=== PATIENT | female | born 1975 | race Caucasian/White ===

== ENCOUNTER 2020-06-24 13:02 | Observation (INO) | payer BC, OTHER ==
[2020-06-24] MEDS ORDERED: SODIUM CHLORIDE 0.9% 1,000 ML IV ONE (14:03)
[2020-06-24 14:08] LABS: Appearance,Urine Clear (Clear); Bilirubin,Urine Negative (Negative); Blood,Urine Negative (Negative); Color,Urine Yellow; Glucose,Urine (UA) Negative (Negative); Ketones,Urine Negative (Negative); Leukocyte Esterase,Urine Negative (Negative); Nitrite,Urine Negative (Negative); PH, Urine 5.5 (5.0-8.0); Protein,Urine Negative (Negative); Specific Gravity,Urine 1.013 (1.001-1.035); Urobilinogen,Urine <2.0 mg/dL (<2.0)
[2020-06-24 14:21] LABS: ALT 9 U/L (4-34); AST 19 U/L (14-36); Acetaminophen <10.0 ug/mL; African American GFR (CKD) >90 (>60 ml/min/1.73 sqM); Albumin 4.2 g/dL (3.5-5.0); Alcohol <10 mg/dL; Alkaline Phosphatase 89 U/L (38-126); Anion Gap 9 mmol/L; Blood Urea Nitrogen 9 mg/dL (7-17); Calcium 9.5 mg/dL (8.4-10.2); Carbon Dioxide 21 mmol/L (22-30); Chloride 111 mmol/L (98-107); Creatine Kinase 62 U/L (30-135); Glucose 97 mg/dL (74-99); INR 0.9 (<1.2); Non-African American GFR(CKD) 86 (>60 ml/min/1.73 sqM); Partial Thromboplastin Time 25.1 sec (22.0-30.0); Potassium 4.2 mmol/L (3.5-5.1); Prothrombin Time 9.8 sec (9.0-12.0); Salicylate <1.0 mg/dL; Sodium 141 mmol/L (137-145); Total Bilirubin 0.4 mg/dL (0.2-1.3); Total Protein 7.5 g/dL (6.3-8.2)
[2020-06-24 14:26] LABS: Basophils # (A) 0.1 k/uL (0-0.2); Basophils % (A) 1 %; Eosinophils # (A) 0.1 k/uL (0-0.7); Eosinophils % (A) 1 %; HCT 46.1 % (34.0-46.0); HGB 14.5 gm/dL (11.4-16.0); Lymphocytes # (A) 3.6 k/uL (1.0-4.8); Lymphocytes % (A) 35 %; MCH 31.5 pg (25.0-35.0); MCHC 31.5 g/dL (31.0-37.0); Monocytes # (A) 0.4 k/uL (0-1.0); Monocytes % (A) 4 %; Neutrophils # (A) 5.9 k/uL (1.3-7.7); Neutrophils % (A) 58 %; Platelet Count 326 k/uL (150-450); WBC 10.1 k/uL (3.8-10.6)
[2020-06-24 14:37] LABS: MCV 100.1 fL (80.0-100.0)
[2020-06-24 14:43] LABS: Amphetamine Screen,Urine Not Detected (NotDetected); Barbiturate Screen,Urine Not Detected (NotDetected); Benzodiazepines Screen,Urine Detected (NotDetected); Cocaine Screen,Urine Not Detected (NotDetected); Methadone Screen, Urine Not Detected (NotDetected); Opiate Screen,Urine Not Detected (NotDetected); Oxycodone Screen, Urine Not Detected (NotDetected); Phencyclidine Screen,Urine Not Detected (NotDetected); Tricyclic Antidepressant,Urine Not Detected (NotDetected); Urn Cannabinoid Scrn Detected (NotDetected)
--- NOTE | 2020-06-24 15:55 | XR ---
EXAMINATION TYPE: XR chest 2V DATE OF EXAM: 06/24/2020 COMPARISON: 11/29/2015 HISTORY: Chest pain TECHNIQUE: Frontal and lateral views of the chest are obtained. FINDINGS: There is no focal air space opacity. No evidence for pneumothorax. No pleural effusion. The cardiac silhouette size is within normal limits. The osseous structures are grossly intact. IMPRESSION: 1. No acute cardiopulmonary process.
--- NOTE | 2020-06-24 15:58 | CT ---
EXAMINATION TYPE: CT brain wo con DATE OF EXAM: 06/24/2020 COMPARISON: None HISTORY: Altered mental status. CT DLP: 1064.[address] of the brain was performed. The ventricles, basal cisterns and sulci overlying the cerebral convexities demonstrate a normal appe arance. There is no evidence for intracranial hemorrhage or sulcal effacement. No mass effects are seen. Osseous calvarium is intact. If symptoms persist consider MRI as clinically warranted. IMPRESSION: 1. No acute intracranial process is seen at this time.
--- NOTE | 2020-06-24 16:03 | ED ---
General Adult HPI - General Chief complaint: Recheck/Abnormal Lab/Rx Stated complaint: Nauseas Time Seen by Provider: 06/24/20 13:28 Source: patient Mode of arrival: wheelchair Limitations: no limitations - History of Present Illness Initial comments: Patient is a 44-year-old male with past medical history of bipolar, seizure disorder who presents emergency Department with altered mental status. Patient's psychiatrist makes a call to the emergency department to notify us of the patient's planned transport to the hospital. Patient was seen in office today. He reported that she had weakness, nausea and decreased mental status. Mother states that this has been going on for the past 7-10 days. She has had a decreased appetite for the past 2 weeks and has had PE. Reports every time she tries to eat she throws up. Admits to having an appetite. Psychiatrist reports of the patient is on several [place] medications include Geodon, Xanax, Cymb bill, trazodone, Remeron, Lamictal, Keppra and Topamax. Last medication change was 2 months ago. Patient denies any abdominal pain. Admits to headaches without visual changes. No unilateral numbness or weakness. Denies any chest pain or shortness of breath. Denies any back or flank pain. No changes in her bowel or bladder habits. No other alleviating, precipitating or modifying factors - Related Data Home Medications Medication Instructions Recorded Confirmed Topiramate [Topamax] 400 mg PO DAILY 05/06/14 06/24/20 ALPRAZolam [Xanax] 1 mg PO QID 11/26/15 06/24/20 levETIRAcetam [Keppra] 1,500 mg PO BID 11/26/15 06/24/20 traZODone HCL 150 mg PO HS 11/26/15 06/24/20 Ziprasidone [Geodon] 160 mg PO HS 12/16/15 06/24/20 DULoxetine HCL [Cymbalta] 30 mg PO DAILY 06/24/20 06/24/20 Mirtazapine [Remeron] 30 mg PO HS 06/24/20 06/24/20 Topiramate [Topamax] 200 mg PO HS 06/24/20 06/24/20 lamoTRIgine [LaMICtal] 200 mg PO BID 06/24/20 06/24/20 Allergies Allergy/AdvReac Type Severity Reaction Status Date / Time No Known Allergies Allergy Verified 06/24/20 14:26 Review of Systems ROS Statement: Those systems with pertinent positive or pertinent negative responses have been documented in the HPI. ROS Other: All systems not noted in ROS Statement are negative. Past Medical History Past Medical History: Hearing Disorder / Deafness, Seizure Disorder Additional Past Medical History / Comment(s): EPILEPSY, LAST SEIZURE 09/2015. Neuropathy HANDS. History of Any Multi-Drug Resistant Organisms: None Reported Past Surgical History: Appendectomy, Hysterectomy, Orthopedic Surgery Additional Past Surgical History / Comment(s): RADIAL NERVE SURG [place]. Past Anesthesia/Blood Transfusion Reactions: No Reported Reaction Past Psychological History: Anxiety, Bipolar, Depression Smoking Status: Current every day smoker Past Alcohol Use History: Occasional Past Drug Use History: Marijuana - Past Family History Father Family Medical History: Coronary Artery Disease (CAD) General Exam Limitations: no limitations General appearance: alert, in no apparent distress Head exam: Present: atraumatic, normocephalic, normal inspection Eye exam: Present: normal appearance, PERRL, EOMI. Absent: scleral icterus, c onjunctival injection, periorbital swelling ENT exam: Present: normal exam, mucous membranes moist Neck exam: Present: normal inspection. Absent: tenderness, meningismus, lymphadenopathy Respiratory exam: Present: normal lung sounds bilaterally. Absent: respiratory distress, wheezes, rales, rhonchi, stridor Cardiovascular Exam: Present: regular rate, normal rhythm, normal heart sounds. Absent: systolic murmur, diastolic murmur, rubs, gallop, clicks GI/Abdominal exam: Present: soft, normal bowel sounds. Absent: distended, tenderness, guarding, rebound, rigid Extremities exam: Present: normal inspection, full ROM, normal capillary refill. Absent: tenderness, pedal edema, joint swelling, calf tenderness Back exam: Present: normal inspection Neurological exam: Present: alert, oriented X3, CN II-XII intact Psychiatric exam: Present: flat affect Skin exam: Present: warm, dry, intact, normal color. Absent: rash Course Vital Signs 06/24/20 06/24/20 13:15 16:59 Temperature 98.3 F Pulse Rate 85 64 Respiratory 18 17 Rate Blood Pressure 98/96 106/68 O2 Sat by Pulse 96 98 Oximetry EKG Findings - EKG Comments: EKG Findings:: EKG demonstrates normal sinus rhythm with ventricular rate of 69. MN interval 166. QRS 88. QTC of 413. No acute ST segment elevations or depressions concerning for ischemic changes Medical Decision Making - Medical Decision Making Upon arrival patient is placed into room 24. A thorough history and physical exam was performed. Peripheral iv is established. Patient is given a liter bolus of normal saline. Laboratory studies were conducted. She went for CT of her brain because of her reported altered mental status and headache. Urine is positive for benzodiazepines and marijuana. CT brain demonstrates no acute intracranial process. Chest x-ray demonstrates no acute cardiopulmonary process. A call discuss case with Dr. Enriquez who accepted admission for the patient. I will place psychiatry on consult as well as GI. Patient remained in stable condition awaiting a bed on the floor - Lab Data Result diagrams: 06/25/20 08:16 06/25/20 08:16 Lab Results 06/24/20 06/24/20 06/24/20 Range/Units 13:41 13:41 13:41 WBC 10.1 (3.8-10.6) k/uL RBC 4.60 (3.80-5.40) m/uL Hgb 14.5 (11.4-16.0) gm/dL Hct 46.1 H (34.0-46.0) % MCV 100.1 H D (80.0-100.0) fL MCH 31.5 (25.0-35.0) pg MCHC 31.5 (31.0-37.0) g/dL RDW 12.0 (11.5-15.5) % Plt Count 326 (150-450) k/uL Neutrophils % 58 % Lymphocytes % 35 % Monocytes % 4 % Eosinophils % 1 % Basophils % 1 % Neutrophils # 5.9 (1.3-7.7) k/uL Lymphocytes # 3.6 (1.0-4.8) k/uL Monocytes # 0.4 (0-1.0) k/uL Eosinophils # 0.1 (0-0.7) k/uL Basophils # 0.1 (0-0.2) k/uL PT 9.8 (9.0-12.0) sec INR 0.9 (<1.2) APTT 25.1 (22.0-30.0) sec Sodium (137-145) mmol/L Potassium (3.5-5.1) mmol/L Chloride (98-107) mmol/L Carbon Dioxide (22-30) mmol/L Anion Gap mmol/L BUN (7-17) mg/dL Creatinine (0.52-1.04) mg/dL Est GFR (CKD-EPI)AfAm (>60 ml/min/1.73 sqM) Est GFR (CKD-EPI)NonAf (>60 ml/min/1.73 sqM) Glucose (74-99) mg/dL Calcium (8.4-10.2) mg/dL Total Bilirubin (0.2-1.3) mg/dL AST (14-36) U/L ALT (4-34) U/L Alkaline Phosphatase (38-126) U/L Ammonia (<30) umol/L Creatine Kinase (30-135) U/L Troponin I (0.000-0.034) ng/mL Total Protein (6.3-8.2) g/dL Albumin (3.5-5.0) g/dL Urine Color Yellow Urine Appearance Clear (Clear) Urine pH 5.5 (5.0-8.0) Ur Specific [place] 1.013 (1.001-1.035) Urine Protein Negative (Negative) Urine Glucose (UA) Negative (Negative) Urine Ketones Negative (Negative) Urine Blood Negative (Negative) Urine Nitrite Negative (Negative) Urine Bilirubin Negative (Negative) Urine Urobilinogen <2.0 (<2.0) mg/dL Ur Leukocyte Esterase Negative (Negative) Urine HCG, Qual (Not Detectd) Salicylates mg/dL Urine Opiates Screen Not Detected (NotDetected) Ur Oxycodone Screen Not Detected (NotDetected) Urine Methadone Screen Not Detected (NotDetected) Ur Propoxyphene Screen Not Detected (NotDetected) Acetaminophen ug/mL Ur Barbiturates Screen Not Detected (NotDetected) U Tricyclic Antidepress Not Detected (NotDetected) Ur Phencyclidine Scrn Not Detected (NotDetected) Ur Amphetamines Screen Not Detected (NotDetected) U Methamphetamines Scrn Not Detected (NotDetected) U Benzodiazepines Scrn Detected H (NotDetected) Urine Cocaine Screen Not Detected (NotDetected) U Marijuana (THC) Screen Detected H (NotDetected) Serum Alcohol mg/dL 06/24/20 06/24/20 06/24/20 Range/Units 13:41 13:41 13:41 WBC (3.8-10.6) k/uL RBC (3.80-5.40) m/uL Hgb (11.4-16.0) gm/dL Hct (34.0-46.0) % MCV (80.0-100.0) fL MCH (25.0-35.0) pg MCHC (31.0-37.0) g/dL RDW (11.5-15.5) % Plt Count (150-450) k/uL Neutrophils % % Lymphocytes % % Monocytes % % Eosinophils % % Basophils % % Neutrophils # (1.3-7.7) k/uL Lymphocytes # (1.0-4.8) k/uL Monocytes # (0-1.0) k/uL Eosinophils # (0-0.7) k/uL Basophils # (0-0.2) k/uL PT (9.0-12.0) sec INR (<1.2) APTT (22.0-30.0) sec Sodium 141 (137-145) mmol/L Potassium 4.2 (3.5-5.1) mmol/L Chloride 111 H (98-107) mmol/L Carbon Dioxide 21 L (22-30) mmol/L Anion Gap 9 mmol/L BUN 9 (7-17) mg/dL Creatinine 0.83 (0.52-1.04) mg/dL Est GFR (CKD-EPI)AfAm >90 (>60 ml/min/1.73 sqM) Est GFR (CKD-EPI)NonAf 86 (>60 ml/min/1.73 sqM) Glucose 97 (74-99) mg/dL Calcium 9.5 (8.4-10.2) mg/dL Total Bilirubin 0.4 (0.2-1.3) mg/dL AST 19 (14-36) U/L ALT 9 (4-34) U/L Alkaline Phosphatase 89 (38-126) U/L Ammonia 32 H (<30) umol/L Creatine Kinase 62 (30-135) U/L Troponin I (0.000-0.034) ng/mL Total Protein 7.5 (6.3-8.2) g/dL Albumin 4.2 (3.5-5.0) g/dL Urine Color Urine Appearance (Clear) Urine pH (5.0-8.0) Ur Specific [place] (1.001-1.035) Urine Protein (Negative) Urine Glucose (UA) (Negative) Urine Ketones (Negative) Urine Blood (Negative) Urine Nitrite (Negative) Urine Bilirubin (Negative) Urine Urobilinogen (<2.0) mg/dL Ur Leukocyte Esterase (Negative) Urine HCG, Qual Not Detected (Not Detectd) Salicylates <1.0 mg/dL Urine Opiates Screen (NotDetected) Ur Oxycodone Screen (NotDetected) Urine Methadone Screen (NotDetected) Ur Propoxyphene Screen (NotDetected) Acetaminophen <10.0 ug/mL Ur Barbiturates Screen (NotDetected) U Tricyclic Antidepress (NotDetected) Ur Phencyclidine Scrn (NotDetected) Ur Amphetamines Screen (NotDetected) U Methamphetamines Scrn (NotDetected) U Benzodiazepines Scrn (NotDetected) Urine Cocaine Screen (NotDetected) U Marijuana (THC) Screen (NotDetected) Serum Alcohol <10 mg/dL 06/24/20 Range/Units 13:41 WBC (3.8-10.6) k/uL RBC (3.80-5.40) m/uL Hgb (11.4-16.0) gm/dL Hct (34.0-46.0) % MCV (80.0-100.0) fL MCH (25.0-35.0) pg MCHC (31.0-37.0) g/dL RDW (11.5-15.5) % Plt Count (150-450) k/uL Neutrophils % % Lymphocytes % % Monocytes % % Eosinophils % % Basophils % % Neutrophils # (1.3-7.7) k/uL Lymphocytes # (1.0-4.8) k/uL Monocytes # (0-1.0) k/uL Eosinophils # (0-0.7) k/uL Basophils # (0-0.2) k/uL PT (9.0-12.0) sec INR (<1.2) APTT (22.0-30.0) sec Sodium (137-145) mmol/L Potassium (3.5-5.1) mmol/L Chloride (98-107) mmol/L Carbon Dioxide (22-30) mmol/L Anion Gap mmol/L BUN (7-17) mg/dL Creatinine (0.52-1.04) mg/dL Est GFR (CKD-EPI)AfAm (>60 ml/min/1.73 sqM) Est GFR (CKD-EPI)NonAf (>60 ml/min/1.73 sqM) Glucose (74-99) mg/dL Calcium (8.4-10.2) mg/dL Total Bilirubin (0.2-1.3) mg/dL AST (14-36) U/L ALT (4-34) U/L Alkaline Phosphatase (38-126) U/L Ammonia (<30) umol/L Creatine Kinase (30-135) U/L Troponin I <0.012 (0.000-0.034) ng/mL Total Protein (6.3-8.2) g/dL Albumin (3.5-5.0) g/dL Urine Color Urine Appearance (Clear) Urine pH (5.0-8.0) Ur Specific [place] (1.001-1.035) Urine Protein (Negative) Urine Glucose (UA) (Negative) Urine Ketones (Negative) Urine Blood (Negative) Urine Nitrite (Negative) Urine Bilirubin (Negative) Urine Urobilinogen (<2.0) mg/dL Ur Leukocyte Esterase (Negative) Urine HCG, Qual (Not Detectd) Salicylates mg/dL Urine Opiates Screen (NotDetected) Ur Oxycodone Screen (NotDetected) Urine Methadone Screen (NotDetected) Ur Propoxyphene Screen (NotDetected) Acetaminophen ug/mL Ur Barbiturates Screen (NotDetected) U Tricyclic Antidepress (NotDetected) Ur Phencyclidine Scrn (NotDetected) Ur Amphetamines Screen (NotDetected) U Methamphetamines Scrn (NotDetected) U Benzodiazepines Scrn (NotDetected) Urine Cocaine Screen (NotDetected) U Marijuana (THC) Screen (NotDetected) Serum Alcohol mg/dL Disposition Clinical Impression: Acute encephalopathy, Nausea and vomiting Disposition: ADMITTED IP TO THIS HOSP Condition: Stable Is patient prescribed a controlled substance at d/c from ED?: No Decision to Admit Reason: Admit from EC Decision Date: 06/24/20 Decision Time: 16:36
[2020-06-24] MEDS ORDERED: NALOXONE 0.4 MG/ML 1 ML VIAL IV PRN (16:36)
[2020-06-24] MEDS ORDERED: ONDANSETRON 4 MG/2 ML VIAL IVP PRN (16:36)
[2020-06-24] MEDS ORDERED: NICOTINE 21MG/24HR PATCH TRANSDERM STA (16:42)
[2020-06-24] MEDS: PANTOPRAZOLE 40 MG/10 ML VIAL IV SCH (17:16)
[2020-06-24] MEDS: SODIUM CHLORIDE 0.9% 1,000 ML IV SCH (18:01)
[2020-06-24] MEDS: MIRTAZAPINE 15 MG TAB PO SCH (21:03)
[2020-06-24] MEDS ORDERED: ALPRAZolam 1 MG TAB PO ONE (22:00)
[2020-06-25] MEDS: SODIUM CHLORIDE 0.9% 1,000 ML IV SCH ×3 (02:37→22:24)
[2020-06-25] MEDS: PANTOPRAZOLE 40 MG/10 ML VIAL IV SCH (08:31)
[2020-06-25] MEDS: DULoxetine HCL 30 MG CAPSULE.DR PO SCH (08:32)
[2020-06-25 08:54] LABS: Basophils % (A) 1 %; Eosinophils % (A) 0 %; HCT 45.8 % (34.0-46.0); HGB 14.3 gm/dL (11.4-16.0); Lymphocytes # (A) 2.4 k/uL (1.0-4.8); Lymphocytes % (A) 32 %; MCH 31.8 pg (25.0-35.0); MCHC 31.2 g/dL (31.0-37.0); MCV 102.1 fL (80.0-100.0); Mean Platelet Volume 6.8; Monocytes # (A) 0.3 k/uL (0-1.0); Monocytes % (A) 4 %; Neutrophils # (A) 4.7 k/uL (1.3-7.7); Neutrophils % (A) 62 %; Platelet Count 325 k/uL (150-450); RBC 4.49 m/uL (3.80-5.40); WBC 7.4 k/uL (3.8-10.6)
[2020-06-25 09:05] LABS: African American GFR (CKD) >90 (>60 ml/min/1.73 sqM); Anion Gap 7 mmol/L; Blood Urea Nitrogen 6 mg/dL (7-17); Calcium 8.7 mg/dL (8.4-10.2); Carbon Dioxide 18 mmol/L (22-30); Chloride 116 mmol/L (98-107); Glucose 109 mg/dL (74-99); Non-African American GFR(CKD) >90 (>60 ml/min/1.73 sqM); Potassium 4.5 mmol/L (3.5-5.1); Sodium 141 mmol/L (137-145)
[2020-06-25] MEDS ORDERED: IBUPROFEN 800 MG TAB PO PRN (09:58)
--- NOTE | 2020-06-25 10:05 | P.HPIM ---
History of Present Illness H&P Date: 06/25/20 Chief Complaint: Nausea and diarrhea Vaishnavi Mendieta, is a 44-year-old female who presented to [facility] emergency room with a chief complaint of severe nausea and episodes of diarrhea and altered mental status, patient has known history of bipolar disorde r and anxiety disorder and seizure disorder, she was evaluated in the emergency room there was concern about polypharmacy, patient is maintained on Remeron, trazodone, Cymbalta, Xanax, Lamictal, Geodon, Keppra, and Topamax medications were held in the emergency room and patient was admitted to observation unit for further evaluation, neurology and psychiatry consultation were requested to evaluate medications, gastroenterology consultation was requested in that regard to nausea and diarrhea. Patient stated that she had cardiopulmonary arrest at age of 6 months she developed seizure disorder after the and has been maintained on seizure medications since then, she also has a known history of bipolar disorder and follows with psychiatry as outpatient. She denies any previous history of acute pancreatitis peptic ulcer disease or gallbladder disease. Patient was evaluated in the emergency room, her vital exam reveals a temperature of 98.3 pulse 85 respiration 18 blood pressure 98/69 pulse ox 96% on room air, her CBC was normal, CMP was normal ammonia level was slightly elevated at 32, amylase and lipase was not done, chest x-ray did not reveal any evidence of acute cardiopulmonary process, EKG was normal, computed tomography scan of the brain did not reveal any evidence of acute intracranial process. Patient was admitted to observation unit, consultation for psychiatry neurology and gastroenterology was requested. Patient was seen and examined on the observation unit, she is feeling very anxious, she was trying to take her own pills as she was worried about having seizures, Keppra was restarted in the emergency room, however patient was worried about Topamax and Lamictal, I have reordered these medication to restart now awaiting further recommendation from neurology. Past Medical History Past Medical History: Hearing Disorder / Deafness, Seizure Disorder Additional Past Medical History / Comment(s): EPILEPSY, LAST SEIZURE 09/2015. Neuropathy HANDS. History of Any Multi-Drug Resistant Organisms: None Reported Past Surgical History: Appendectomy, Hysterectomy, Orthopedic Surgery Additional Past Surgical History / Comment(s): RADIAL NERVE SURG [place]. Past Anesthesia/Blood Transfusion Reactions: No Reported Reaction Past Psychological History: Anxiety, Bipolar, Depression Smoking Status: Current every day smoker Past Alcohol Use History: Occasional Past Drug Use History: Marijuana - Past Family History Father Family Medical History: Coronary Artery Disease (CAD) Medications and Allergies Home Medications Medication Instructions Recorded Confirmed Type Topiramate [Topamax] 400 mg PO DAILY 05/06/14 06/24/20 History ALPRAZolam [Xanax] 1 mg PO QID 11/26/15 06/24/20 History levETIRAcetam [Keppra] 1,500 mg PO BID 11/26/15 06/24/20 History traZODone HCL 150 mg PO HS 11/26/15 06/24/20 History Ziprasidone [Geodon] 160 mg PO HS 12/16/15 06/24/20 History DULoxetine HCL [Cymbalta] 30 mg PO DAILY 06/24/20 06/24/20 History Mirtazapine [Remeron] 30 mg PO HS 06/24/20 06/24/20 History Topiramate [Topamax] 200 mg PO HS 06/24/20 06/24/20 History lamoTRIgine [LaMICtal] 200 mg PO BID 06/24/20 06/24/20 History Allergies Allergy/AdvReac Type Severity Reaction Status Date / Time No Known Allergies Allergy Verified 06/24/20 14:26 Physical Exam Vitals: Vital Signs Temp Pulse Pulse Pulse Resp BP BP 06/25/20 08:14 98.2 F 67 16 108/74 06/25/20 02:42 98.1 F 67 16 06/24/20 20:15 97.9 F 71 18 06/24/20 17:53 98.7 F 69 16 06/24/20 17:51 98.7 F 79 16 06/24/20 16:59 64 17 106/68 06/24/20 13:15 98.3 F 85 18 98/96 BP Pulse Ox 06/25/20 08:14 94 L 06/25/20 02:42 90/55 93 L 06/24/20 20:15 87/52 96 06/24/20 17:53 96 06/24/20 17:51 108/73 96 06/24/20 16:59 98 06/24/20 13:15 96 Intake and Output 06/24/20 06/25/20 06/25/20 22:59 06:59 14:59 Other: Voiding Method Toilet # Voids 0 1 Weight 58.967 kg In general patient is alert and oriented 3 seems anxious otherwise in no distress HEENT head normocephalic and atraumatic Neck is supple no JVD no goiter no lymphadenopathy Chest exam reveals a few scattered rhonchi no wheezing Cardiac exam reveals regular heart sounds no gallops no murmurs Abdomen is soft nontender no organomegaly with normal bowel sounds Extremity exam reveals no edema no cyanosis or clubbing Neurological examination reveals no gross focal deficit Results CBC & Chem 7: 06/25/20 08:16 06/25/20 08:16 Labs: Abnormal Lab Results - Last 24 Hours (Table) 06/24/20 06/24/20 06/24/20 Range/Units 13:41 13:41 13:41 Hct 46.1 H (34.0-46.0) % MCV 100.1 H D (80.0-100.0) fL Chloride 111 H (98-107) mmol/L Carbon Dioxide 21 L (22-30) mmol/L BUN (7-17) mg/dL Glucose (74-99) mg/dL Ammonia (<30) umol/L U Benzodiazepines Scrn Detected H (NotDetected) U Marijuana (THC) Screen Detected H (NotDetected) 06/24/20 06/25/20 06/25/20 Range/Units 13:41 08:16 08:16 Hct (34.0-46.0) % MCV 102.1 H (80.0-100.0) fL Chloride 116 H (98-107) mmol/L Carbon Dioxide 18 L (22-30) mmol/L BUN 6 L (7-17) mg/dL Glucose 109 H (74-99) mg/dL Ammonia 32 H (<30) umol/L U Benzodiazepines Scrn (NotDetected) U Marijuana (THC) Screen (NotDetected) Thrombosis Risk Factor Assmnt - Choose All That Apply Each Factor Represents 1 point: Age 41-60 years Other Risk Factors: No Other congenital or acquired thrombophilia - If yes, enter type in comment: No Thrombosis Risk Factor Assessment Total Risk Factor Score: 1 Thrombosis Risk Factor Assessment Level: Low Risk Assessment and Plan Plan: 1. Mental status changes was somnolence and confusion, improved significantly, patient is anxious at this time otherwise her mental status is normal 2. Underlying history of seizure disorder, seizure medications including Keppra Lamictal and Topamax were reordered, neurology consultation requested. 3. Underlying history of bipolar disorder, psychiatry consultation requested 4. Underlying history of anxiety disorder 5. Severe nausea, at this time will check abdomen ultrasound, will check amylase and lipase, gastroenterology consultation requested, IV Protonix ordered Will follow closely Awaiting datapower consultant input
[2020-06-25] MEDS: lamoTRIgine 100 MG TAB PO SCH ×2 (10:36→22:14)
[2020-06-25] MEDS: NICOTINE 21MG/24HR PATCH TRANSDERM SCH (10:36)
[2020-06-25] MEDS: TOPIRAMATE 100 MG TAB PO SCH (10:37)
[2020-06-25] MEDS: ALPRAZolam 1 MG TAB PO SCH ×4 (11:05→22:24)
[2020-06-25 11:09] LABS: Amylase 42 U/L (30-110)
[2020-06-25] MEDS: ALBUTEROL NEBULIZED 2.5 MG/3 ML INHALATION SCH ×3 (11:22→19:25)
[2020-06-25] MEDS ORDERED: ALPRAZolam 1 MG TAB PO SCH (13:00)
--- NOTE | 2020-06-25 14:21 | P.CN ---
Psychiatric Consult - . Consult date: 06/25/20 Consult:: IDENTIFYING DATA: This patient is a 44-year-old female with significant history of bipolar disorder, anxiety disorder, and seizure disorder who presented with altered mental status. HISTORY OF PRESENT ILLNESS: The patient presented to the hospital 06/24/2020 with a chief complaint of severe nausea, diarrhea, and altered mental status. Patient reports that she has been experiencing significant nausea and diarrhea over the past few months. In regards to mood, she reports that she has constantly been anxious and is currently dealing with some depression. She reports that her depression is seasonal and occurs during the anniversary of her 's which is coming up this July. She has last seen her outpatient psychiatrist Dr. Torre on 06/16/2020 who is recently adjusted her medications by decreasing her trazodone to 150 mg at bedtime and adding Remeron and Cymbalta to her medication regimen. In regards to side effects of medications, patient endorses significant restlessness which she attributes to anxiety. Patient doesn't endorse significant history of bipolar disorder. She reports previous manic episodes with the last being a few months ago. She describes periods of excessive energy, impulsivity, pressured speech, and increased goal-directed behavior. She denies any history of psychosis. At this time patient denies any suicidal or homicidal ideations, intent or plan. Patient denies any auditory, visual hallucinations and denies any paranoia or delusions. Patients admits to using marijuana occasionally but denies any alcohol, tobacco, or illicit drug use. PAST PSYCHIATRIC HISTORY: Patient has a a history of bipolar disorder, anxiety disorder, and seizure disorder. Patient is on multiple psychotropic medications including Remeron, Cymbalta, lamotrigine, Topamax, trazodone, and Geodon. She reports 1 previous psychiatric admission or suicide ideation. She is currently open to psychiatric services through Dr. Torre and is in counseling services through [facility] educational services. PAST MEDICAL HISTORY: As per medical evaluation, seizure disorder, neuropathy, appendectomy, hysterectomy, orthopedic surgery. ALLERGIES: as per EMR. CHEMICAL DEPENDENCY HISTORY: as per HPI. FAMILY PSYCHIATRIC/SUBSTANCE USE HISTORY: Patient reports both father and sister are bipolar. She reports that her sister is an alcoholic. SOCIAL HISTORY: Patient was born and raised in [place], [place]. Patient's highest level of education is 12th grade. She reports no consistent employment history. She is . MENTAL STATUS EXAM: General Appearance: Patient appears to be stated age is alert, pleasant, and cooperative. Patient appears to have fair hygiene and grooming wearing hospital gown with fair eye contact. Behavior: Patient is calmly lying in bed without any agitated behavior. Patient is currently enjoying her lunch. Speech: Patient's speech is fluent and nonpressured. Mood/Affect: Patient reports their mood is "depressed and anxious", affect is euthymic with appropriate range. Suicidality/Homicidality: Patient denies having any suicidal or homicidal ideation intent or plan. Perceptions: Patient denies any visual hallucinations and denies any auditory hallucinations Though content/process: There is no evidence of any delusional thought content and thought process is linear and goal-directed. Memory and concentration: AOX3, grossly intact for the purposes of this session. Can spell "WORLD" backwards Judgment and insight: Fair IMPRESSIONS: Acute encephalopathy, improving Bipolar disorder, stable Anxiety disorder, unspecified Cannabis use disorder PLAN: -At this time patient DOES NOT meet criteria for inpatient psychiatric admission. -Delirium precautions recommended with patient including - avoiding use of narcotics and [employer] sedatives, limit anticholinergic medications when possible, frequent re-orientation, minimize use of restraints, open window shades during the day and close them at night -Would recommend the following medication changes/additions: We will discontinue the patient's trazodone to simplify patient's medication regimen. It is likely that ziprasidone may contribute to akathisia which the patient may be experiencing but the patient appears stable at this time. Will defer to her outpatient psychiatric provider for further medication adjustments. Continue other medications at this time. -Psychiatry will sign off at this point, please contact with any questions. 06/25/20 14:11
--- NOTE | 2020-06-25 14:29 | US ---
EXAMINATION TYPE: US abdomen complete DATE OF EXAM: 06/25/2020 COMPARISON: NONE CLINICAL HISTORY: nausea. EXAM MEASUREMENTS: Liver Length: 16.7 cm Gallbladder Wall: 0.1 cm CBD: 0.4 cm Spleen: 8.9 cm Right Kidney: 11.1 x 4.3 x 5.1 cm Left Kidney: 10.3 x4.6 x 3.5 cm Pancreas: Obscured by bowel gas, visualized portions wnl Liver: wnl Gallbladder: wnl Evidence for sonographic Araya's sign: No CBD: wnl Spleen: wnl Right Kidney: No hydronephrosis or masses seen Left Kidney: No hydronephrosis or masses seen Upper IVC: wnl Abd Aorta: wnl IMPRESSION: 1. Normal abdomen ultrasound
--- NOTE | 2020-06-25 16:50 | P.CNNES ---
History of Present Illness Consult date: 06/25/20 Requesting physician: Juan Antonio Villa Reason for Consult: Mental status change History of Present Illness: Patient is a 44-year-old female came to the hospital yesterday at 1 PM with history of bipolar disorder, seizure disorder, came to the ED with altered mental status. Patient states that she came to the hospital because she has been having nausea for the last 1 month. She is also having diarrhea for last 6 months, headaches off and on. She feels that she is on too much medication. Patient denies any numbness tingling or focal weakness. She has decreased appetite. Vital signs on arrival was blood pressure 106/68, pulse rate 85 and temperature 98.3. Blood test shows normal CBC with elevated MCV 100.1. INR is 0.9, Chem-20 is normal with elevated ammonia 32. CPK and troponin negative. UA negative. Urine drug screen positive for marijuana and benzodiazepines. Blood alcohol level negative. Chest x-ray, EKG are normal. Computed tomography scan of the head showed no acute intracranial process. Patient does take Topamax 400 mg in the morning and 200 mg at bedtime, Lamictal 200 mg twice a day, Geodon 160 mg at bedtime, Xanax 1 mg 4 times a day Keppra 1500 mg twice a day, trazodone 150 mg at bedtime. Patient's last Keppra level was 35 (3-60), Lamictal 3.5 (2-15) on 05/26/2020. Patient is also on Cymbalta 30 mg and Remeron 30 mg. 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 Patient gets grand mal seizures. Patient states that she used to get 6 grand mal seizures a day until 2002, when she was placed on combination of Keppra and Topamax. Since then she has been having about one grand mal seizure a year. Her last seizure was about a year ago. Patient also is on Lamictal but she states is given by her psychiatrist for bipolar disorder. Patient follows up with Dr. Pope in [place]. Patient has smoked 2 to 2-1/2 pack per day since age 11. She consumes 2-3 drinks of captain Handy and Dr. Shaffer whenever she plays horseshoe every . However the season is over and she has not drank alcohol in the last 1 month. Patient uses marijuana. Patient complains of nausea. Review of Systems As above in detail. All other review of systems unremarkable. Denies any chest pain shortness or breath wheezing or cough. Past Medical History Past Medical History: Hearing Disorder / Deafness, Seizure Disorder Additional Past Medical History / Comment(s): EPILEPSY, LAST SEIZURE 09/2015. Neuropathy HANDS. History of Any Multi-Drug Resistant Organisms: None Reported Past Surgical History: Appendectomy, Hysterectomy, Orthopedic Surgery Additional Past Surgical History / Comment(s): RADIAL NERVE SURG [place]WICK. Past Anesthesia/Blood Transfusion Reactions: No Reported Reaction Past Psychological History: Anxiety, Bipolar, Depression Smoking Status: Current every day smoker Past Alcohol Use History: Occasional Past Drug Use History: Marijuana - Past Family History Father Family Medical History: Coronary Artery Disease (CAD) Medications and Allergies Home Medications Medication Instructions Recorded Confirmed Type Topiramate [Topamax] 400 mg PO DAILY 05/06/14 06/24/20 History ALPRAZolam [Xanax] 1 mg PO QID 11/26/15 06/24/20 History levETIRAcetam [Keppra] 1,500 mg PO BID 11/26/15 06/24/20 History traZODone HCL 150 mg PO HS 11/26/15 06/24/20 History Ziprasidone [Geodon] 160 mg PO HS 12/16/15 06/24/20 History DULoxetine HCL [Cymbalta] 30 mg PO DAILY 06/24/20 06/24/20 History Mirtazapine [Remeron] 30 mg PO HS 06/24/20 06/24/20 History Topiramate [Topamax] 200 mg PO HS 06/24/20 06/24/20 History lamoTRIgine [LaMICtal] 200 mg PO BID 06/24/20 06/24/20 History Allergies Allergy/AdvReac Type Severity Reaction Status Date / Time No Known Allergies Allergy Verified 06/24/20 14:26 Physical Examination - Vital Signs Vital Signs: Vital Signs Temp Pulse Pulse Pulse Resp BP BP 06/25/20 11:33 76 06/25/20 11:25 68 06/25/20 08:14 98.2 F 67 16 108/74 06/25/20 02:42 98.1 F 67 16 06/24/20 20:15 97.9 F 71 18 06/24/20 17:53 98.7 F 69 16 06/24/20 17:51 98.7 F 79 16 06/24/20 16:59 64 17 106/68 06/24/20 13:15 98.3 F 85 18 98/96 BP Pulse Ox 06/25/20 11:33 06/25/20 11:25 06/25/20 08:14 94 L 06/25/20 02:42 90/55 93 L 06/24/20 20:15 87/52 96 06/24/20 17:53 96 06/24/20 17:51 108/73 96 06/24/20 16:59 98 06/24/20 13:15 96 Intake and Output 06/24/20 06/25/20 06/25/20 22:59 06:59 14:59 Other: Voiding Method Toilet # Voids 0 1 Weight 58.967 kg On examination patient is a middle aged female, in no acute distress. Patient is alert awake oriented to time place and person. Speech and language functions are normal. Attention and concentration fund of knowledge is adequate. On cranial nerve examination pupils are round and reactive to light, visual younger are full on confrontation, extraocular muscles are intact with no nystagmus. Face is symmetric, tongue protrudes the midline. Palatal elevation and sensation normal. Hearing and shoulder shrug normal. On muscle strength testing there is no pronator drift and the strength is normal in arms and legs distally and proximally. Deep tendon reflexes are symmetric, 1+ to 2+ and plantars downgoing. Sensory touch is equal. No ataxia for [id number] milli ting tone and bulk of muscles normal. Gait deferred. No carotid bruit heard, S1 and S2 audible. Abdomen soft nontender. Chest is clear. No edema. Results - Laboratory Findings CBC and BMP: 06/25/20 08:16 06/25/20 08:16 Abnormal Lab Findings: Abnormal Labs 06/24/20 06/24/20 06/24/20 13:41 13:41 13:41 Hct 46.1 H MCV 100.1 H D Chloride 111 H Carbon Dioxide 21 L BUN Glucose Ammonia U Benzodiazepines Scrn Detected H U Marijuana (THC) Screen Detected H 06/24/20 06/25/20 06/25/20 13:41 08:16 08:16 Hct MCV 102.1 H Chloride 116 H Carbon Dioxide 18 L BUN 6 L Glucose 109 H Ammonia 32 H U Benzodiazepines Scrn U Marijuana (THC) Screen 06/25/20 10:36 Hct MCV Chloride Carbon Dioxide BUN Glucose Ammonia 35 H U Benzodiazepines Scrn U Marijuana (THC) Screen Assessment and Plan Assessment: * Altered mental status, probably due to medication side effect. Patient is on numerous psychoactive medication. At present her mentation is completely clear. * Persistent nausea and diarrhea, possibly from medication side effect. * Seizure disorder, well controlled on current medication regimen. * Bipolar disorder. * Tobacco abuse * Marijuana use. Plan: * Patient is complaining of nausea and diarrhea for 6 months. Suggest gastroenterology evaluation. May need endoscopy. * Patient's mentation at this time is completely clear. Patient is on very high-dose of Topamax. Patient was recommended discussed with her neurologist about slightly cutting back on the dose of Topamax. Patient is also on num erous psychiatric medications including Geodon, trazodone, Cymbalta, Remeron, which may be affecting her mentation. Suggest review these medications, and decrease/stop some of them if possible. * No other neurological workup indicated. * Patient is clear from neurology point. Follow-up with a neurologist as outpatient as scheduled.
[2020-06-25] MEDS: PROCHLORPERAZINE 10 MG TAB PO PRN (18:31)
--- NOTE | 2020-06-25 20:24 | CONS ---
CONSULTATION DATE OF DICTATION: 06/25/2020 REASON FOR CONSULTATION: Nausea, vomiting and diarrhea. HISTORY OF PRESENT ILLNESS: The patient is a 44-year-old pleasant white female with history of bipolar disorder and seizure disorder who came into the emergency room with persistent nausea for the last one month's duration. She also has been having intermittent diarrhea with 1 or 2 loose watery bowel movements daily. She apparently has been on multiple seizure medications, none of which were changed recently; however, she is becoming extremely nauseated and believes some of it is medication-induced. On further questioning, she denies any changes in medications other than stopping the Prozac and starting on Cymbalta about 2 months ago. However, her symptoms had started even before these changes happened. She denies any abdominal pain. She reports no emesis. Since being in the hospital, she was started on Protonix and was given some Zofran. She is feeling much better. She has been having 1 or 2 loose watery bowel movements daily. No blood or mucus in the stool. She denies any recent travel history or antibiotic use. PAST MEDICAL HISTORY: Her past medical history is significant for hearing disorder, seizure disorder, peripheral neuropathy. PAST SURGICAL HISTORY: Appendectomy, hysterectomy, vagal nerve surgery. SOCIAL HISTORY: Chronic smoker. Occasional alcohol use. FAMILY HISTORY: Father had coronary artery disease. MEDICATIONS: Medications at home include Topamax, Xanax, Keppra, trazodone, Geodon, Cymbalta, Remeron, Lamictal. ALLERGIES: NONE. REVIEW OF SYSTEMS: CARDIOPULMONARY: She denies any chest pain or shortness of breath. GENITOURINARY: No dysuria or hematuria. MUSCULOSKELETAL: Unremarkable. SKIN: Unremarkable. ENDOCRINE: Unremarkable. PSYCHIATRIC: History of bipolar disorder. Sees a psychiatrist regularly. NEUROLOGY: Unremarkable. ENT/VISION: Unremarkable. CONSTITUTIONAL: No recent weight loss. No fever, chills, night sweats. HEMATOLOGY: Unremarkable. ONCOLOGY: Unremarkable. PHYSICAL EXAMINATION: She appears comfortable. No apparent distress. Vital signs are stable. Blood pressure is 108/74, pulse rate 67, temperature 98.2. HEENT examination unremarkable. Conjunctivae pink. Sclerae anicteric. Oral cavity no lesions. NECK: No JVD or lymph node enlargement. CHEST: Clear to auscultation. HEART: Regular rate and rhythm. ABDOMEN: Soft. It was non-tender, non-distended. Bowel sounds are positive. No organomegaly. EXTREMITIES: No pedal edema. SKIN: No rashes. NEUROLOGIC: Alert and oriented x3. No focal deficits. LABS: Labs done at the time of admission to the hospital: CBC with differential count showed WBC 10.1, hemoglobin 14.5, platelets normal. Basic metabolic panel is within normal limits. BUN and creatinine are within normal limits. ALT, AST, T-bilirubin and alkaline phosphatase are within normal limits. Ammonia was 32. Amylase and lipase are normal. She did have an ultrasound of the abdomen done today that was completely normal. IMPRESSION: 1. Persistent nausea for the last 1-2 months' duration, most likely medication- related. She has no associated abdominal pain. No emesis. No recent weight loss. Presently on antiemetics and is doing much better. Ultrasound of the abdomen was unremarkable. 2. History of seizure disorder, on multiple medications. 3. History of bipolar disorder. Follows with a psychiatrist closely. 4. Altered mental status has resolved. RECOMMENDATIONS: 1. Continue Protonix 40 mg daily. 2. Antiemetics as needed. 3. Advance diet as tolerated. 4. No plans for any endoscopic intervention at the present time. 5. Will follow with you closely. Thank you for this consultation. MMODL / IJN: [id number] /
[2020-06-25] MEDS ORDERED: traZODone HCL 50 MG TAB PO SCH (21:00)
[2020-06-25] MEDS ORDERED: TOPIRAMATE 100 MG TAB PO SCH (21:00)
[2020-06-25] MEDS ORDERED: ZIPRASIDONE 80 MG CAP PO SCH (21:00)
[2020-06-25] MEDS: MIRTAZAPINE 15 MG TAB PO SCH (22:16)
[2020-06-26 03:51] VITALS: RESP 16
[2020-06-26] MEDS: ALBUTEROL NEBULIZED 2.5 MG/3 ML INHALATION SCH ×2 (07:27→11:30)
[2020-06-26 07:52] VITALS: BP 121/48; TEMP 98.2
[2020-06-26] MEDS: ALPRAZolam 1 MG TAB PO SCH ×2 (08:00→13:03)
[2020-06-26] MEDS: NICOTINE 21MG/24HR PATCH TRANSDERM SCH (08:00)
[2020-06-26] MEDS: lamoTRIgine 100 MG TAB PO SCH (08:00)
[2020-06-26] MEDS: SODIUM CHLORIDE 0.9% 1,000 ML IV SCH (08:01)
[2020-06-26] MEDS: TOPIRAMATE 100 MG TAB PO SCH (08:01)
[2020-06-26] MEDS: DULoxetine HCL 30 MG CAPSULE.DR PO SCH (08:02)
[2020-06-26] MEDS: PANTOPRAZOLE 40 MG/10 ML VIAL IV SCH (08:02)
--- NOTE | 2020-06-26 10:13 | PN ---
PROGRESS NOTE DATE OF DICTATION: June 26, 2020 Patient is a 44-year-old pleasant white female with history of seizure disorder and bipolar disorder, admitted to the hospital with persistent nausea for the last one month duration, intermittent diarrhea. She is feeling better today. She still has some nausea. Did not eat her breakfast. No abdominal pain. She is complaining of some chronic lower back pain. She was started on Protonix 40 mg daily as well as Compazine as needed. PHYSICAL EXAMINATION: Appears comfortable. VITAL SIGNS: Stable. Blood pressure 106/63, pulse rate 72, temperature 98.2. HEENT examination unremarkable. Conjunctivae pink. Sclerae anicteric. Oral cavity no lesions. Neck: No JVD or lymph node enlargement. Chest was clear to auscultation. HEART: Regular rate and rhythm. ABDOMEN: Soft. Bowel sounds are positive. It was nondistended, nontender. Extremities: No pedal edema. Neuro: She is alert and oriented x3. No focal deficits. LABS: From yesterday WBC 7.4, hemoglobin 14.3, platelets normal. Basic metabolic panel was within normal limits. Amylase and lipase are normal. IMPRESSION: 1. Chronic persistent nausea, probably medication related. She is on multiple medications for seizure disorder as well as bipolar disorder. Since being on Protonix 40 mg daily and Zofran, her symptoms are somewhat better. She denies any associated abdominal pain. 2. History of seizure disorder. 3. History of bipolar disorder. RECOMMENDATIONS: 1. Continue with antiemetics as needed. 2. Continue Protonix 40 mg daily. 3. She can be discharged home today with outpatient followup and possible upper endoscopy on an outpatient basis if she has persistent symptoms. Thank you for this consultation. MMODL / IJN: [id number] /
[2020-06-26 11:40] VITALS: PULSE 77
--- NOTE | 2020-06-26 12:18 | P.HPIM ---
History of Present Illness H&P Date: 06/26/20 Diagnoses on Discharge: 1. Mental status changes was somnolence and confusion, improved significantly, patient is anxious at this time otherwise her mental status is normal 2. Underlying history of seizure disorder, seizure medications including Keppra Lamictal and Topamax were reordered, neurology consultation requested. 3. Underlying history of bipolar disorder, psychiatry consultation requested 4. Underlying history of anxiety disorder 5. Severe nausea, at this time will check abdomen ultrasound, will check amylase and lipase, gastroenterology consultation requested, IV Protonix ordered 6. Tobacco use patient was counseled in length during this admission to stop smoking Hospital course: Vaishnavi Mendieta, is a 44-year-old female who presented to [facility] emergency room with a chief complaint of severe nausea and episodes of diarrhea and altered mental status, patient has known history of bipolar disorder and anxiety disorder and seizure disorder, she was evaluated in the emergency room there was concern about polypharmacy, patient is maintained on Remeron, trazodone, Cymbalta, Xanax, Lamictal, Geodon, Keppra, and Topamax medications were held in the emergency room and patient was admitted to observation unit for further evaluation, neurology and psychiatry consultation were requested to evaluate medications, gastroenterology consultation was requested in that regard to nausea and diarrhea. Patient stated that she had cardiopulmonary arrest at age of 6 months she developed seizure disorder after the and has been maintained on seizure medications since then, she also has a known history of bipolar disorder and follows with psychiatry as outpatient. She denies any previous history of acute pancreatitis peptic ulcer disease or gallbladder disease. Patient was evaluated in the emergency room, her vital exam reveals a temperature of 98.3 pulse 85 respiration 18 blood pressure 98/69 pulse ox 96% on room air, her CBC was normal, CMP was normal ammonia level was slightly elevated at 32, amylase and lipase was not done, chest x-ray did not reveal any evidence of acute cardiopulmonary process, EKG was normal, computed tomography scan of the brain did not reveal any evidence of acute intracranial process. Patient was admitted to observation unit, consultation for psychiatry neurology and gastroenterology was requested. Patient was seen and examined on the observation unit, she is feeling very anxious, she was trying to take her own pills as she was worried about having seizures, Keppra was restarted in the emergency room, however patient was worried about Topamax and Lamictal, I have reordered these medication to restart now awaiting further recommendation from neurology. On 06/26/2020 patient was seen and examined on the observation unit she is alert and oriented 3 in no apparent distress she is still complaining of occasional nausea otherwise she denies any complaints her mental function is very clear at this time there is no fever or chills no headache or dizziness no chest pain no shortness of breath no cough no vomiting no abdominal pain no diarrhea no blood in the stools no burning with urination no frequency or urgency and no hematuria. Consultation from neurology psychiatry and gastroenterology were reviewed in details Recommendation from psychiatry was to discontinue trazodone at this time, and to try to work with outpatient psychiatry to decrease other medications gradually. Recommendation from neurology was to discuss with outpatient neurology to decrease dose of Topamax Recommendation from gastroenterology was to start Protonix 40 mg by mouth daily, and follow-up as outpatient for possible EGD At this time will discharge patient to home, prescriptions for protonic send NicoDerm patches were given to patient. Follow up with her primary care physician Dr. Singh, follow up with outpatient neurology and psychiatry and follow-up was gastroenterology Dr. Kearney for possible EGD. Past Medical History Past Medical History: Hearing Disorder / Deafness, Seizure Disorder Additional Past Medical History / Comment(s): EPILEPSY, LAST SEIZURE 09/2015. Neuropathy HANDS. History of Any Multi-Drug Resistant Organisms: None Reported Past Surgical History: Appendectomy, Hysterectomy, Orthopedic Surgery Additional Past Surgical History / Comment(s): RADIAL NERVE SURG [place]. Past Anesthesia/Blood Transfusion Reactions: No Reported Reaction Past Psychological History: Anxiety, Bipolar, Depression Smoking Status: Current every day smoker Past Alcohol Use History: Occasional Past Drug Use History: Marijuana - Past Family History Father Family Medical History: Coronary Artery Disease (CAD) Medications and Allergies Home Medications Medication Instructions Recorded Confirmed Type Topiramate [Topamax] 400 mg PO DAILY 05/06/14 06/24/20 History ALPRAZolam [Xanax] 1 mg PO QID 11/26/15 06/24/20 History levETIRAcetam [Keppra] 1,500 mg PO BID 11/26/15 06/24/20 History Ziprasidone [Geodon] 160 mg PO HS 12/16/15 06/24/20 History DULoxetine HCL [Cymbalta] 30 mg PO DAILY 06/24/20 06/24/20 History Mirtazapine [Remeron] 30 mg PO HS 06/24/20 06/24/20 History Topiramate [Topamax] 200 mg PO HS 06/24/20 06/24/20 History lamoTRIgine [LaMICtal] 200 mg PO BID 06/24/20 06/24/20 History Nicotine 21Mg/24Hr Patch [Habitrol] 1 patch TRANSDERM DAILY patch 06/26/20 Rx Pantoprazole [Protonix] 40 mg PO DAILY 30 Days #30 06/26/20 Rx tablet. Allergies Allergy/AdvReac Type Severity Reaction Status Date / Time No Known Allergies Allergy Verified 06/24/20 14:26 Physical Exam Vitals: Vital Signs Temp Pulse Pulse Resp BP BP Pulse Ox 06/26/20 11:40 77 06/26/20 11:30 76 06/26/20 07:50 98.2 F 72 16 121/48 95 06/26/20 03:06 97.8 F 72 16 106/63 95 06/25/20 20:03 97.9 F 68 18 100/64 94 L 06/25/20 19:36 74 06/25/20 19:25 70 06/25/20 17:03 75 16 97/54 93 L 06/25/20 15:33 68 06/25/20 15:23 66 99 06/25/20 14:49 98 F 65 16 86/43 97 Intake and Output 06/25/20 06/26/20 06/26/20 22:59 06:59 14:59 Intake Total 200 Balance 200 Intake: Other 200 Other: Voiding Method Toilet Toilet # Voids 1 Results CBC & Chem 7: 06/25/20 08:16 06/25/20 08:16 Thrombosis Risk Factor Assmnt - Choose All That Apply Each Factor Represents 1 point: Age 41-60 years Other Risk Factors: No Other congenital or acquired thrombophilia - If yes, enter type in comment: No Thrombosis Risk Factor Assessment Total Risk Factor Score: 1 Thrombosis Risk Factor Assessment Level: Low Risk
[2020-06-26] MEDS: PROCHLORPERAZINE 10 MG TAB PO PRN (13:03)
== END 2020-06-26 13:29 | disposition home or self-care (01) ==
LOC: EC 13:02 → 1SOBS 16:37
PROVIDERS: ADMIT Internal Medicine; ATTEND Internal Medicine
DX: G93.40 Encephalopathy, unspecified (principal); R11.2 Nausea with vomiting, unspecified; R53.1 Weakness; R63.0 Anorexia; R51 Headache; R19.7 Diarrhea, unspecified; G40.409 Other generalized epilepsy and epileptic syndromes, not intractable, without status epilepticus; F31.9 Bipolar disorder, unspecified; F41.9 Anxiety disorder, unspecified; H91.90 Unspecified hearing loss, unspecified ear; G62.9 Polyneuropathy, unspecified; F12.90 Cannabis use, unspecified, uncomplicated; F17.210 Nicotine dependence, cigarettes, uncomplicated; Z71.6 Tobacco abuse counseling; Z86.711 Personal history of pulmonary embolism; Z79.899 Other long term (current) drug therapy; Z90.49 Acquired absence of other specified parts of digestive tract; Z90.710 Acquired absence of both cervix and uterus; Z98.890 Other specified postprocedural states; Z86.74 Personal history of sudden cardiac arrest; Z82.49 Family history of ischemic heart disease and other diseases of the circulatory system; Z81.8 Family history of other mental and behavioral disorders; Z81.1 Family history of alcohol abuse and dependence
CPT/HCPCS: 96361 ×2; 96376 ×2; 96374; 99285; 36415; 94640 ×3; 93005; 80053; 80048; 82140 ×2; 82150; 82550; 83690; 84484; 85025 ×2; 85610; 85730; 81003; 81025; 80306; 83520; 80329; 80320; 71046; 76700; 70450; G0378 ×3; S4990 ×3; S0183 ×2; C9113 ×3

== ENCOUNTER 2020-06-29 13:12 | Observation (INO) | payer BC, OTHER ==
--- NOTE | 2020-06-29 14:07 | ED ---
General Adult HPI - General Chief complaint: Nausea/Vomiting/Diarrhea Stated complaint: Nausea and gagging Time Seen by Provider: 06/29/20 13:20 Source: patient, family, RN notes reviewed, old records reviewed Mode of arrival: ambulatory Limitations: no limitations - History of Present Illness Initial comments: This is a 44-year-old female who presents emergency department stating that she was recently discharged from the hospital after a three-day stay for nausea and vomiting. Patient states that she's been home she's only eaten very little but gags often when she tries to eat or even thinking of bleeding. Patient states she had a difficult time taking her meds today because they were making her gag. Patient denies any abdominal pain. Patient denies any fever chills. Patient denies any difficulty breathing shortness of breath. Patient denies any chest pain palpitations. Patient denies any diarrhea. Patient states she does have very liquidy bowel movements but not very much. Patient states last night she had some coleslaw and a chicken thigh. As I was leaving the room the patient requested food because she was hungry. - Related Data Home Medications Medication Instructions Recorded Confirmed Topiramate [Topamax] 400 mg PO DAILY 05/06/14 06/29/20 ALPRAZolam [Xanax] 1 mg PO QID 11/26/15 06/29/20 levETIRAcetam [Keppra] 1,500 mg PO BID 11/26/15 06/29/20 Ziprasidone [Geodon] 160 mg PO HS 12/16/15 06/29/20 DULoxetine HCL [Cymbalta] 30 mg PO DAILY 06/24/20 06/29/20 Mirtazapine [Remeron] 30 mg PO HS 06/24/20 06/29/20 Topiramate [Topamax] 200 mg PO HS 06/24/20 06/29/20 lamoTRIgine [LaMICtal] 200 mg PO BID 06/24/20 06/29/20 Previous Rx's Medication Instructions Recorded Nicotine 21Mg/24Hr Patch [Habitrol] 1 patch TRANSDERM DAILY patch 06/26/20 Pantoprazole [Protonix] 40 mg PO DAILY 30 Days #30 06/26/20 tablet. Allergies Allergy/AdvReac Type Severity Reaction Status Date / Time No Known Allergies Allergy Verified 06/29/20 14:02 Review of Systems ROS Statement: Those systems with pertinent positive or pertinent negative responses have been documented in the HPI. ROS Other: All systems not noted in ROS Statement are negative. Past Medical History Past Medical History: Hearing Disorder / Deafness, Seizure Disorder Additional Past Medical History / Comment(s): EPILEPSY, LAST SEIZURE 09/2015. Neuropathy HANDS. History of Any Multi-Drug Resistant Organisms: None Reported Past Surgical History: Appendectomy, Hysterectomy, Orthopedic Surgery Additional Past Surgical History / Comment(s): RADIAL NERVE SURG [place]ADWICK. Past Anesthesia/Blood Transfusion Reactions: No Reported Reaction Past Psychological History: Anxiety, Bipolar, Depression Smoking Status: Current every day smoker Past Alcohol Use History: Occasional Past Drug Use History: Marijuana - Past Family History Father Family Medical History: Coronary Artery Disease (CAD) General Exam - General Exam Comments Initial Comments: GENERAL: Patient is well-developed and well-nourished. Patient is nontoxic and well- hydrated and is in no acute distress. ENT: Neck is soft and supple. No significant lymphadenopathy is noted. Oropharynx is clear. Moist mucous membranes. Neck has full range of motion without eliciting any pain. EYES: The sclera were anicteric and conjunctiva were pink and moist. Extraocular movements were intact and pupils were equal round and reactive to light. Eyelids were unremarkable. PULMONARY: Unlabored respirations. Good breath sounds bilaterally. No audible rales rhonchi or wheezing was noted. CARDIOVASCULAR: There is a regular rate and rhythm without any murmurs gallops or rubs. ABDOMEN: Soft and nontender with normal bowel sounds. No palpable organomegaly was noted. There is no palpable pulsatile mass. SKIN: Skin is clear with no lesions or rashes and otherwise unremarkable. NEUROLOGIC: Patient is alert and oriented x3. Cranial nerves II through XII are grossly intact. Motor and sensory are also intact. Normal speech, volume and content. Symmetrical smile. MUSCULOSKELETAL: Normal extremities with adequate strength and full range of motion. No lower extremity swelling or edema. No calf tenderness. LYMPHATICS: No significant lymphadenopathy is noted PSYCHIATRIC: Normal psychiatric evaluation. Limitations: no limitations Course Vital Signs 06/29/20 13:20 Temperature 98.9 F Pulse Rate 84 Respiratory 18 Rate Blood Pressure 127/73 O2 Sat by Pulse 97 Oximetry Medical Decision Making - Lab Data Result diagrams: 06/29/20 14:07 Lab Results 06/29/20 06/29/20 Range/Units 14:07 14:07 WBC 9.5 (3.8-10.6) k/uL RBC 4.73 (3.80-5.40) m/uL Hgb 15.5 (11.4-16.0) gm/dL Hct 48.3 H (34.0-46.0) % MCV 102.1 H (80.0-100.0) fL MCH 32.7 (25.0-35.0) pg MCHC 32.0 (31.0-37.0) g/dL RDW 12.2 (11.5-15.5) % Plt Count 303 (150-450) k/uL Neutrophils % 62 % Lymphocytes % 32 % Monocytes % 3 % Eosinophils % 1 % Basophils % 1 % Neutrophils # 5.9 (1.3-7.7) k/uL Lymphocytes # 3.1 (1.0-4.8) k/uL Monocytes # 0.3 (0-1.0) k/uL Eosinophils # 0.1 (0-0.7) k/uL Basophils # 0.1 (0-0.2) k/uL Urine Color Yellow Urine Appearance Cloudy H (Clear) Urine pH 5.0 (5.0-8.0) Ur Specific [place] 1.013 (1.001-1.035) Urine Protein Negative (Negative) Urine Glucose (UA) Negative (Negative) Urine Ketones Negative (Negative) Urine Blood Negative (Negative) Urine Nitrite Negative (Negative) Urine Bilirubin Negative (Negative) Urine Urobilinogen <2.0 (<2.0) mg/dL Ur Leukocyte Esterase Negative (Negative) Urine WBC 1 (0-5) /hpf Ur Squamous Epith Cells 4 (0-4) /hpf Urine Bacteria Rare H (None) /hpf Urine Mucus Rare H (None) /hpf Disposition Clinical Impression: Acute vomiting Disposition: ADMITTED IP TO THIS HOSP Referrals: Starr Singh MD [Primary Care Provider] - 1-2 days Time of Disposition: 14:50
[2020-06-29 14:23] LABS: Basophils # (A) 0.1 k/uL (0-0.2); Basophils % (A) 1 %; Eosinophils # (A) 0.1 k/uL (0-0.7); Eosinophils % (A) 1 %; HCT 48.3 % (34.0-46.0); HGB 15.5 gm/dL (11.4-16.0); Lymphocytes # (A) 3.1 k/uL (1.0-4.8); Lymphocytes % (A) 32 %; MCH 32.7 pg (25.0-35.0); MCV 102.1 fL (80.0-100.0); Mean Platelet Volume 6.8; Monocytes # (A) 0.3 k/uL (0-1.0); Monocytes % (A) 3 %; Neutrophils # (A) 5.9 k/uL (1.3-7.7); Neutrophils % (A) 62 %; Platelet Count 303 k/uL (150-450); RBC 4.73 m/uL (3.80-5.40); RDW 12.2 % (11.5-15.5); WBC 9.5 k/uL (3.8-10.6)
[2020-06-29 14:26] LABS: Appearance,Urine Cloudy (Clear); Bacteria,Urine Rare /hpf; Bilirubin,Urine Negative (Negative); Blood,Urine Negative (Negative); Color,Urine Yellow; Glucose,Urine (UA) Negative (Negative); Ketones,Urine Negative (Negative); Leukocyte Esterase,Urine Negative (Negative); Mucus,Urine Rare /hpf; Nitrite,Urine Negative (Negative); Protein,Urine Negative (Negative); Specific Gravity,Urine 1.013 (1.001-1.035); Squamous Epithelial Cell,Urine 4 /hpf (0-4); Urobilinogen,Urine <2.0 mg/dL (<2.0); WBC,Urine 1 /hpf (0-5)
[2020-06-29 14:40] LABS: ALT 11 U/L (4-34); AST 23 U/L (14-36); African American GFR (CKD) >90 (>60 ml/min/1.73 sqM); Albumin 4.6 g/dL (3.5-5.0); Alkaline Phosphatase 72 U/L (38-126); Amylase 44 U/L (30-110); Anion Gap 7 mmol/L; Blood Urea Nitrogen 8 mg/dL (7-17); Calcium 9.5 mg/dL (8.4-10.2); Carbon Dioxide 19 mmol/L (22-30); Chloride 114 mmol/L (98-107); Glucose 86 mg/dL (74-99); Lipase 105 U/L (23-300); Non-African American GFR(CKD) >90 (>60 ml/min/1.73 sqM); Sodium 140 mmol/L (137-145); Total Bilirubin 0.5 mg/dL (0.2-1.3); Total Protein 7.9 g/dL (6.3-8.2)
[2020-06-29 14:51] LABS: Potassium 4.6 mmol/L (3.5-5.1)
[2020-06-29] MEDS ORDERED: SODIUM CHLORIDE 0.9% 1,000 ML IV ONE (14:51)
[2020-06-29] MEDS: PROCHLORPERAZINE 10 MG TAB PO PRN (18:09)
[2020-06-29] MEDS: PANTOPRAZOLE 40 MG TABLET PO SCH (18:09)
[2020-06-29] MEDS: ALPRAZolam 1 MG TAB PO SCH ×2 (18:09→21:43)
[2020-06-29] MEDS: lamoTRIgine 100 MG TAB PO SCH (20:21)
[2020-06-29] MEDS ORDERED: ZIPRASIDONE 80 MG CAP PO SCH (21:00)
[2020-06-29] MEDS ORDERED: MIRTAZAPINE 15 MG TAB PO SCH (21:00)
[2020-06-29] MEDS ORDERED: TOPIRAMATE 100 MG TAB PO SCH (21:00)
[2020-06-30 08:34] VITALS: BP 115/67; PULSE 71; RESP 16; TEMP 98
[2020-06-30] MEDS: lamoTRIgine 100 MG TAB PO SCH (08:39)
[2020-06-30] MEDS: ALPRAZolam 1 MG TAB PO SCH ×3 (08:39→12:33)
[2020-06-30] MEDS: PANTOPRAZOLE 40 MG TABLET PO SCH (08:40)
[2020-06-30] MEDS ORDERED: NICOTINE 21MG/24HR PATCH TRANSDERM SCH (09:00)
[2020-06-30] MEDS ORDERED: TOPIRAMATE 100 MG TAB PO SCH (09:00)
[2020-06-30] MEDS ORDERED: DULoxetine HCL 30 MG CAPSULE.DR PO SCH (09:00)
[2020-06-30] MEDS: PROCHLORPERAZINE 10 MG TAB PO PRN (09:18)
--- NOTE | 2020-06-30 12:40 | P.HPIM ---
History of Present Illness H&P Date: 06/30/20 Chief Complaint: nausea and vomitting This is a 44 year old female patient of Dr. Singh. Patient presented with complaints of Nausea and vomiting. Patient reports that this has been occurring over the past month after eating or taking her medication. patient was recently admitted for similar issue in which she was evaluated by GI services and recommended outpatient EGD. abdominal ultrasound completed at that time. Patient has a past medical history of seizure disorder, bipolar and anxiety. During previous hospital stay patient was evaluated by pysch and neurology. Amylase and lipase within normal limits. Patient has been tolerating diet. Patient was discharged on Protonix in which she states she has been taking. Discussed case with GI next practitioner Kumar plan is to follow-up outpatient with possible EGD. Patient also written prescription for Compazine per GI services and may be discharged home. UA negative. Labs unremarkable. Vitals within normal limits. Patient is aware of plan in regards to GI services and is eager to go home. At this time patient denies any chest pain or shortness breath. Patient denies nausea vomiting or diarrhea. Patient denies any urinary burning or frequency. Review of Systems Please refer to HPI otherwise unremarkable Past Medical History Past Medical History: Hearing Disorder / Deafness, Neurologic Disorder, Seizure Disorder Additional Past Medical History / Comment(s): EPILEPSY, LAST SEIZURE 12/02/2018, Neuropathy arms & hands, forgetful History of Any Multi-Drug Resistant Organisms: None Reported Past Surgical History: Appendectomy, Hysterectomy, Orthopedic Surgery Additional Past Surgical History / Comment(s): RADIAL NERVE SURG [place]ADWICK. Past Anesthesia/Blood Transfusion Reactions: No Reported Reaction Past Psychological History: Anxiety, Bipolar, Depression Additional Psychological History / Comment(s): ADM 11/2015 FOR RX OVERDOSE. Smoking Status: Current every day smoker Past Alcohol Use History: Occasional Additional Past Alcohol Use History / Comment(s): SMOKER SINCE AGE 11, 2.5 PPD. Past Drug Use History: Marijuana Additional Drug Use History / Comment(s): SMOKES "ABOUT 1 JOINT A DAY," PER PATIENT. - Past Family History Father Family Medical History: Coronary Artery Disease (CAD) Additional Family Medical History / Comment(s): quadruple cabg, bipolar, ptsd Sister(s) Additional Family Medical History / Comment(s): ETOH bipolar Medications and Allergies Home Medications Medication Instructions Recorded Confirmed Type Topiramate [Topamax] 400 mg PO DAILY 05/06/14 06/29/20 History ALPRAZolam [Xanax] 1 mg PO QID 11/26/15 06/29/20 History levETIRAcetam [Keppra] 1,500 mg PO BID 11/26/15 06/29/20 History Ziprasidone [Geodon] 160 mg PO HS 12/16/15 06/29/20 History DULoxetine HCL [Cymbalta] 30 mg PO DAILY 06/24/20 06/29/20 History Mirtazapine [Remeron] 30 mg PO HS 06/24/20 06/29/20 History Topiramate [Topamax] 200 mg PO HS 06/24/20 06/29/20 History lamoTRIgine [LaMICtal] 200 mg PO BID 06/24/20 06/29/20 History Nicotine 21Mg/24Hr Patch [Habitrol] 1 patch TRANSDERM DAILY patch 06/26/20 06/29/20 Rx Pantoprazole [Protonix] 40 mg PO DAILY 30 Days #30 06/26/20 06/29/20 Rx tablet. Prochlorperazine [Compazine] 10 mg PO Q8HR PRN #90 tab 06/30/20 Rx Allergies Allergy/AdvReac Type Severity Reaction Status Date / Time No Known Allergies Allergy Verified 06/29/20 14:02 Physical Exam Vitals: Vital Signs Temp Pulse Pulse Resp BP BP Pulse Ox 06/30/20 08:30 98 F 71 16 115/67 96 06/30/20 02:55 98.4 F 83 15 98/57 92 L 06/29/20 19:30 68 16 06/29/20 19:10 97.7 F 68 16 101/65 95 06/29/20 15:38 98.5 F 70 16 90/62 96 06/29/20 14:58 97.9 F 79 18 133/78 98 06/29/20 13:20 98.9 F 84 18 127/73 97 Intake and Output 06/29/20 06/30/20 06/30/20 22:59 06:59 14:59 Other: Voiding Method Toilet Toilet Toilet # Voids 1 1 Weight 64.682 kg Head normocephalic Neck supple Lungs clear to auscultation bilaterally no wheezing or crackles Heart regular rate and rhythm S1-S2, no rub or gallop Abdomen is soft nontender nondistended positive bowel sounds no hepatosplenomegaly Extremities no edema Neuro alert and orientated to 3 Results CBC & Chem 7: 06/29/20 14:07 06/29/20 14:07 Labs: Abnormal Lab Results - Last 24 Hours (Table) 06/29/20 06/29/20 06/29/20 Range/Units 14:07 14:07 14:07 Hct 48.3 H (34.0-46.0) % MCV 102.1 H (80.0-100.0) fL Chloride 114 H (98-107) mmol/L Carbon Dioxide 19 L (22-30) mmol/L Urine Appearance Cloudy H (Clear) Urine Bacteria Rare H (None) /hpf Urine Mucus Rare H (None) /hpf Thrombosis Risk Factor Assmnt - Choose All That Apply Any of the Below Risk Factors Present?: Yes Each Factor Represents 1 point: Age 41-60 years, Obesity (BMI >25) Other Risk Factors: No Other congenital or acquired thrombophilia - If yes, enter type in comment: No Thrombosis Risk Factor Assessment Total Risk Factor Score: 2 Thrombosis Risk Factor Assessment Level: Low Risk Assessment and Plan Assessment: 1. Nausea. Patient was recently admitted and had abdominal ultrasound completed at that time which was unremarkable. Patient was evaluated again by GI service is recommending outpatient EGD. Will discharge on Compazine and Protonix. Amylase and lipase within normal limits. 2. Seizure disorder. Patient was evaluated by neurology services during previous stay 3. History of bipolar. Patient was evaluated by psychiatry services during previous admission. Medications were adjusted during previous day 4. History of nicotine dependence Time with Patient: Greater than 30 (Greater than 60% of the total time spent in counseling and coordination of care. I performed an examination of the patient and discussed their management with the Nurse Practitioner. I have reviewed the Nurse Practitioner's notes and agree with the documented findings and plan of care)
--- NOTE | 2020-06-30 12:43 | P.DS ---
Providers Date of admission: 06/29/20 14:51 Expected date of discharge: 06/30/20 Attending physician: Juan Antonio Villa Consults: 06/29/20 14:51 Consult Physician Urgent Consulting Provider: Yvrose Kearney Consult Reason/Comments: Nausea severe Do you want consulting provider notified?: Yes Primary care physician: Starr Singh Hospital Course: Discharge diagnosis 1. Nausea. Patient was recently admitted and had abdominal ultrasound completed at that time which was unremarkable. Patient was evaluated again by GI service is recommending outpatient EGD. Will discharge on Compazine and Protonix. Amylase and lipase within normal limits. 2. Seizure disorder. Patient was evaluated by neurology services during previous stay 3. History of bipolar. Patient was evaluated by psychiatry services during previous admission. Medications were adjusted during previous day 4. History of nicotine dependence Hospital course This is a 44 year old female patient of Dr. Singh. Patient presented with complaints of Nausea and vomiting. Patient reports that this has been occurring over the past month after eating or taking her medication. patient was recently admitted for similar issue in which she was evaluated by GI services and recommended outpatient EGD. abdominal ultrasound completed at that time. Patient has a past medical history of seizure disorder, bipolar and anxiety. During previous hospital stay patient was evaluated by pysch and neurology. Amylase and lipase within normal limits. Patient has been tolerating diet. Patient was discharged on Protonix in which she states she has been taking. Discussed case with GI next practitioner Kumar plan is to follow-up outpatient with possible EGD. Patient also written prescription for Compazine per GI services and may be discharged home. UA negative. Labs unremarkable. Vitals within normal limits. Patient is aware of plan in regards to GI services and is eager to go home. At this time patient denies any chest pain or shortness breath. Patient denies nausea vomiting or diarrhea. Patient denies any urinary burning or frequency. Discussed case with GI nurse practitioner Kumar. Patient has been cleared for discharge. Patient will follow-up outpatient. Emphysema prescription given per GI services. Patient has been eating multiple quitting in the imaged packets at bedside tolerating diet. Patient is alert and oriented 3. No further complaints at this time. Patient denies nausea vomiting. Patient denies diarrhea or abdominal cramping. Patient denies any chest pain or shortness breath. Patient denies any urinary burning or frequency I performed an examination of the patient and discussed their management with the Nurse Practitioner. I have reviewed the Nurse Practitioner's notes and agree with the documented findings and plan of care Patient Condition at Discharge: Stable Plan - Discharge Summary Discharge Rx Participant: No New Discharge Prescriptions: New Prochlorperazine [Compazine] 10 mg PO Q8HR PRN #90 tab PRN Reason: Nausea And Vomiting Continue Topiramate [Topamax] 400 mg PO DAILY levETIRAcetam [Keppra] 1,500 mg PO BID ALPRAZolam [Xanax] 1 mg PO QID Ziprasidone [Geodon] 160 mg PO HS Mirtazapine [Remeron] 30 mg PO HS DULoxetine HCL [Cymbalta] 30 mg PO DAILY lamoTRIgine [LaMICtal] 200 mg PO BID Topiramate [Topamax] 200 mg PO HS Nicotine 21Mg/24Hr Patch [Habitrol] 1 patch TRANSDERM DAILY patch Pantoprazole [Protonix] 40 mg PO DAILY 30 Days #30 tablet.dr Discharge Medication List Topiramate [Topamax] 400 mg PO DAILY 05/06/14 [History] ALPRAZolam [Xanax] 1 mg PO QID 11/26/15 [History] levETIRAcetam [Keppra] 1,500 mg PO BID 11/26/15 [History] Ziprasidone [Geodon] 160 mg PO HS 12/16/15 [History] DULoxetine HCL [Cymbalta] 30 mg PO DAILY 06/24/20 [History] Mirtazapine [Remeron] 30 mg PO HS 06/24/20 [History] Topiramate [Topamax] 200 mg PO HS 06/24/20 [History] lamoTRIgine [LaMICtal] 200 mg PO BID 06/24/20 [History] Nicotine 21Mg/24Hr Patch [Habitrol] 1 patch TRANSDERM DAILY patch 06/26/20 [Rx] Pantoprazole [Protonix] 40 mg PO DAILY 30 Days #30 tablet. 06/26/20 [Rx] Prochlorperazine [Compazine] 10 mg PO Q8HR PRN #90 tab 06/30/20 [Rx] Follow up Appointment(s)/Referral(s): Starr Singh MD [Primary Care Provider] - 1-2 days Royer Wyman MD [STAFF PHYSICIAN] - 07/09/20 9:30 am (Dr. Mirna Ro, this was the soonest available appointment for a follow up regarding hospitalizaiton. If any questions please contct office. ) Activity/Diet/Wound Care/Special Instructions: diet as tolerated activity as tolerated Discharge Disposition: HOME SELF-CARE
== END 2020-06-30 13:52 | disposition home or self-care (01) ==
LOC: EC 13:12 → 1SOBS 14:51
PROVIDERS: ADMIT Internal Medicine; ATTEND Internal Medicine
DX: R11.2 Nausea with vomiting, unspecified (principal); R19.7 Diarrhea, unspecified; G40.909 Epilepsy, unspecified, not intractable, without status epilepticus; H91.90 Unspecified hearing loss, unspecified ear; G62.9 Polyneuropathy, unspecified; F41.9 Anxiety disorder, unspecified; F31.9 Bipolar disorder, unspecified; E66.9 Obesity, unspecified; F17.210 Nicotine dependence, cigarettes, uncomplicated; Z79.899 Other long term (current) drug therapy; Z90.49 Acquired absence of other specified parts of digestive tract; Z90.710 Acquired absence of both cervix and uterus; Z98.890 Other specified postprocedural states; Z86.69 Personal history of other diseases of the nervous system and sense organs; Z68.25 Body mass index [BMI] 25.0-25.9, adult; Z82.49 Family history of ischemic heart disease and other diseases of the circulatory system; Z81.8 Family history of other mental and behavioral disorders; Z81.1 Family history of alcohol abuse and dependence
CPT/HCPCS: 96361 ×2; 96360; 99285; 36415; 80053; 82150; 83690; 85025; 81001; G0378 ×2; S4990; S0183 ×2

== ENCOUNTER → 2020-08-06 | Outpatient (CLI) | payer BC, OTHER ==
--- NOTE | 2020-08-06 11:42 | FL ---
EXAMINATION TYPE: FL barium swallow DATE OF EXAM: 08/06/2020 CLINICAL HISTORY: Nausea and dysphagia. TECHNIQUE: A double contrast esophagram is performed utilizing air and barium. A total of 15 second s of fluoroscopic time was utilized during procedure and 46 images saved to PACS. COMPARISON: None FINDINGS: The esophagus shows satisfactory motility and emptying into the stomach. Small sliding-type hiatal hernia. No fixed hiatal hernia. No stricture or suspicious intraluminal mass. No significant gastroesophageal reflux was seen during real time performance of this study. IMPRESSION: Small sliding-type hiatal hernia seen during this study otherwise unremarkable.
== END | disposition home or self-care (01) ==
LOC: RADUSWWP 10:56
PROVIDERS: ATTEND Otolaryngology
DX: K44.9 Diaphragmatic hernia without obstruction or gangrene (principal); R13.10 Dysphagia, unspecified
CPT/HCPCS: 74220

== ENCOUNTER 2021-02-24 08:02 | Day surgery (SDC) | payer BC, OTHER ==
[2021-02-22 12:23] VITALS: BMI 24.4
[~2021-02-24 08:02] MED LIST: LACTATED RINGERS 1,000 ML IV SCH; LIDOCAINE 1% (10MG/ML) FOR IV START INTRADERMA PRN
[2021-02-24 08:26] VITALS: RESP 16; TEMP 98.5
[2021-02-24] MEDS ORDERED: PROPOFOL 10 MG/ML 20 ML VIAL IV ONE (09:25)
[2021-02-24] MEDS ORDERED: LIDOCAINE 1% INJ 10MG/ML (20 ML MDV) ONE (09:25)
[2021-02-24] MEDS ORDERED: fentaNYL (PF) 50 MCG/ML 2 ML AMP ONE (09:25)
[2021-02-24] MEDS ORDERED: MIDAZOLAM 2 MG/2 ML VIAL ONE (09:25)
--- NOTE | 2021-02-24 10:05 | P.PCN ---
Date of Procedure: 02/24/21 Description of Procedure: Brief history: Patient is a 45-year-old female presenting for outpatient EGD and colonoscopy for evaluation of GERD, nausea, change in bowel habits. The patient reports long-standing history of GERD on proton therapy. She reports frequent nausea. Patient previously had colonoscopy in 2016 at which time she had altered bowel function and diarrhea. She reports over the past year she has had frequent loose stool with no formed bowel movements. She has a family history of colon cancer. Procedure performed: Esophagogastroduodenoscopy with biopsy Colonoscopy with biopsy Estimated blood loss: Minimal. Preoperative diagnosis: GERD, nausea, change in bowel habits, diarrhea, family history of colon cancer, last colonoscopy 2015 Anesthesia: MAC Procedure: After informed consent was obtained from the patient was brought into the endoscopy unit and IV sedation was administered by anesthesia under continuous monitoring. Initially upper endoscopy was done. The Olympus GF 190 video endoscope was inserted into the mouth and esophagus intubated without any difficulty and was gradually advanced into the stomach and duodenum and carefully examined. The bulb and second part of the duodenum appeared normal, with biopsies taken. The scope was then withdrawn into the stomach adequately insufflated with air and upon careful examination the antrum and body, cardia and fundus appeared normal, with some mild punctate erythema suggestive of mild gastritis biopsies of the antrum and body taken. The scope was then withdrawn into the esophagus. The GE junction was located at 40 cm to the incisors. It appeared regular with no erythema erosions or ulcerations. Rest of the esophagus appeared normal, with lower esophageal biopsies taken. Patient tolerated the procedure well. At this time the patient continued to remain sedation. Initial digital rectal examination was normal. Olympus CF 190 video colonoscope was then inserted into the rectum and gradually advanced to the cecum without any difficulty. Careful examination was performed as the scope was gradually being withdrawn. The prep was excellent. The cecum, ascending colon, transverse colon, descending colon, sigmoid colon and rectum appeared normal, with random biopsies of the right and left colon and a normal-appearing terminal ileum given altered bowel function and diarrhea. Retroflexion was performed in the rectum and no lesions were noted, low-grade internal hemorrhoids. Patient tolerated the procedure well. Impression: 1. Mild gastritis. Biopsies of the duodenum, antrum body and lower esophagus. 2. Normal-appearing colon from rectum to cecum and normal-appearing terminal ileum with random biopsies taken of the terminal ileum, right and left colon. Internal hemorrhoids. Recommendations: Findings of this examination were discussed with the patient as well as her family. Okay to resume diet. Okay to resume medications. Await pathology from biopsies. Recommend repeat colonoscopy in 5 years family history of colon cancer.
[2021-02-24 10:28] VITALS: BP 120/78; PULSE 70
== END 2021-02-24 10:52 | disposition home or self-care (01) ==
LOC: ORWHC2ENDO 08:02
PROVIDERS: ATTEND Internal Medicine
DX: K21.00 Gastro-esophageal reflux disease with esophagitis, without bleeding (principal); Z80.0 Family history of malignant neoplasm of digestive organs; K29.80 Duodenitis without bleeding; K52.9 Noninfective gastroenteritis and colitis, unspecified; K29.50 Unspecified chronic gastritis without bleeding; F41.9 Anxiety disorder, unspecified; F31.9 Bipolar disorder, unspecified; Z79.899 Other long term (current) drug therapy; F17.210 Nicotine dependence, cigarettes, uncomplicated; G62.9 Polyneuropathy, unspecified
CPT/HCPCS: 88305; 45380; 43239; J2250; J2001; J3010; J2704

== ENCOUNTER → 2022-05-23 | Outpatient (CLI) | payer BC, OTHER ==
--- NOTE | 2022-05-24 19:22 | MM ---
Reason for Exam: Screening (asymptomatic). Last mammogram was performed 9 year(s) and 4 month(s) ago. Patient History: Menarche at age 9. Patient has no children. Left ovary removed at age 36. Right ovary removed at age 36. Hysterectomy at age 36. Postmenopausal. Risk Values: Talisha 5 year model risk: 1.1%. NCI Lifetime model risk: 11.3%. Prior Study Comparison: 02/03/2013 Bilateral Diagnostic Mammogram, [facility]. Tissue Density: There are scattered fibroglandular densities. Findings: Analyzed By CAD. No significant mass, suspicious microcalcification, or other discrete abnormality is seen. Overall Assessment: Negative, BI-RAD 1 Management: Screening Mammogram of both breasts in 1 year. 1. Patient should continue monthly self breast exams. 2. A clinical breast exam by your physician is recommended on an annual basis. 3. This exam should not preclude additional follow-up of suspicious palpable abnormalities. Electronically signed and approved by: Karin Salomon M.D. Radiologist
== END | disposition home or self-care (01) ==
LOC: RADMAMWWP 14:10
PROVIDERS: ATTEND Family Medicine
DX: Z12.31 Encounter for screening mammogram for malignant neoplasm of breast (principal); Z78.0 Asymptomatic menopausal state
CPT/HCPCS: 77067

== ENCOUNTER 2022-10-11 15:41 | Inpatient (IN) | payer BC, MEDICAID ==
--- NOTE | 2022-10-11 21:00 | ED ---
Psych HPI - General Chief Complaint: Psychiatric Symptoms Stated Complaint: EPS eval Time Seen by Provider: 10/11/22 18:47 Source: patient, RN notes reviewed Mode of arrival: ambulatory - History of Present Illness Initial Comments: 46-year-old female who presents with complaints of feeling depressed and suicidal no particular plan at this time she had recently been admitted to [facility] for over a week she was discharged just before [place] she is feeling as if her medications are not working she does feel depressed and suicidal but she states she does stop herself or harming herself MD Complaint: suicidal ideation, feels depressed - Related Data Home Medications Medication Instructions Recorded Confirmed Topiramate [Topamax] 200 mg PO HS 05/06/14 10/12/22 levETIRAcetam [Keppra] 1,500 mg PO BID 11/26/15 10/12/22 Topiramate [Topamax] 400 mg PO DAILY 06/24/20 10/12/22 Albuterol Inhaler [Ventolin Hfa 2 puff INHALATION RT-QID PRN 10/11/22 10/12/22 Inhaler] Amitriptyline HCl [Elavil] 25 mg PO TID 10/11/22 10/12/22 Fluticasone/Umeclidin/Vilanter 1 puff INHALATION RT-DAILY 10/11/22 10/12/22 [Trelegy Ellipta 100-62.5-25] Mirtazapine 45 mg PO HS 10/11/22 10/12/22 Nicotine 21Mg/24Hr Patch [Habitrol] 1 patch TRANSDERM DAILY PRN 10/11/22 10/12/22 Perphenazine [Trilafon] 4 mg PO TID 10/11/22 10/12/22 clonazePAM [KlonoPIN] 1 mg PO QID 10/11/22 10/12/22 hydrOXYzine pamoate 50 mg PO TID 10/11/22 10/12/22 Allergies Allergy/AdvReac Type Severity Reaction Status Date / Time No Known Allergies Allergy Verified 10/12/22 01:58 Review of Systems ROS Statement: Those systems with pertinent positive or pertinent negative responses have been documented in the HPI. ROS Other: All systems not noted in ROS Statement are negative. Past Medical History Past Medical History: GERD/Reflux, Hearing Disorder / Deafness, Neurologic Disorder, Seizure Disorder Additional Past Medical History / Comment(s): having nausea and diarrhea, EPILEPSY, LAST SEIZURE 12/02/2018, Neuropathy arms & hands, memory issues History of Any Multi-Drug Resistant Organisms: None Reported Past Surgical History: Appendectomy, Hysterectomy, Orthopedic Surgery Additional Past Surgical History / Comment(s): RADIAL NERVE SURG [place]. Past Anesthesia/Blood Transfusion Reactions: No Reported Reaction Past Psychological History: Anxiety, Bipolar, Depression Smoking Status: Current every day smoker Past Alcohol Use History: None Reported Past Drug Use History: None Reported - Past Family History Father Family Medical History: Coronary Artery Disease (CAD) Additional Family Medical History / Comment(s): quadruple cabg, bipolar, ptsd Sister(s) Additional Family Medical History / Comment(s): ETOH bipolar General Exam - General Exam Comments Initial Comments: This is a well-developed well-nourished awake alert oriented 4 female Limitations: no limitations General appearance: alert, in no apparent distress Head exam: Present: atraumatic, normocephalic, normal inspection Eye exam: Present: normal appearance, PERRL, EOMI. Absent: scleral icterus, conjunctival injection, periorbital swelling ENT exam: Present: normal exam, mucous membranes moist Neck exam: Present: normal inspection. Absent: tenderness, meningismus, lymphadenopathy Respiratory exam: Present: normal lung sounds bilaterally. Absent: respiratory distress, wheezes, rales, rhonchi, stridor Cardiovascular Exam: Present: regular rate, normal rhythm, normal heart sounds. Absent: systolic murmur, diastolic murmur, rubs, gallop, clicks GI/Abdominal exam: Present: soft, normal bowel sounds. Absent: distended, tenderness, guarding, rebound, rigid Extremities exam: Present: normal inspection, full ROM, normal capillary refill. Absent: tenderness, pedal edema, joint swelling, calf tenderness Back exam: Present: normal inspection Neurological exam: Present: alert, oriented X3, CN II-XII intact Psychiatric exam: Present: depressed, flat affect, suicidal ideation Skin exam: Present: warm, dry, intact, normal color. Absent: rash Course Vital Signs 10/11/22 10/12/22 15:58 02:06 Temperature 97.2 F L 97.8 F Pulse Rate 76 Pulse Rate [ 68 Left Sitting] Respiratory 16 14 Rate Blood Pressure 106/73 Blood Pressure 108/58 [Left Arm Sitting] O2 Sat by Pulse 98 93 L Oximetry - Reevaluation(s) Reevaluation #1: 10/11/22 21:00 The patient's care will be endorsed to Dr. Borges at her shift change pending EPS evaluation Medical Decision Making - Medical Decision Making Patient was evaluated by the EPS service and admitted for inpatient evaluation and treatment. Was pt. sent in by a medical professional or institution? @ No -[by , DANE, ORTHOTIST/PROSTHETIST, urgent care, hospital, or group home] Did you speak to anyone other than the patient for history? @ No -[EMS, parent, family, police, friend?] Did you review nursing and triage notes? @ Yes I agree-[agree or disagree, why?] Were old charts reviewed? @ No -[outside hosp., previous admissions, EMS record, old EKG, old radiological studies, urgent care reports/EKGs, group home records?] Differential Diagnosis? @ Depression, suicidal ideation-[chest pain, altered mental status abdominal pain women, abdominal pain men, vaginal bleeding, weakness, fever, dyspnea, syncope, headache, dizziness, GI bleed, back pain, seizure] EKG interpreted by me (3pts min.)? @ -[none] X-rays interpreted by me (1pt min.)? @ -[none] CT interpreted by me (1pt min.)? @ -[none] U/S interpreted by me (1pt. min.)? @ -[none] What testing was considered but not performed? (CT, X-rays, U/S, labs)? Why? @ [CT, X-rays, U/S, labs? Why?] What meds were considered but not given? Why? @ -[none] Did you discuss the management of the patient with other professionals? @ -[professionals i.e. , PA, ORTHOTIST/PROSTHETIST, Lab, RT, Psych Nurse, Stock Fitter, Spar Machine Operator, Teacher, Able Seaman, adult protective caseworker? Give summary] Did you reconcile home meds? @ -[none] Was smoking cessation discussed for >3mins.? @ -[none] Was critical care preformed (if so, how long)? @ -[none] Were there social determinants of health that impacted care today? How? (Homelessness, low income, unemployed, alcoholism, drug addiction, transportation, low edu. Level, literacy, decrease access to med. care, retirement, rehab)? @ No -[Homelessness, low income, unemployed, alcoholism, drug addiction, transportation, low edu. Level, literacy, decrease access to med. care, retirement, rehab?] Was there de-escalation of care discussed even if they declined? (Discuss DNR or withdrawal of care, Hospice)? @ No-[Discuss DNR or withdrawal of care, Hospice?] What co-morbidities impacted this encounter? (DM, HTN, Smoking, COPD, CAD, Ca ncer, CVA, Hep., AIDS, mental health diagnosis, sleep apnea, morbid obesity)? @ No-[DM, HTN, Smoking, COPD, CAD, Cancer, CVA, Hep., AIDS, mental health diagnosis, sleep apnea, morbid obesity?] Was patient admitted / discharged? @ Patient was admitted-[hospital course] Undiagnosed new problem with uncertain prognosis? @ -[none] Drug Therapy requiring intensive monitoring for toxicity (Heparin, Nitro, Insulin, Cardizem)? @ -[none] Were any procedures done? @ -[none] Diagnosis/symptom? @ Depression, suicidal ideation-[default] Acute, or Chronic, or Acute on Chronic? @ Acute exacerbation of chronic symptoms-[default] Uncomplicated (without systemic symptoms) or Complicated (systemic symptoms)? @ -[default] Side effects of treatment? @ -[none] Exacerbation, Progression, or Severe Exacerbation] @ -[no] Poses a threat to life or bodily function? @ -[no] - Lab Data Result diagrams: 10/12/22 09:07 10/13/22 09:52 Lab Results 10/11/22 Range/Units 21:25 Coronavirus (PCR) Not Detected (Not Detectd) Disposition Clinical Impression: Depression, Suicidal ideation Disposition: TRANSFER TO PSYCH HOSP/UNIT Condition: Fair
[2022-10-12] MEDS ORDERED: LORazepam 1 MG TAB PO PRN (00:43)
[2022-10-12] MEDS ORDERED: MAG HYDROX/AL HYDROX/SIMETH 30 ML CUP PO PRN (00:43)
[2022-10-12] MEDS ORDERED: MAGNESIUM HYDROXIDE 2,400 MG/10 ML CUP PO PRN (00:43)
[2022-10-12] MEDS ORDERED: haloperidoL 5 MG TAB PO PRN (00:48)
[2022-10-12] MEDS ORDERED: ALBUTEROL HFA INHALER INHALATION PRN (00:49)
[2022-10-12] MEDS ORDERED: IPRATROPIUM 0.5 MG/2.5 ML NEBU INHALATION SCH (08:00)
[2022-10-12] MEDS ORDERED: SYMBICORT 80-4.5 MCG INHALER INHALATION SCH (08:00)
[2022-10-12] MEDS: TOPIRAMATE 100 MG TAB PO SCH ×2 (08:32→22:07)
[2022-10-12] MEDS: NICOTINE 14MG/24HR PATCH TRANSDERM SCH (08:32)
[2022-10-12] MEDS: hydrOXYzine pamoate 25 MG CAP PO SCH ×3 (08:32→20:34)
[2022-10-12] MEDS ORDERED: AMITRIPTYLINE HCL 25 MG TAB PO SCH (09:00)
[2022-10-12 09:52] LABS: Basophils # (A) 0.1 k/uL (0-0.2); Basophils % (A) 1 %; Eosinophils % (A) 0 %; HCT 49.3 % (34.0-46.0); HGB 16.2 gm/dL (11.4-16.0); Lymphocytes # (A) 2.6 k/uL (1.0-4.8); Lymphocytes % (A) 31 %; MCH 33.9 pg (25.0-35.0); MCHC 32.8 g/dL (31.0-37.0); MCV 103.3 fL (80.0-100.0); Macrocytosis Slight; Mean Platelet Volume 8.4; Monocytes # (A) 0.4 k/uL (0-1.0); Monocytes % (A) 5 %; Neutrophils % (A) 61 %; Platelet Count 335 k/uL (150-450); RBC 4.77 m/uL (3.80-5.40); RDW 12.5 % (11.5-15.5); WBC 8.1 k/uL (3.8-10.6)
[2022-10-12] MEDS: TRELEGY ELLIPTA INHALATION SCH (10:02)
--- NOTE | 2022-10-12 10:11 | P.HPIM ---
History of Present Illness H&P Date: 10/12/22 Chief Complaint: Depression This is a 46-year-old patient of presented to the ER concerns of depression and suicidal ideation. Patient reports that she was in patient at [facility]. DC'd prior to [place]. Patient reports not feeling significant improvement on medication with continued depression and suicidal ideation. Patient does have a past medical history of GERD, deafness, epilepsy, anxiety bipolar depression. Patient reports nicotine dependence in marijuana use. Patient denies any acute medical issues. Patient is currently resting comfortably in bed. Patient denies chest pain or shortness breath. Patient denies nausea vomiting or frequency Review of Systems Please refer to HPI otherwise unremarkable Past Medical History Past Medical History: GERD/Reflux, Hearing Disorder / Deafness, Neurologic Disorder, Seizure Disorder Additional Past Medical History / Comment(s): having nausea and diarrhea, EPILEPSY, LAST SEIZURE "2 years ago", Neuropathy arms & hands, memory issues History of Any Multi-Drug Resistant Organisms: None Reported Past Surgical History: Appendectomy, Hysterectomy, Orthopedic Surgery Additional Past Surgical History / Comment(s): RADIAL NERVE SURG [place]. Past Anesthesia/Blood Transfusion Reactions: No Reported Reaction Past Psychological History: Anxiety, Bipolar, Depression Additional Psychological History / Comment(s): ADM 11/2015 FOR RX OVERDOSE. Smoking Status: Current every day smoker Past Alcohol Use History: None Reported Additional Past Alcohol Use History / Comment(s): SMOKER SINCE AGE 16, 1 ppd Past Drug Use History: None Reported Additional Drug Use History / Comment(s): SMOKES "ABOUT 1 JOINT A DAY," PER PATIENT. - Past Family History Father Family Medical History: Coronary Artery Disease (CAD) Additional Family Medical History / Comment(s): quadruple cabg, bipolar, ptsd Sister(s) Additional Family Medical History / Comment(s): ETOH bipolar Medications and Allergies Home Medications Medication Instructions Recorded Confirmed Type Topiramate [Topamax] 200 mg PO HS 05/06/14 10/12/22 History levETIRAcetam [Keppra] 1,500 mg PO BID 11/26/15 10/12/22 History Topiramate [Topamax] 400 mg PO DAILY 06/24/20 10/12/22 History Albuterol Inhaler [Ventolin Hfa 2 puff INHALATION RT-QID PRN 10/11/22 10/12/22 History Inhaler] Amitriptyline HCl [Elavil] 25 mg PO TID 10/11/22 10/12/22 History Fluticasone/Umeclidin/Vilanter 1 puff INHALATION RT-DAILY 10/11/22 10/12/22 History [Trelegy Ellipta 100-62.5-25] Mirtazapine 45 mg PO HS 10/11/22 10/12/22 History Nicotine 21Mg/24Hr Patch [Habitrol] 1 patch TRANSDERM DAILY PRN 10/11/22 10/12/22 History Perphenazine [Trilafon] 4 mg PO TID 10/11/22 10/12/22 History clonazePAM [KlonoPIN] 1 mg PO QID 10/11/22 10/12/22 History hydrOXYzine pamoate 50 mg PO TID 10/11/22 10/12/22 History Allergies Allergy/AdvReac Type Severity Reaction Status Date / Time No Known Allergies Allergy Verified 10/12/22 01:58 Physical Exam Vitals: Vital Signs Temp Pulse Pulse Resp BP BP Pulse Ox 10/12/22 02:06 97.8 F 68 14 108/58 93 L 10/11/22 15:58 97.2 F L 76 16 106/73 98 Intake and Output 10/11/22 10/12/22 10/12/22 22:59 06:59 14:59 Other: Weight 68.039 kg 65.856 kg Head normocephalic Neck supple Lungs clear to auscultation bilaterally no wheezing or crackles Heart regular rate and rhythm S1-S2, no rub or gallop Abdomen is soft nontender nondistended positive bowel sounds no hepatosplenomegaly Extremities no edema Neuro alert and orientated to 3 Results CBC & Chem 7: 10/12/22 09:07 Labs: Abnormal Lab Results - Last 24 Hours (Table) 10/12/22 Range/Units 09:07 Hgb 16.2 H (11.4-16.0) gm/dL Hct 49.3 H (34.0-46.0) % MCV 103.3 H (80.0-100.0) fL Assessment and Plan Assessment: 1. Depression with suicidal ideation 2. History of GERD 3. History of epilepsy 4. History of deafness 5. History of anxiety and depression 6. Nicotine dependence 7. Marijuana use Patient has been admitted to inpatient psych Acute for this consultation we'll continue to follow patient closely throughout stay Time with Patient: Greater than 30 (Greater than 60% of the total time spent in counseling and coordination of care)
--- NOTE | 2022-10-12 14:03 | P.HP ---
Psychiatric H&P - . H&P Date: 10/12/22 History & Physical: Allergies Allergy/AdvReac Type Severity Reaction Status Date / Time No Known Allergies Allergy Verified 10/12/22 01:58 Vital Signs Temp 97.8 F 10/12/22 02:06 Pulse 68 10/12/22 02:06 Resp 14 10/12/22 02:06 BP 108/58 10/12/22 02:06 Pulse Ox 93 L 10/12/22 02:06 FiO2 Intake & Output 10/11/22 10/12/22 10/12/22 18:59 06:59 18:59 Weight 68.039 kg 65.856 kg Laboratory Last Values WBC 8.1 k/uL (3.8-10.6) 10/12/22 09:07 RBC 4.77 m/uL (3.80-5.40) 10/12/22 09:07 Hgb 16.2 gm/dL (11.4-16.0) H 10/12/22 09:07 Hct 49.3 % (34.0-46.0) H 10/12/22 09:07 MCV 103.3 fL (80.0-100.0) H 10/12/22 09:07 MCH 33.9 pg (25.0-35.0) 10/12/22 09:07 MCHC 32.8 g/dL (31.0-37.0) 10/12/22 09:07 RDW 12.5 % (11.5-15.5) 10/12/22 09:07 Plt Count 335 k/uL (150-450) 10/12/22 09:07 MPV 8.4 10/12/22 09:07 Neutrophils % 61 % 10/12/22 09:07 Lymphocytes % 31 % 10/12/22 09:07 Monocytes % 5 % 10/12/22 09:07 Eosinophils % 0 % 10/12/22 09:07 Basophils % 1 % 10/12/22 09:07 Neutrophils # 5.0 k/uL (1.3-7.7) 10/12/22 09:07 Lymphocytes # 2.6 k/uL (1.0-4.8) 10/12/22 09:07 Monocytes # 0.4 k/uL (0-1.0) 10/12/22 09:07 Eosinophils # 0.0 k/uL (0-0.7) 10/12/22 09:07 Basophils # 0.1 k/uL (0-0.2) 10/12/22 09:07 Macrocytosis Slight 10/12/22 09:07 TSH 1.460 mIU/L (0.465-4.680) 10/12/22 09:07 Coronavirus (PCR) Not Detected (Not Detectd) 10/11/22 21:25 10/12/22 13:31 IDENTIFYING DATA: Patient is a 46-year-old female, currently , lives alone in apartment, collecting survivor's spousal benefits. no kids. HPI: Patient presented to the hospital yesterday complaining of suicidal ideations and depression. Patient was admitted voluntarily to mental health unit. Patient was seen today wondering always agreeable to speak to writer producer in the office. Patient appeared to be disheveled appearance and older than stated age. She claims that she recently got out of [facility] last month and states that "they changed my medications" and states that she was feeling much worse after leaving. She claims that she has been feeling more suicidal lately and depressed. She also claims that she was about to overdose at home however had a change of heart and came to the hospital. She states that she's been having poor appetite and poor sleep as well. She states that she's been following up with a neurologist and is currently on Topamax and also Keppra for her seizures. She claims that she has been having racing thoughts and also flight of ideas lately. Anxiety has been elevated. Claims that she is also avoiding people due to past history of trauma and teasing during school. She states that she is still having suicidal thoughts, no homicidal ideations intent or plan. At this time patient denies any auditory or visual hallucinations. Patient claims that she smokes marijuana and cigarettes daily. Denies any other recreational drug use. PAST PSYCHIATRIC HISTORY: Patient states that she has a history of bipolar diagnosed at the age of 12. She claims that she's been on several different medications in the past cooking Xanax, Geodon, Elavil, Cymbalta, Remeron and Lamictal. She states that she's been hospitalized several times in the past, most recently last month at [facility]. She claims that she currently follows up in the [place] for both therapy and also psychiatric care at [facility]. She claims that she attempted to overdose 3 times in the past. Past Medical History: GERD/Reflux, Hearing Disorder / Deafness, Neurologic Disorder, Seizure Disorder Additional Past Medical History / Comment(s): having nausea and diarrhea, EPILEPSY, LAST SEIZURE 12/02/2018, Neuropathy arms & hands, memory issues History of Any Multi-Drug Resistant Organisms: None Reported Past Surgical History: Appendectomy, Hysterectomy, Orthopedic Surgery Additional Past Surgical History / Comment(s): RADIAL NERVE SURG [place]. Past Anesthesia/Blood Transfusion Reactions: No Reported Reaction Past Psychological History: Anxiety, Bipolar, Depression Smoking Status: Current every day smoker Past Alcohol Use History: None Reported Past Drug Use History: None Reported ALLERGIES: as per EMR CHEMICAL DEPENDENCY HISTORY: as per HPI FAMILY PSYCHIATRIC/SUBSTANCE USE HISTORY: Claims that "everyone on my father's side is bipolar". SOCIAL HISTORY: Patient was born and raised in [facility]. She states that she completed high school. She claims that she used to work doing waitressing, working in fast food and also has a live-in [employer] in the past. States that currently she is collecting survival spouse benefits. She is . She has no kids. She lives alone in an apartment. She is denying any legal history. MENTAL STATUS EXAM: General Appearance: Patient appears to be overweight, disheveled appearance, stated age is alert, directable, and attempts to cooperate. Patient appears to have poor hygiene and grooming. Behavior: Patient is seated without any agitated behavior. Attempt to cooperate. Speech: Patient's speech is fluent and nonpressured. Mood/Affect: Patient reports their mood is depressed and anxious, affect is congruent and constricted. Suicidality/Homicidality: Patient denies having any homicidal ideation intent or plan. She claims that she is having suicidal thoughts, no intent or plan. Perceptions: Patient denies any visual hallucinations and denies any auditory hallucinations Though content/process: There is no evidence of any delusional thought content and thought process is linear and goal-directed. Focus on her medications and stressors. Memory and concentration: AOX3, grossly intact for the purposes of this session. Can spell "WORLD" backwards Judgment and insight: poor STRENGTHS/WEAKNESSES: strength is that patient is resilient. Weakness is that patient has poor judgment and is impulsive INTELLECT: average IMPRESSIONS: Bipolar disorder, currently depressed social anxiety Cannabis use disorder Nicotine dependence PLAN: -Patient is admitted under voluntary status to MHU for stabilization of psychiatric symptoms and safety. Patient has signed adult voluntary form and medication consent and is placed in patient's chart. -Medications : Will start patient on Prozac 20 mg daily for mood/anxiety, Zyprexa 5 mg daily at bedtime for mood stabilization/insomnia. continue with AED keppra and topomax at her home dose. vistaril 50 mg tid for anxiety. Klonopin 1mg tid prn for anxiety. -Haldol PRN for agitation/aggression -Patient was counselled on substance abuse and desired to cut back on use -Patient was informed of the risks, benefits and side effects of the medication and patient verbally consented to taking the medications. Patient signed med consent form and was placed in chart. -Internal Medicine consult to perform medical evaluation and physical. -NRT - nicotine patch -SW on board for discharge planning. Encourage patient to participate in groups to work on coping skills.
[2022-10-12] MEDS: FLUoxetine HCL 20 MG CAP PO SCH (14:25)
[2022-10-12] MEDS: clonazePAM 1 MG TAB PO PRN ×2 (14:28→22:06)
[2022-10-12] MEDS ORDERED: OLANZapine 5 MG TAB PO SCH (21:00)
[2022-10-12] MEDS: ALBUTEROL INHALER 60 PUFF/8 GM INHALER (MHU) INHALATION PRN (22:07)
[2022-10-13] MEDS: ACETAMINOPHEN TAB 325 MG TAB PO PRN ×2 (09:02→17:33)
[2022-10-13] MEDS: NICOTINE 14MG/24HR PATCH TRANSDERM SCH (09:03)
[2022-10-13] MEDS: TOPIRAMATE 100 MG TAB PO SCH ×2 (09:04→21:08)
[2022-10-13] MEDS: hydrOXYzine pamoate 25 MG CAP PO SCH ×3 (09:05→21:06)
[2022-10-13] MEDS: FLUoxetine HCL 20 MG CAP PO SCH (09:05)
[2022-10-13] MEDS: TRELEGY ELLIPTA INHALATION SCH (09:06)
[2022-10-13] MEDS: clonazePAM 1 MG TAB PO PRN ×3 (09:08→17:04)
[2022-10-13 10:36] LABS: ALT 15 U/L (4-34); African American GFR (CKD) >90 (>60 ml/min/1.73 sqM); Albumin 4.2 g/dL (3.5-5.0); Alkaline Phosphatase 66 U/L (38-126); Anion Gap 9 mmol/L; Bilirubin, Delta 0.5 mg/dL (0.0-0.2); Bilirubin,Unconjugated 0.1 mg/dL (0.0-1.1); Blood Urea Nitrogen 9 mg/dL (7-17); Calcium 8.8 mg/dL (8.4-10.2); Carbon Dioxide 18 mmol/L (22-30); Chloride 115 mmol/L (98-107); Glucose 107 mg/dL (74-99); Non-African American GFR(CKD) >90 (>60 ml/min/1.73 sqM); Sodium 142 mmol/L (137-145); Total Bilirubin 0.6 mg/dL (0.2-1.3); Total Protein 7.7 g/dL (6.3-8.2)
[2022-10-13 10:41] LABS: AST 23 U/L (14-36)
[2022-10-13 10:50] LABS: Potassium 4.5 mmol/L (3.5-5.1)
--- NOTE | 2022-10-13 14:25 | P.PN ---
Progress Note - Text Progress Note Date: 10/13/22 Interval history: Patient was seen today wandering the hallways after lunch and was agreeable to speak with marketing underwriter in the office. Patient conitnues to endorse depression and anxiety today. she claims that she is feeling overwhelmed and hesitant in her speech. she claims that she has mainly isolating self. has not been going to groups. she states that she slept fairly at night, appetite is still poor. still not notice difference with meds. had thoughts of SI of jumping out of the bedroom window this morning. denying any AH or Vh at this time. Denying any side effects. Mental Status Exam: General Appearance: Patient appears to be overweight, disheveled in appearance, stated age is alert, directable, and cooperative. Behavior: Patient is calmly seated without any agitated behavior. Withdrawn and isolative. Speech: Patient's speech is fluent and nonpressured. Hesitant at times. Mood/Affect: Mood is continues to endorse depression and anxiety, affect is congruent and constricted. Suicidality/Homicidality: Patient denies having any homicidal ideations, She claims that she is having suicidal thoughts. Perceptions: Patient denies any visual hallucinations and denies any auditory hallucinations Though content/process: There is no evidence of any delusional thought content a nd thought process is linear and goal-directed. Focus on her medications and stressors. Hopelessness. Memory and concentration: AOX3, grossly intact for the purposes of this session Judgment and insight: Improving mildly Assessment Bipolar disorder, currently depressed social anxiety Cannabis use disorder Nicotine dependence Plan: -Patient continues to meet criteria for inpatient psychiatric admission for symptom stabilization and safety. Patient has signed adult voluntary form and medication consent and was placed in patient's chart. -Medications: increase Prozac 40 mg daily for mood/anxiety, increase Zyprexa 7.5 mg daily at bedtime for mood stabilization/insomnia. continue with AED keppra and topomax at her home dose. vistaril 50 mg tid for anxiety. Klonopin 1mg tid prn for anxiety. -When necessary Ativan and Haldol for agitation/aggression. -NRT - nicotine patch -SW on board for discharge planning. Encouraged the patient to participate in milieu.
[2022-10-13 17:50] LABS: Chol/HDL Ratio 6.93 Ratio; LDL Cholesterol,Calculated 183.7 mg/dL (0.0-131.0)
[2022-10-13] MEDS: HALOPERIDOL LACTATE 5 MG/ML 1 ML VIAL IM PRN (17:59)
[2022-10-13] MEDS: LORazepam 2 MG/ML INJ IM PRN (17:59)
[2022-10-13] MEDS ORDERED: OLANZapine 7.5 MG TAB PO SCH (21:00)
[2022-10-14] MEDS: TRELEGY ELLIPTA INHALATION SCH (08:46)
[2022-10-14] MEDS: hydrOXYzine pamoate 25 MG CAP PO SCH ×3 (08:46→21:17)
[2022-10-14] MEDS: FLUoxetine HCL 20 MG CAP PO SCH (08:46)
[2022-10-14] MEDS: NICOTINE 14MG/24HR PATCH TRANSDERM SCH (08:46)
[2022-10-14] MEDS: TOPIRAMATE 100 MG TAB PO SCH ×2 (08:47→21:18)
[2022-10-14] MEDS: clonazePAM 1 MG TAB PO PRN ×3 (08:49→21:18)
[2022-10-14] MEDS: ACETAMINOPHEN TAB 325 MG TAB PO PRN (15:48)
[2022-10-14] MEDS: LORazepam 2 MG/ML INJ IM PRN (16:08)
[2022-10-14] MEDS: HALOPERIDOL LACTATE 5 MG/ML 1 ML VIAL IM PRN (16:09)
--- NOTE | 2022-10-14 19:51 | P.PN ---
Progress Note - Text Progress Note Date: 10/14/22 Interval history: Patient was seen using the phone and was directable and agreeable to speak with feature writer. She reports high anxiety and ruminating thoughts. She reports feeling frustrated over her father not visiting. She endorses suicidal thoughts with plan to overdose however she states there is no way to do it in the hospital so she currently has no intent. She denies HI/AVH. Patient denies any side effects from the medications and has been compliant with meds. She asks for an increase to her Klonopin 1mg TID however we discussed this would not be increased. Mental status exam: General Appearance: Patient appears to be stated age, fair hygiene, disheveled in appearance. Behavior: No agitated behavior. Patient is directable and somewhat childlike in demeanor. Speech: Patient's speech is fluent and non-pressured. Mood/Affect: Mood is anxious, affect is congruent and constricted. Suicidality/Homicidality: Patient endorses suicidal ideations with plan but no intent currently, she denies homicidal ideation intent or plan. Perceptions: Patient denies any auditory or visual hallucinations. Though content/process: There is no evidence of any delusional thought content and thought process is ruminative. Memory and concentration: AOX3, grossly intact for the purposes of this session Judgment and insight: improving mildly Assessment/Plan: Continue with current diagnosis. Patient continues to meet criteria for inpatient psychiatric admission for symptom stabilization and safety. Increase Zyprexa to 10 mg QHS for mood stabilization. Prozac was increased to 40 mg daily this morning for depression/anxiety. Will continue to monitor at this dose and increase as tolerated. Monitor for medication compliance and for any psychotropic medication side effects. Will continue to monitor ongoing response to treatment. Encouraged participation in milieu.
[2022-10-14] MEDS: OLANZapine 10 MG TAB PO SCH (21:17)
[2022-10-15] MEDS: TRELEGY ELLIPTA INHALATION SCH (09:00)
[2022-10-15] MEDS: hydrOXYzine pamoate 25 MG CAP PO SCH ×3 (09:00→21:09)
[2022-10-15] MEDS: FLUoxetine HCL 20 MG CAP PO SCH (09:00)
[2022-10-15] MEDS: TOPIRAMATE 100 MG TAB PO SCH ×2 (09:01→21:09)
[2022-10-15] MEDS: NICOTINE 14MG/24HR PATCH TRANSDERM SCH (09:02)
[2022-10-15] MEDS: clonazePAM 1 MG TAB PO PRN ×3 (10:09→21:10)
[2022-10-15] MEDS ORDERED: LORazepam 1 MG TAB PO PRN (18:17)
[2022-10-15] MEDS: ALBUTEROL INHALER 60 PUFF/8 GM INHALER (MHU) INHALATION PRN (21:08)
[2022-10-15] MEDS: OLANZapine 10 MG TAB PO SCH (21:09)
[2022-10-15] MEDS: HALOPERIDOL LACTATE 5 MG/ML 1 ML VIAL IM PRN (21:59)
--- NOTE | 2022-10-15 22:30 | P.PN ---
Progress Note - Text Progress Note Date: 10/15/22 Interval history: Patient was seen resting in her room and was directable and agreeable to speak with editorial writer. She reports high anxiety and ruminating thoughts again today. Her mood and affect appear improved today since increasing the Zyprexa last night. She Continues to endorse suicidal thoughts today but no specific plan. She denies HI/AVH. Patient denies any side effects from the medications and has been compliant with meds. Mental status exam: General Appearance: Patient appears to be stated age, fair hygiene, improved in appearance today, hair brushed. Behavior: No agitated behavior. Patient is directable and somewhat childlike in demeanor. Speech: Patient's speech is fluent and non-pressured. Mood/Affect: Mood is anxious, affect is congruent and constricted. Suicidality/Homicidality: Patient endorses suicidal ideations but no specific plan today; she denies homicidal ideation intent or plan. Perceptions: Patient denies any auditory or visual hallucinations. Though content/process: There is no evidence of any delusional thought content and thought process is ruminative. Memory and concentration: AOX3, grossly intact for the purposes of this session Judgment and insight: improving mildly Assessment/Plan: Continue with current diagnosis. Patient continues to meet criteria for inpatient psychiatric admission for symptom stabilization and safety. Increase Zyprexa to 5 mg daily in the morning and 10 mg QHS for mood stabilization. Continue Prozac 40 mg daily for depression/anxiety. Will continue to monitor at this dose and consider increasing to 60 mg daily as tolerated for anxiety. Monitor for medication compliance and for any psychotropic medication side effects. Will continue to monitor ongoing response to treatment. Encouraged participation in milieu.
[2022-10-16] MEDS: NICOTINE 14MG/24HR PATCH TRANSDERM SCH (08:53)
[2022-10-16] MEDS: FLUoxetine HCL 20 MG CAP PO SCH (08:53)
[2022-10-16] MEDS: TRELEGY ELLIPTA INHALATION SCH (08:54)
[2022-10-16] MEDS: hydrOXYzine pamoate 25 MG CAP PO SCH ×3 (08:54→22:14)
[2022-10-16] MEDS: OLANZapine 5 MG TAB PO SCH (08:54)
[2022-10-16] MEDS: TOPIRAMATE 100 MG TAB PO SCH ×2 (08:54→22:14)
[2022-10-16] MEDS: clonazePAM 1 MG TAB PO PRN ×3 (08:55→23:29)
[2022-10-16] MEDS ORDERED: FLUoxetine HCL 20 MG CAP PO STA (10:19)
[2022-10-16] MEDS: busPIRone HCl 5 MG TAB PO SCH ×3 (10:32→22:15)
[2022-10-16] MEDS: ALBUTEROL INHALER 60 PUFF/8 GM INHALER (MHU) INHALATION PRN (10:33)
--- NOTE | 2022-10-16 10:49 | P.PN ---
Progress Note - Text Progress Note Date: 10/16/22 Interval history: Patient was seen today wandering the hallways and was agreeable to speak with ghost writer in the office. Patient conitnues to endorse depression and anxiety today and states that "my anxiety has been out of control". She continues to state that she feels anxious when being in groups. She also states that yesterday she was feeling suicidal and snuck a plastic knife into her room and tried to harm herself with it. She claims that "it didn't work". She states she has been trying to go to some groups. She continues to state that she does feel suicidal at times however has no intent or plan at this time. She claims that she was having trouble sleeping last night and was agreeable to try trazodone. We spoke about other medications for anxiety and she was okay with taking BuSpar today. Vision also states that she wanted ghost writer to speak with her outpatient psychiatrist. denying any AH or Vh at this time. Denying any side effects. Mental Status Exam: General Appearance: Patient appears to be overweight, improving in appearance, stated age is alert, directable, and tends to be cooperative. Behavior: Patient is calmly seated without any agitated behavior. Her visible on the unit. Attempts to cooperate. Speech: Patient's speech is fluent and nonpressured. Mood/Affect: Mood is continues to endorse depression and anxiety, affect is congruent Suicidality/Homicidality: Patient denies having any homicidal ideations, endorsing suicidal thoughts, no intent or plan. Perceptions: Patient denies any visual hallucinations and denies any auditory hallucinations Though content/process: There is no evidence of any delusional thought content and thought process is linear and goal-directed. Focus on her medications and stressors. Hopelessness. Memory and concentration: AOX3, grossly intact for the purposes of this session Judgment and insight: Improving mildly Assessment: Bipolar disorder, currently depressed social anxiety Cannabis use disorder Nicotine dependence Plan: -Patient continues to meet criteria for inpatient psychiatric admission for symptom stabilization and safety. Patient has signed adult voluntary form and medication consent and was placed in patient's chart. -Medications: increase Prozac 60 mg daily for mood/anxiety, continue Zyprexa 10 mg QHS and 5 mg daily for mood stabilization/insomnia. continue with AED keppra and topomax at her home dose. vistaril 50 mg tid for anxiety. Klonopin 1mg tid prn for anxiety. start trazodone 50 mg qhs for sleep/mood, buspar 15 mg tid for anxiety. -When necessary Ativan and Haldol for agitation/aggression. -NRT - nicotine patch -SW on board for discharge planning. Encouraged the patient to participate in milieu. will give patients outpatient psychiatrist a call today for further information. possibly discharge in 2-3 days.
[2022-10-16] MEDS ORDERED: traZODone HCL 50 MG TAB PO SCH (21:00)
[2022-10-16] MEDS: OLANZapine 10 MG TAB PO SCH (22:14)
[2022-10-17] MEDS: busPIRone HCl 5 MG TAB PO SCH (08:40)
[2022-10-17] MEDS: hydrOXYzine pamoate 25 MG CAP PO SCH ×3 (08:40→21:05)
[2022-10-17] MEDS: NICOTINE 14MG/24HR PATCH TRANSDERM SCH (08:40)
[2022-10-17] MEDS: OLANZapine 5 MG TAB PO SCH (08:42)
[2022-10-17] MEDS: FLUoxetine HCL 20 MG CAP PO SCH (08:42)
[2022-10-17] MEDS: TRELEGY ELLIPTA INHALATION SCH (08:43)
[2022-10-17] MEDS: TOPIRAMATE 100 MG TAB PO SCH ×2 (08:44→21:05)
[2022-10-17] MEDS: clonazePAM 1 MG TAB PO PRN ×3 (08:49→23:35)
[2022-10-17] MEDS ORDERED: OLANZapine 5 MG TAB PO ONE (10:06)
--- NOTE | 2022-10-17 10:13 | P.PN ---
Progress Note - Text Progress Note Date: 10/17/22 Interval history: Patient was seen today wandering the hallways and was agreeable to speak with jingle writer in the office. Patient claims that she is still feeling depressed at this time. She claims that she is still having suicidal thoughts as well and claims that she was thinking about "hitting my mirror repeatedly this morning". She states that she fears that she will also overdosed on her medications if she is released from the hospital. She claims that she did not sleep well last night about 4 hours. She claims that she still having depression and anxiety. She continues to focus on her antiepileptic medications and also getting in touch with her neurologist and also her psychiatrist. denying any AH or Vh at this time. Denying any side effects. 9 homicidal ideations. Mental Status Exam: General Appearance: Patient appears to be overweight, improving in appearance, stated age is alert, directable, and tends to be cooperative. Behavior: Patient is calmly seated without any agitated behavior. She is visible on the unit. Attempts to cooperate. Speech: Patient's speech is fluent and nonpressured. Mood/Affect: Mood is continues to endorse depression and anxiety, affect is congruent and constricted Suicidality/Homicidality: Patient denies having any homicidal ideations, endorsing suicidal thoughts Perceptions: Patient denies any visual hallucinations and denies any auditory hallucinations Though content/process: There is no evidence of any delusional thought content and thought process is linear and goal-directed. Focus on her medications and stressors. Memory and concentration: AOX3, grossly intact for the purposes of this session Judgment and insight: Improving mildly Assessment: Bipolar disorder, currently depressed social anxiety Cannabis use disorder Nicotine dependence Plan: -Patient continues to meet criteria for inpatient psychiatric admission for symptom stabilization and safety. Patient has signed adult voluntary form and medication consent and was placed in patient's chart. -Medications: Prozac 60 mg daily for mood/anxiety, increase Zyprexa 10 mg BID for mood stabilization/insomnia. continue with AED keppra and topomax at her home dose. vistaril 50 mg tid for anxiety. Klonopin 1mg tid prn for anxiety. increase trazodone 50 mg qhs for sleep/mood, increase buspar 20 mg tid for anxiety. -When necessary Ativan and Haldol for agitation/aggression. -NRT - nicotine patch -SW on board for discharge planning. Encouraged the patient to participate in milieu. attempted to call outpatient psychiatrist and neurologist however got no answer and no call back. patient is still endorsing suicidal thoughts and stating that she is depressed and in danger of overdosing or harming herself.
[2022-10-17] MEDS: busPIRone HCl 10 MG TAB PO SCH ×2 (15:36→21:05)
[2022-10-17] MEDS: ACETAMINOPHEN TAB 325 MG TAB PO PRN (15:37)
[2022-10-17] MEDS: ALBUTEROL INHALER 60 PUFF/8 GM INHALER (MHU) INHALATION PRN (19:08)
[2022-10-17] MEDS ORDERED: traZODone HCL 100 MG TAB PO SCH (21:00)
[2022-10-17] MEDS: OLANZapine 10 MG TAB PO SCH (21:05)
[2022-10-18] MEDS: NICOTINE 14MG/24HR PATCH TRANSDERM SCH (08:31)
[2022-10-18] MEDS: busPIRone HCl 10 MG TAB PO SCH ×2 (08:32→20:20)
[2022-10-18] MEDS: TRELEGY ELLIPTA INHALATION SCH (08:32)
[2022-10-18] MEDS: hydrOXYzine pamoate 25 MG CAP PO SCH ×3 (08:32→23:05)
[2022-10-18] MEDS: FLUoxetine HCL 20 MG CAP PO SCH (08:33)
[2022-10-18] MEDS: OLANZapine 10 MG TAB PO SCH ×2 (08:34→20:19)
[2022-10-18] MEDS: clonazePAM 1 MG TAB PO PRN (08:34)
[2022-10-18] MEDS: TOPIRAMATE 100 MG TAB PO SCH ×2 (08:34→20:20)
[2022-10-18] MEDS: HALOPERIDOL LACTATE 5 MG/ML 1 ML VIAL IM PRN (11:34)
--- NOTE | 2022-10-18 11:35 | P.PN ---
Progress Note - Text Progress Note Date: 10/18/22 Interval history: Patient was seen today wandering the hallways and was agreeable to speak with curriculum writer in the office. Patient states that she was in group earlier. She claims that yesterday she was having suicidal urges and thoughts and attempted to choke herself when she was lying in her bed. She claims that she also snuck out plastic utensils from the [employer] a few days ago and was attempting to harm herself with it. She claims that she is still having on and off suicidal thoughts and urges howeverof a plan today. She was complaining today about being put on finger foods. She claims that she slept a bit better last night about 5 hours. She appears to be less depressed and anxious today and was endorsing it less today as well. Claims to be eating fairly at this time. Patient claims that she is still feeling depressed at this time. She claims that she is still having suicidal thoughts as well and claims that she was thinking about "hitting my mirror repeatedly this morning". denying any AH or Vh at this time. Denying any side effects. Denies any homicidal ideations. Mental Status Exam: General Appearance: Patient appears to be overweight, improving in appearance, stated age is alert, directable, and manipulative at times. Behavior: Patient is calmly seated without any agitated behavior. She is visible on the unit. Speech: Patient's speech is fluent and nonpressured. Mood/Affect: Mood is continues to endorse depression and anxiety, improving mildly, affect is congruent and constricted Suicidality/Homicidality: Patient denies having any homicidal ideations, endorsing suicidal thoughts, less focused on them today Perceptions: Patient denies any visual hallucinations and denies any auditory hallucinations Though content/process: There is no evidence of any delusional thought content and thought process is linear and goal-directed. Focus on her medications and stressors. Memory and concentration: AOX3, grossly intact for the purposes of this session Judgment and insight: chronically poor, Improving mildly Assessment: Bipolar disorder, currently depressed social anxiety Cannabis use disorder Nicotine dependence Plan: -Patient continues to meet criteria for inpatient psychiatric admission for symptom stabilization and safety. Patient has signed adult voluntary form and medication consent and was placed in patient's chart. -Medications: Prozac 60 mg daily for mood/anxiety, Zyprexa 10 mg BID for mood stabilization/insomnia. continue with AED keppra and topomax at her home dose. vistaril 50 mg tid for anxiety. decrease Klonopin 0.5 mg qid prn for anxiety and will attempt to cut back further as patient may possibly be abusing this and is impulsive and high risk for overdose. increase trazodone 150 mg qhs for sleep/mood, increase buspar 30 mg bid for anxiety. -When necessary Ativan and Haldol for agitation/aggression. -NRT - nicotine patch -SW on board for discharge planning. Encouraged the patient to participate in milieu. attempted to call outpatient psychiatrist and neurologist however got no answer and no call back. patient is still endorsing suicidal thoughts and stating that she is depressed and in danger of overdosing or harming herself. continue with finger foods and monitoring.
[2022-10-18] MEDS ORDERED: OLANZapine 7.5 MG TAB PO PRN (11:37)
[2022-10-18] MEDS ORDERED: OLANZapine 10 MG VIAL IM PRN (11:37)
[2022-10-18] MEDS: LITHIUM CARBONATE 300 MG CAP PO SCH ×2 (11:42→20:19)
[2022-10-18] MEDS: clonazePAM 0.5 MG TAB PO PRN ×3 (13:56→23:53)
[2022-10-18] MEDS ORDERED: traZODone HCL 50 MG TAB PO SCH (21:00)
[2022-10-18] MEDS: ALBUTEROL INHALER 60 PUFF/8 GM INHALER (MHU) INHALATION PRN (23:06)
[2022-10-19 07:08] VITALS: RESP 16
[2022-10-19] MEDS: FLUoxetine HCL 20 MG CAP PO SCH (08:29)
[2022-10-19] MEDS: NICOTINE 14MG/24HR PATCH TRANSDERM SCH (08:29)
[2022-10-19] MEDS: busPIRone HCl 10 MG TAB PO SCH ×2 (08:29→20:05)
[2022-10-19] MEDS: TOPIRAMATE 100 MG TAB PO SCH ×2 (08:29→20:05)
[2022-10-19] MEDS: LITHIUM CARBONATE 300 MG CAP PO SCH ×2 (08:30→20:04)
[2022-10-19] MEDS: OLANZapine 10 MG TAB PO SCH ×2 (08:30→20:04)
[2022-10-19] MEDS: clonazePAM 0.5 MG TAB PO PRN ×3 (08:30→20:07)
[2022-10-19] MEDS: hydrOXYzine pamoate 25 MG CAP PO SCH ×3 (08:30→20:04)
[2022-10-19] MEDS: TRELEGY ELLIPTA INHALATION SCH (09:15)
[2022-10-19] MEDS ORDERED: FLUoxetine HCL 20 MG CAP PO STA (10:27)
--- NOTE | 2022-10-19 10:34 | P.PN ---
Progress Note - Text Progress Note Date: 10/19/22 Interval history: Patient was seen today sitting in a group today and was agreeable to speak with commercial real estate underwriter. Patient states that she is doing a bit better today with regards to her mood and anxiety. She appeared to be calmer today during conversation. She continued to be focused on her Klonopin and states that she wants that increased. We spoke about the drawbacks of this and the potential for overdose or possibly abuse. She claims that she has been going to groups and attending to participate. She appears to be more future oriented today. She claims that she is still feeling a bit depressed however did state that she spoke with her father over the phone which made her feel better. Claims that she did not get good rest last night with sleep. He was agreeable to have her trazodone increased once again. She claims that she is not having suicidal thoughts today. She was requesting to have her being taken off of finger foods and faxed to regular diet. denying any AH or Vh at this time. Denying any side effects. Denies any homicidal ideations. Mental Status Exam: General Appearance: Patient appears to be overweight, improving in appearance, stated age is alert, directable, attempts more to cooperate today. Behavior: Patient is calmly seated without any agitated behavior. Speech: Patient's speech is fluent and nonpressured. Mood/Affect: Mood is continues to endorse depression, improving mildly, affect is congruent Suicidality/Homicidality: Patient denies having any homicidal ideations, endorsing suicidal thoughts, less focused on them today Perceptions: Patient denies any visual hallucinations and denies any auditory hallucinations Though content/process: There is no evidence of any delusional thought content and thought process is linear and goal-directed. Focus on her medications specifically her Klonopin and increasing. Memory and concentration: AOX3, grossly intact for the purposes of this session Judgment and insight: chronically poor, Improving mildly Assessment: Bipolar disorder, currently depressed borderline personality disorder social anxiety Cannabis use disorder Nicotine dependence Plan: -Patient continues to meet criteria for inpatient psychiatric admission for symptom stabilization and safety. Patient has signed adult voluntary form and medication consent and was placed in patient's chart. -Medications: increase Prozac 80 mg daily for mood/anxiety, Zyprexa 10 mg BID for mood stabilization/insomnia. continue with AED keppra and topomax at her home dose. vistaril 50 mg tid for anxiety. continue Klonopin 0.5 mg qid prn for anxiety as patient may possibly be abusing this and is impulsive and high risk for overdose. increase trazodone 200 mg qhs for sleep/mood, buspar 30 mg bid for anxiety. -When necessary Ativan and Haldol for agitation/aggression. -discontinue finger foods, switch back onto regular diet -NRT - nicotine patch -SW on board for discharge planning. Encouraged the patient to participate in milieu. discontinue with finger foods today and will observe patient for one more night as medications are adjusted and prepare for discharge tomorrow back home.
[2022-10-19] MEDS: ALBUTEROL INHALER 60 PUFF/8 GM INHALER (MHU) INHALATION PRN (11:36)
[2022-10-19] MEDS: ACETAMINOPHEN TAB 325 MG TAB PO PRN ×2 (11:36→20:02)
[2022-10-19] MEDS ORDERED: traZODone HCL 100 MG TAB PO SCH (21:00)
[2022-10-20] MEDS: NICOTINE 14MG/24HR PATCH TRANSDERM SCH (08:18)
[2022-10-20] MEDS: OLANZapine 10 MG TAB PO SCH (08:18)
[2022-10-20] MEDS: TRELEGY ELLIPTA INHALATION SCH (08:18)
[2022-10-20] MEDS: hydrOXYzine pamoate 25 MG CAP PO SCH (08:18)
[2022-10-20] MEDS: busPIRone HCl 10 MG TAB PO SCH (08:19)
[2022-10-20] MEDS: TOPIRAMATE 100 MG TAB PO SCH (08:20)
[2022-10-20] MEDS: LITHIUM CARBONATE 300 MG CAP PO SCH (08:20)
[2022-10-20] MEDS: clonazePAM 0.5 MG TAB PO PRN ×2 (08:21→12:43)
[2022-10-20] MEDS ORDERED: FLUoxetine HCL 20 MG CAP PO SCH (09:00)
[2022-10-20 11:16] VITALS: BP 94/62; PULSE 74; TEMP 97.6
--- NOTE | 2022-10-20 11:46 | P.DS ---
Providers Date of admission: 10/12/22 00:33 Expected date of discharge: 10/20/22 Attending physician: Jose Eduardo Wu MD Consults: 10/12/22 00:43 Consult Physician Routine Consulting Provider: Juan Antonio Villa Consult Reason/Comments: History and physical and medical management Do you want consulting provider notified?: Yes, Notify in am Primary care physician: Starr Singh - Discharge Diagnosis(es) (1) Bipolar disorder with current episode depressed Current Visit: Yes Status: Acute Priority: High (2) Borderline personality disorder Current Visit: Yes Status: Acute Priority: High (3) Social anxiety disorder Current Visit: Yes Status: Acute Priority: High (4) Cannabis use disorder Current Visit: Yes Status: Acute Priority: Medium (5) Nicotine dependence Current Visit: Yes Status: Acute Priority: Low Hospital Course: Admission HPI: Admission note was completed by appeals writer "Patient is a 46-year-old female, currently , lives alone in apartment, collecting survivor's spousal benefits. no kids. Patient presented to the hospital yesterday complaining of suicidal ideations and depression. Patient was admitted voluntarily to mental health unit. Patient was seen today wondering always agreeable to speak to appeals writer in the office. Patient appeared to be disheveled appearance and older than stated age. She claims that she recently got out of [facility] last month and states that "they changed my medications" and states that she was feeling much worse after leaving. She claims that she has been feeling more suicidal lately and depressed. She also claims that she was about to overdose at home however had a change of heart and came to the hospital. She states that she's been having poor appetite and poor sleep as well. She states that she's been following up with a neurologist and is currently on Topamax and also Keppra for her seizures. She claims that she has been having racing thoughts and also flight of ideas lately. Anxiety has been elevated. Claims that she is also avoiding people due to past history of trauma and teasing during school. She states that she is still having suicidal thoughts, no homicidal ideations intent or plan. At this time patient denies any auditory or visual hallucinations. Patient claims that she smokes marijuana and cigarettes daily. Denies any other recreational drug use." Hospital course: Upon admission to the unit patient was directable and agreeable to commence treatment and signed adult voluntary form. Patient got along well with other patients on the unit and followed unit protocol. Patient at times was fairly impulsive and suicidal, once attempting to choke herself in her bed and also had stated that she stole silverware from the dining gregorio in an attempt to harm herself. It did appear that most of the self harming behaviors may have been attention seeking. Patient was compliant with the medications and denied any side effects throughout hospital course. Patient wanted to cut back on her keppra and cut the dose in half on her own taking 750 mg bid for AED. Crossbar Frame Wirer spoke with patients neurology PASSENGER REPRESENTATIVE over the phone Savanna who stated that she will want her to follow up within the next 1-2 weeks in the clinic to commence cutting back the keppraand finding an alternative AED. Cross[employer] Wirer also spoke with patient psychiatrist Dr Moncada over the phone to collaborate treatment and review plan and med changes. Patient was started on back on her home dose of Klonopin however was decreased down to 0.5 mg qid prn for anxiety with a plan to continue slowly tapering down due to patients impulsivity and higher risk for potential overdose. Patient was also started on Zyprexa increased to a dose of 10 mg twice a day for mood adjunct/mood stabilization/insomnia, Prozac was increased to a dose of 80 mg daily for mood/anxiety, Vistaril continued at 50 mg 3 times a day for anxiety, trazodone was increased to a dose of 200 mg daily at bedtime for sleep/mood, BuSpar increased to a dose of 30 mg twice a day for anxiety. Patient spoke of her stressors and engaged in therapy both group and individual. Patient was also seen by medical team for history and physical exam. Patient was seen more on the unit and interacting well with other patients. Throughout the course of the hospitalization patient gradually improved with regards to mood, anxiety, suicidal tendencies and thoughts, sleep and returned back to their baseline level of functioning. On the day of discharge patient denied any suicidal or homicidal ideations intent or plan denied any auditory or visual hallucinations. Patient endorsed wanting to live for her parents and her health. The patient denied any access to guns or weap ons. Patient denied any paranoia and did not endorse any delusions. Patient does have a significant history of substance abuse and was counseled on abstaining from all substances including alcohol and marijuana. Patient was offered however declined inpatient substance-abuse rehab. Patient was also counseled on the medications and need for regular compliance and was encouraged to follow-up with their outpatient appointment for mental health and also for primary care. Prior to discharge a family meeting will be arranged by social services director to answer any questions and ensure safety upon discharge. SW to ensure that mother will be picking her up and will ensure that there are no guns or weapons in the house. Mental status exam: General Appearance: Patient appears to be short in stature, older than stated age is alert, pleasant, and cooperative. Patient is in no acute distress and has improved hygiene and grooming Behavior: Patient is calmly seated without any agitated behavior. Speech: Patient's speech is fluent and nonpressured. Mood/Affect: Patient reports their mood is "good", affect is congruent and euthymic. Suicidality/Homicidality: Patient denies having any suicidal or homicidal ideation intent or plan. Perceptions: Patient denies any auditory or visual hallucinations. Though content/process: There is no evidence of any delusional thought content and thought process is linear and goal-directed. more future oriented Memory and concentration: AOX3, grossly intact for the purposes of this session. Can spell "WORLD" backwards correctly. Judgment and insight: chronically poor/impuslive, however has improved with guarded prognosis Impression: Bipolar depression Borderline personality disorder Social anxiety disorder Cannabis use disorder Nicotine dependence Plan: -Continue with discharge today as patient has improved and stabilized psychiatrically and is not currently an imminent threat to herself and/or others. Patient will remain at chronically elevated risk for harm to self and/or others due to her impulsivity and chronic suicidal thoughts/tendencies. -Continue medications: Prozac 80 mg daily for mood/anxiety, Zyprexa 10 mg twice a day for mood stabilization/mood adjunct/insomnia, Vistaril 50 mg 3 times a day for anxiety, Klonopin will only be given for 3 days for 0.5 mg 4 times a day when necessary for anxiety, trazodone 200 mg daily at bedtime for sleep/mood, BuSpar 30 mg twice a day for anxiety. -Patient was counseled on the need for medication compliance and appropriate follow-up at mental health and also primary care for medical issues. Patient verbalized understanding and agreed. -Social work to arrange for and conduct family meeting to ensure safety upon discharge and answer any questions/concerns. Social work also to arrange for patients follow up appointments with her psychiatrist for psychiatric care along with follow up with primary care provider. -Patient counseled on abstaining from recreational drugs and marijuana and alcohol. Was informed/educated on the adverse effects on their physical and mental health. Patient verbally agreed and understood. Patient was offered substance abuse treatment however declined at this time. -Patient was instructed to return to the hospital or seek immediate medical care if their psychiatric or medical symptoms do worsen or reoccur. Allergies Allergy/AdvReac Type Severity Reaction Status Date / Time No Known Allergies Allergy Verified 10/12/22 01:58 Laboratory Results WBC 8.1 k/uL (3.8-10.6) 10/12/22 09:07 RBC 4.77 m/uL (3.80-5.40) 10/12/22 09:07 Hgb 16.2 gm/dL (11.4-16.0) H 10/12/22 09:07 Hct 49.3 % (34.0-46.0) H 10/12/22 09:07 MCV 103.3 fL (80.0-100.0) H 10/12/22 09:07 MCH 33.9 pg (25.0-35.0) 10/12/22 09:07 MCHC 32.8 g/dL (31.0-37.0) 10/12/22 09:07 RDW 12.5 % (11.5-15.5) 10/12/22 09:07 Plt Count 335 k/uL (150-450) 10/12/22 09:07 MPV 8.4 10/12/22 09:07 Neutrophils % 61 % 10/12/22 09:07 Lymphocytes % 31 % 10/12/22 09:07 Monocytes % 5 % 10/12/22 09:07 Eosinophils % 0 % 10/12/22 09:07 Basophils % 1 % 10/12/22 09:07 Neutrophils # 5.0 k/uL (1.3-7.7) 10/12/22 09:07 Lymphocytes # 2.6 k/uL (1.0-4.8) 10/12/22 09:07 Monocytes # 0.4 k/uL (0-1.0) 10/12/22 09:07 Eosinophils # 0.0 k/uL (0-0.7) 10/12/22 09:07 Basophils # 0.1 k/uL (0-0.2) 10/12/22 09:07 Macrocytosis Slight 10/12/22 09:07 Sodium 142 mmol/L (137-145) 10/13/22 09:52 Potassium 4.5 mmol/L (3.5-5.1) 10/13/22 09:52 Chloride 115 mmol/L (98-107) H 10/13/22 09:52 Carbon Dioxide 18 mmol/L (22-30) L 10/13/22 09:52 Anion Gap 9 mmol/L 10/13/22 09:52 BUN 9 mg/dL (7-17) 10/13/22 09:52 Creatinine 0.63 mg/dL (0.52-1.04) 10/13/22 09:52 Est GFR (CKD-EPI)AfAm >90 (>60 ml/min/1.73 sqM) 10/13/22 09:52 Est GFR (CKD-EPI)NonAf >90 (>60 ml/min/1.73 sqM) 10/13/22 09:52 Glucose 107 mg/dL (74-99) H 10/13/22 09:[address] Glu mg/dL 102 10/16/22 11:15 Hemoglobin A1c 5.2 % (0.0-6.0) 10/16/22 11:15 Calcium 8.8 mg/dL (8.4-10.2) 10/13/22 09:52 Total Bilirubin 0.6 mg/dL (0.2-1.3) 10/13/22 09:52 Conjugated Bilirubin 0.0 mg/dL (0.0-0.3) 10/13/22 09:52 Unconjugated Bilirubin 0.1 mg/dL (0.0-1.1) 10/13/22 09:52 Delta Bilirubin 0.5 mg/dL (0.0-0.2) H 10/13/22 09:52 AST 23 U/L (14-36) 10/13/22 09:52 ALT 15 U/L (4-34) 10/13/22 09:52 Alkaline Phosphatase 66 U/L (38-126) 10/13/22 09:52 Total Protein 7.7 g/dL (6.3-8.2) 10/13/22 09:52 Albumin 4.2 g/dL (3.5-5.0) 10/13/22 09:52 Triglycerides 151.00 mg/dL (0.00-149.00) H 10/13/22 09:52 Cholesterol 250.00 mg/dL (0.00-200.00) H 10/13/22 09:52 LDL Cholesterol, Calc 183.7 mg/dL (0.0-131.0) H 10/13/22 09:52 VLDL Cholesterol, Calc 30.20 mg/dL (5.00-40.00) 10/13/22 09:52 HDL Cholesterol 36.10 mg/dL (40.00-60.00) L 10/13/22 09:52 Cholesterol/HDL Ratio 6.93 Ratio 10/13/22 09:52 TSH 1.460 mIU/L (0.465-4.680) 10/12/22 09:07 Coronavirus (PCR) Not Detected (Not Detectd) 10/11/22 21:25 Vital Signs Temp 97.6 F 10/20/22 08:00 Pulse 74 10/20/22 08:00 Resp 16 10/20/22 08:00 BP 94/62 10/20/22 08:00 Pulse Ox 96 10/20/22 08:00 FiO2 Patient Condition at Discharge: Stable Plan - Discharge Summary Discharge Rx Participant: No New Discharge Prescriptions: New busPIRone HCl [Buspar] 30 mg PO BID 14 Days #42 tab traZODone HCL [Desyrel] 200 mg PO HS 14 Days #28 tab clonazePAM [KlonoPIN] 0.5 mg PO QID PRN 3 Days #12 tab PRN Reason: Anxiety OLANZapine [ZyPREXA] 10 mg PO BID 14 Days #28 tab Nicotine 14Mg/24Hr Patch [Habitrol] 1 patch TRANSDERM DAILY 14 Days patch [place] Carbonate 300 mg PO BID 14 Days #28 cap FLUoxetine HCL [PROzac] 80 mg PO DAILY 14 Days #14 cap levETIRAcetam [Keppra] 750 mg PO BID tab Continue Topiramate [Topamax] 200 mg PO HS Topiramate [Topamax] 400 mg PO DAILY Fluticasone/Umeclidin/Vilanter [Trelegy Ellipta 100-62.5-25] 1 puff INHALATION RT-DAILY hydrOXYzine pamoate 50 mg PO TID 14 Days #14 cap Albuterol Inhaler [Ventolin Hfa Inhaler] 2 puff INHALATION RT-QID PRN PRN Reason: Shortness Of Breath Discontinued levETIRAcetam [Keppra] 1,500 mg PO BID Mirtazapine 45 mg PO HS Perphenazine [Trilafon] 4 mg PO TID clonazePAM [KlonoPIN] 1 mg PO QID Amitriptyline HCl [Elavil] 25 mg PO TID Nicotine 21Mg/24Hr Patch [Habitrol] 1 patch TRANSDERM DAILY PRN PRN Reason: Nicotine Cravings Discharge Medication List Topiramate [Topamax] 200 mg PO HS 05/06/14 [History] Topiramate [Topamax] 400 mg PO DAILY 06/24/20 [History] Albuterol Inhaler [Ventolin Hfa Inhaler] 2 puff INHALATION RT-QID PRN 10/11/22 [History] Fluticasone/Umeclidin/Vilanter [Trelegy Ellipta 100-62.5-25] 1 puff INHALATION RT-DAILY 10/11/22 [History] FLUoxetine HCL [PROzac] 80 mg PO DAILY 14 Days #14 cap 10/20/22 [Rx] [place] Carbonate 300 mg PO BID 14 Days #28 cap 10/20/22 [Rx] Nicotine 14Mg/24Hr Patch [Habitrol] 1 patch TRANSDERM DAILY 14 Days patch 10/20/22 [Rx] OLANZapine [ZyPREXA] 10 mg PO BID 14 Days #28 tab 10/20/22 [Rx] busPIRone HCl [Buspar] 30 mg PO BID 14 Days #42 tab 10/20/22 [Rx] clonazePAM [KlonoPIN] 0.5 mg PO QID PRN 3 Days #12 tab 10/20/22 [Rx] hydrOXYzine pamoate 50 mg PO TID 14 Days #14 cap 10/20/22 [Rx] levETIRAcetam [Keppra] 750 mg PO BID tab 10/20/22 [Rx] traZODone HCL [Desyrel] 200 mg PO HS 14 Days #28 tab 10/20/22 [Rx] Follow up Appointment(s)/Referral(s): Ulices Diez [Other] - As Needed (Susannah at [facility] is your behavioral health welfare case worker. She can be reached at [phone] if you need any assistance with your behavioral health needs. 30/04 Crisis line [phone]) Moiz Moncada(psychiatrist) [Other] - 10/20/22 4:00 pm Starr Singh MD [Primary Care Provider] - 1-2 days Patient Instructions/Handouts: How to Stop Smoking (ED), Bipolar Disorder (DC), Borderline Personality Disorder (DC), Anxiety (GEN) Activity/Diet/Wound Care/Special Instructions: Avoid the use of street drugs and alcohol. Take all prescriptions as presc ribed. When you are in need of refills on your medications, please contact your medical provider and/or outpatient psychiatrist to have this done. Please go to scheduled outpatient appointment for aftercare treatment. If symptoms return or become worse, call the crisis line at and/or go to the nearest emergency room for evaluation. Discharge Disposition: HOME SELF-CARE
== END 2022-10-20 12:54 | disposition home or self-care (01) | DRG 885 ==
LOC: EC 15:41 → 3MHU 10-12 00:33
PROVIDERS: ADMIT Psychiatry & Neurology Psychiatry; ATTEND Psychiatry & Neurology Psychiatry
DX: F31.30 Bipolar disorder, current episode depressed, mild or moderate severity, unspecified (principal); R45.851 Suicidal ideations; F60.3 Borderline personality disorder; G40.909 Epilepsy, unspecified, not intractable, without status epilepticus; Z20.822 Contact with and (suspected) exposure to COVID-19; Z28.310 Unvaccinated for COVID-19; F40.10 Social phobia, unspecified; F12.10 Cannabis abuse, uncomplicated; K21.9 Gastro-esophageal reflux disease without esophagitis; H91.90 Unspecified hearing loss, unspecified ear; G47.00 Insomnia, unspecified; G62.9 Polyneuropathy, unspecified; E66.3 Overweight; Z68.28 Body mass index [BMI] 28.0-28.9, adult; F17.210 Nicotine dependence, cigarettes, uncomplicated; Z71.6 Tobacco abuse counseling; Z79.51 Long term (current) use of inhaled steroids; Z79.899 Other long term (current) drug therapy
CPT/HCPCS: 80053; 80061; 82075; 82248; 83036; 84443; 85025; 87635; 99285

== ENCOUNTER 2023-02-10 16:19 | Inpatient (IN) | payer BC, MEDICAID ==
[2023-02-10] MEDS ORDERED: MAG HYDROX/AL HYDROX/SIMETH 30 ML CUP PO PRN (16:25)
[2023-02-10] MEDS ORDERED: MAGNESIUM HYDROXIDE 2,400 MG/10 ML CUP PO PRN (16:25)
[2023-02-10 17:35] VITALS: RESP 16
[2023-02-10] MEDS: hydrOXYzine pamoate 25 MG CAP PO PRN ×2 (18:37→23:32)
[2023-02-10] MEDS: TOPIRAMATE 100 MG TAB PO SCH (20:42)
[2023-02-10] MEDS: ALBUTEROL INHALER 60 PUFF/8 GM INHALER (MHU) INHALATION PRN (20:46)
[2023-02-10] MEDS ORDERED: OLANZapine 5 MG TAB PO SCH (21:00)
[2023-02-10] MEDS: ACETAMINOPHEN TAB 325 MG TAB PO PRN (22:35)
[2023-02-11] MEDS ORDERED: IPRATROPIUM 0.5 MG/2.5 ML NEBU INHALATION SCH (08:00)
[2023-02-11] MEDS: TOPIRAMATE 100 MG TAB PO SCH ×2 (09:03→20:11)
[2023-02-11] MEDS: NICOTINE 14MG/24HR PATCH TRANSDERM SCH (09:03)
[2023-02-11] MEDS: FLUoxetine HCL 20 MG CAP PO SCH (09:04)
[2023-02-11] MEDS: ALBUTEROL INHALER 60 PUFF/8 GM INHALER (MHU) INHALATION PRN (09:06)
[2023-02-11] MEDS: TIOTROPIUM 2.5 MCG INHALER (MHU) INHALATION SCH (09:09)
[2023-02-11] MEDS: hydrOXYzine pamoate 25 MG CAP PO PRN ×3 (09:09→21:22)
[2023-02-11] MEDS: SYMBICORT 80-4.5 MCG INHALER INHALATION SCH ×2 (10:11→20:10)
--- NOTE | 2023-02-11 10:12 | P.CONS ---
History of Present Illness - Reason for Consult Consult date: 02/11/23 Medical management Requesting physician: James Greene - History of Present Illness This is a 47-year-old female patient currently admitted to the mental health unit for bipolar disorder with depressive episode and suicide attempt. Patient has a past medical history of bipolar and personality disorder along with nicotine use and seizures. At this time patient is in common area denies any acute complaints. Patient denies chest pain or shortness of breath. Patient denies nausea vomiting or diarrhea. Patient denies any urinary burning or frequency. Current vital signs 98.4, heart rate 64 chemistry rate 16, blood pressure 135/59 Review of Systems please refer to HPI otherwise unremarkable Past Medical History Past Medical History: GERD/Reflux, Hearing Disorder / Deafness, Neurologic Disorder, Seizure Disorder Additional Past Medical History / Comment(s): having nausea and diarrhea, EPILEP SY, LAST SEIZURE 12/02/2018, Neuropathy arms & hands, memory issues History of Any Multi-Drug Resistant Organisms: None Reported Past Surgical History: Appendectomy, Hysterectomy, Orthopedic Surgery Additional Past Surgical History / Comment(s): RADIAL NERVE SURG [place]. Past Anesthesia/Blood Transfusion Reactions: No Reported Reaction Smoking Status: Current every day smoker - Past Family History Father Family Medical History: Coronary Artery Disease (CAD) Additional Family Medical History / Comment(s): quadruple cabg, bipolar, ptsd Sister(s) Additional Family Medical History / Comment(s): ETOH bipolar Medications and Allergies Home Medications Medication Instructions Recorded Confirmed Type Topiramate [Topamax] 200 mg PO HS 05/06/14 02/10/23 History Topiramate [Topamax] 400 mg PO DAILY 06/24/20 02/10/23 History Albuterol Inhaler [Ventolin Hfa 2 puff INHALATION RT-QID PRN 10/11/22 02/10/23 History Inhaler] Fluticasone/Umeclidin/Vilanter 1 puff INHALATION RT-DAILY 10/11/22 02/10/23 History [Trelegy Ellipta 100-62.5-25] [place] Carbonate 300 mg PO BID 14 Days #28 cap 10/20/22 02/10/23 Rx hydrOXYzine pamoate 50 mg PO TID 14 Days #14 cap 10/20/22 02/10/23 Rx FLUoxetine HCL [PROzac] 80 mg PO DAILY 02/09/23 02/10/23 History Famotidine [Pepcid] 40 mg PO DAILY 02/09/23 02/10/23 History Magnesium Oxide [Mag-Ox] 500 mg PO DAILY 02/09/23 02/10/23 History OLANZapine [ZyPREXA] 10 mg PO HS 02/09/23 02/10/23 History Valtoco 1 dose NASAL DIRECTED PRN 02/09/23 02/10/23 History busPIRone HCl [Buspar] 20 mg PO BID 02/09/23 02/10/23 History clonazePAM [KlonoPIN] 1 mg PO QID PRN 02/09/23 02/10/23 History traZODone HCL 300 mg PO HS 02/09/23 02/10/23 History Allergies Allergy/AdvReac Type Severity Reaction Status Date / Time No Known Allergies Allergy Verified 02/10/23 19:08 Physical Exam Vitals: Vital Signs Temp Pulse Resp BP 02/10/23 17:35 98.4 F 64 135/59 02/10/23 17:26 98.4 F 64 16 135/59 Intake and Output 02/10/23 02/11/23 02/11/23 22:59 06:59 14:59 Other: Weight 64.864 kg 64.4 kg Head normocephalic Neck supple Lungs clear to auscultation bilaterally no wheezing or crackles Heart regular rate and rhythm S1-S2, no rub or gallop Abdomen is soft nontender nondistended positive bowel sounds no hepatosplenomegaly Extremities no edema Neuro alert and orientated to 3 Assessment and Plan Assessment: Suicide attempt Bipolar with depressive episode Borderline personality disorder History of seizures History of nicotine dependence History of GERD Marijuana use Thank you for this consultation we will continue to follow patient closely throughout stay Time with Patient: Greater than 30 (Greater than 60% of the total time spent in counseling and coordination of care)
[2023-02-11] MEDS ORDERED: TOPIRAMATE 100 MG TAB PO ONE (11:00)
[2023-02-11] MEDS ORDERED: HALOPERIDOL LACTATE 5 MG/ML 1 ML VIAL IM PRN (11:04)
--- NOTE | 2023-02-11 11:06 | P.HP ---
Psychiatric H&P - . H&P Date: 02/11/23 History & Physical: Allergies Allergy/AdvReac Type Severity Reaction Status Date / Time No Known Allergies Allergy Verified 02/10/23 19:08 Vital Signs Temp 98.4 F 02/10/23 17:35 Pulse 64 02/10/23 17:35 Resp 16 02/10/23 17:26 BP 135/59 02/10/23 17:35 Pulse Ox FiO2 Intake & Output 02/10/23 02/11/23 02/11/23 18:59 06:59 18:59 Weight 64.864 kg 02/11/23 09:02 IDENTIFYING DATA: This patient is a , unemployed, 46-year-old female with significant history of bipolar disorder, anxiety, and borderline personality disorder who presented to our hospital on after an intentional over dose on trazodone and Klonopin. HPI: The patient presented to the hospital on 02/08/2023, brought into the hospital by EMS after intentional overdose on trazodone and Klonopin. She was subsequently admitted onto the medical floor for further evaluation and treatment. Psychiatry was consulted to assess the patient for suicidal ideation with an attempt by overdose and resumed patient on Topomax 100 mg BID, Prozac 60 mg daily, Vistaril 50 mg QID PRN and Zyprexa 5 mg qHS. Idanha level was 0.4 on 02/09 at 1340. Patient was most recently hospitalized at [facility] psychiatric unit from 10/12/2022 to 10/20/2022. At the time, she was discharged on Prozac 80 mg daily, Zyprexa 10 mg twice a day, Vistaril 50 mg 3 times a day, Klonopin 0.5mg 4 times a day when necessary, trazodone 200 mg at bedtime, and BuSpar 30 mg twice a day. Currently, her home regimen includes Zyprexa 10 mg daily, BuSpar 20 mg twice a day, lithium 300 mg twice a day, Prozac 80 mg daily, Vistaril 50 mg 3 times a day, Klonopin 1 mg 4 times a day as needed, trazodone 300 mg at bedtime, and Topamax 4 mg in the morning and 200 mg at bedtime. Patient states that she typically takes 2 tablets of trazodone 150 mg at bedtime and Klonopin 1 mg at bedtime. She reports stealing money from "my counselor "and says that she has been feeling remorseful and anxious due to this. As a result, while she was staying with her mother overnight, she took 4 tablets of trazodone 150 mg and Klonopin 3 mg. Afterwards, she reports telling her mother who called 911 to get the patient to the hospital. Patient states that the overdose was impulsive and was not planned. She states that when she is feeling distress, overdosing on medications has become a common mechanism of poor coping. She endorses having low mood at baseline and admits to feeling depressed recently. She claims that her last "manic" episode was in November 2022. Currently, she reports trouble sleeping, low energy and anhedonia. She also states she has been feeling extremely anxious due to her actions. She repeatedly requests to be on "something for anxiety ". She states that Ativan does not work for her and requests to be on Klonopin. However, this provider explained that misuse and abuse of Klonopin precludes her from being prescribed this. She claims to understand but requests to be on an "injection of something" instead. Patient currently denies suicidal ideation although she reports feeling distressed due to her prior actions. She admits to scratching herself on her forearms although no visible lesions are currently. She denies homicidal ideation. She denies access to firearms or weapons. She denies auditory and visual hallucinations. She currently denies constellation of symptoms consistent with gustabo. PSYCH HX: From the patient's previous admission on 10/12/2022, the patient has a history of bipolar disorder which has been diagnosed since the age of 12. She has been on numerous medications in the past including Xanax, Geodon, Elavil, Cymbalta, Remeron, and Lamictal. She has had several hospitalizations and was most recently on our unit in October. The patient has had multiple prior attempts at suicide by overdose. Most recently hospitalized at [facility] psychiatric unit from 10/12/2022 to 10/20/2022. At the time, she was discharged on Prozac 80 mg daily, Zyprexa 10 mg twice a day, Vistaril 50 mg 3 times a day, Klonopin 0.5mg 4 times a day when necessary, trazodone 200 mg at bedtime, and BuSpar 30 mg twice a day. Currently, her home regimen includes Zyprexa 10 mg daily, BuSpar 20 mg twice a day, lithium 300 mg twice a day, Prozac 80 mg daily, Vistaril 50 mg 3 times a day, Klonopin 1 mg 4 times a day as needed, trazodone 300 mg at bedtime, and Topamax 4 mg in the morning and 200 mg at bedtime. PMH: Past Medical History: GERD/Reflux, Hearing Disorder / Deafness, Neurologic Disorder, Seizure Disorder Additional Past Medical History / Comment(s): having nausea and diarrhea, EPILEPSY, LAST SEIZURE 12/02/2018, Neuropathy arms & hands, memory issues History of Any Multi-Drug Resistant Organisms: None Reported Past Surgical History: Appendectomy, Hysterectomy, Orthopedic Surgery Additional Past Surgical History / Comment(s): RADIAL NERVE SURG CHADWICK. Past Anesthesia/Blood Transfusion Reactions: No Reported Reaction Smoking Status: Current every day smoker ALLERGIES: NKDA SUBSTANCE HX: Tobacco: 2ppd. She reports no alcohol use. Cannabis: 1 joint 3 times daily Denies using other substances SOCIAL/LEGAL HX: Social history was obtained via chart review and in speaking with patient. The patient was born and raised in [place], [place]. She completed high school. She is currently collecting survival spouse benefits. She is currently . She has no children. She lives alone in an apartment with her cat. FAM PSYCH HX: Reportedly, the patient has family members on her father's side who are bipolar. MENTAL STATUS EXAM: General Appearance: Patient appears to be older than stated age, alert, wearing street clothing. Disheveled Behavior: Patient is slightly restless Speech: Patient's speech is fluent and responsive Mood/Affect: Patient reports their mood is "anxious", affect is congruent. Suicidality/Homicidality: Intermittent suicidal ideation. She denies any homicidal ideation. Perceptions: Denies auditory and visual hallucinations Though content/process: No delusions but patient is fixated on medication management Memory and concentration: A&O 4. Fair concentration to interview Judgment and insight: poor and impulsive STRENGTHS/WEAKNESSES: Strength is resilience. Weakness is poor coping mechanism. INTELLECT: average IMPRESSIONS: Bipolar disorder, depressive episode with anxious distress Borderline personality disorder Cannabis use disorder Nicotine dependence PLAN: -Patient is admitted under voluntary status to MHU for stabilization of psychiatric symptoms and safety. Patient signed adult voluntary form and medication consent and is placed in patient's chart. -Medications : Resume Topamax 400 mg and 200 mg for seizures Decrease Prozac to 60 mg by mouth daily for mood Resume Zyprexa at 10 mg by mouth at bedtime for mood/sleep augmentation Resume Buspar 10 mg BID for anxiety Resume Idanha 300 mg BID for mood stabilization Vistaril 50 mg by mouth every 6 hours when necessary for anxiety -Do not agree with long-term treatment with benzodiazepine in this patient with hx of impulsive abuse - Haldol PRN for agitation - NRT -Patient was counselled on substance abuse and desired to cut back on use. Motivational interviewing. -Patient was informed of the risks, benefits and side effects of the medication and patient verbally consented to taking the medications. Patient signed med consent form and was placed in chart. -Internal Medicine consult to perform medical evaluation and physical. -SW on board for discharge planning. Encourage patient to participate in groups to work on coping skills. 02/11/23 10:20
[2023-02-11] MEDS: haloperidoL 5 MG TAB PO PRN ×2 (14:18→21:23)
[2023-02-11] MEDS: OLANZapine 10 MG TAB PO SCH (20:11)
[2023-02-11] MEDS: busPIRone HCl 10 MG TAB PO SCH (20:11)
[2023-02-11] MEDS: LITHIUM CARBONATE 300 MG CAP PO SCH (20:11)
[2023-02-11] MEDS: ACETAMINOPHEN TAB 325 MG TAB PO PRN (21:22)
[2023-02-12] MEDS: ALBUTEROL INHALER 60 PUFF/8 GM INHALER (MHU) INHALATION PRN (08:01)
[2023-02-12] MEDS: NICOTINE 14MG/24HR PATCH TRANSDERM SCH (08:01)
[2023-02-12] MEDS: TIOTROPIUM 2.5 MCG INHALER (MHU) INHALATION SCH (08:01)
[2023-02-12] MEDS: SYMBICORT 80-4.5 MCG INHALER INHALATION SCH ×2 (08:02→20:34)
[2023-02-12] MEDS: FLUoxetine HCL 20 MG CAP PO SCH (08:04)
[2023-02-12] MEDS: busPIRone HCl 10 MG TAB PO SCH ×3 (08:04→20:35)
[2023-02-12] MEDS: LITHIUM CARBONATE 300 MG CAP PO SCH ×2 (08:04→20:35)
[2023-02-12] MEDS: TOPIRAMATE 100 MG TAB PO SCH ×2 (08:04→20:35)
--- NOTE | 2023-02-12 10:12 | P.PN ---
Progress Note - Text Progress Note Date: 02/12/23 Interval History: Patient was seen resting in her room and was directable and agreeable to speak with loan underwriter in the office. Currently, the patient is reporting difficulty with sleep and high anxiety. She states that the reason she overdosed was because her therapist who leant her his debit card with the intention of her withdrawing only 20 dollars caught her stealing 200 dollars multiple times and has threatened her family with a charge of $6000. She states she is extremely anxious about her situation. She reports that she has been spending money on "weed everyday" in order to cope with her inability to do anything due to her seizure disorder and neuropathy that prevents her from driving or going places. She is currently denying any suicidal or homicidal ideation, intention, and/or plan. She is currently denying any auditory or visual hallucinations. She reports no paranoia or other delusions. She reports no side effects or medication and has been adherent. Mental Status Exam: General Appearance: Patient appears to be stated age is alert, directable, and cooperative. Behavior: Patient is calmly seated without any agitated behavior. Speech: Patient's speech is fluent and nonpressured. Mood/Affect: Mood is "very nervous." Affect is anxious however euthymic. Suicidality/Homicidality: Patient denies having any suicidal or homicidal ideation intent or plan. Perceptions: Patient denies any visual hallucinations and denies any auditory hallucinations Though content/process: Fixated on medication management. Memory and concentration: AOX3, grossly intact for the purposes of this session Judgment and insight: Improving mildly Vital Signs Temp 97.7 F 02/12/23 06:28 Pulse 52 L 02/12/23 06:28 Resp 16 02/12/23 06:28 BP 119/70 02/12/23 06:28 Pulse Ox 97 02/12/23 06:28 FiO2 Intake & Output 02/11/23 02/12/23 02/12/23 18:59 06:59 18:59 Weight 64.4 kg Assessment Bipolar disorder, depressive episode with anxious distress Borderline personality disorder Cannabis use disorder Nicotine dependence Plan: -Patient continues to meet criteria for inpatient psychiatric admission for symptom stabilization and safety. Patient has signed adult voluntary form and medication consent and was placed in patient's chart. -Medications: Resume Topamax 400 mg and 200 mg for seizures Continue Prozac 60 mg by mouth daily for depression Resume Zyprexa at 10 mg by mouth at bedtime for mood/sleep augmentation Increase BuSpar to 20 mg by mouth 3 times a day for anxiety Resume Basye 300 mg BID for mood stabilization Vistaril 50 mg by mouth every 6 hours when necessary for anxiety -When necessary Haldol for agitation/aggression. -NRT - nicotine patch -SW on board for discharge planning. Encouraged the patient to participate in milieu.
[2023-02-12] MEDS: hydrOXYzine pamoate 25 MG CAP PO PRN ×3 (10:20→22:18)
[2023-02-12] MEDS: OLANZapine 10 MG TAB PO SCH (20:35)
[2023-02-12] MEDS: haloperidoL 5 MG TAB PO PRN (20:36)
[2023-02-12] MEDS: ACETAMINOPHEN TAB 325 MG TAB PO PRN (22:18)
[2023-02-13 06:39] VITALS: BP 100/59; PULSE 56; TEMP 98.2
[2023-02-13] MEDS: NICOTINE 14MG/24HR PATCH TRANSDERM SCH (07:54)
[2023-02-13] MEDS: TOPIRAMATE 100 MG TAB PO SCH (07:54)
[2023-02-13] MEDS: LITHIUM CARBONATE 300 MG CAP PO SCH (07:55)
[2023-02-13] MEDS: FLUoxetine HCL 20 MG CAP PO SCH (07:55)
[2023-02-13] MEDS: busPIRone HCl 10 MG TAB PO SCH (07:55)
[2023-02-13] MEDS: SYMBICORT 80-4.5 MCG INHALER INHALATION SCH (07:55)
[2023-02-13] MEDS: TIOTROPIUM 2.5 MCG INHALER (MHU) INHALATION SCH (07:56)
[2023-02-13] MEDS: ALBUTEROL INHALER 60 PUFF/8 GM INHALER (MHU) INHALATION PRN (08:59)
[2023-02-13] MEDS: haloperidoL 5 MG TAB PO PRN (09:00)
--- NOTE | 2023-02-13 11:45 | P.DS ---
Providers Date of admission: 02/10/23 16:19 Expected date of discharge: 02/13/23 Attending physician: Alessandro Sanchez MD Consults: 02/10/23 16:25 Consult Physician Routine Consulting Provider: Juan Antonio Villa Consult Reason/Comments: medical management Do you want consulting provider notified?: Yes 02/10/23 16:45 Consult Physician Routine Consulting Provider: Juan Antonio Villa Consult Reason/Comments: medical management Do you want consulting provider notified?: Already Contacted Primary care physician: Starr Singh - Discharge Diagnosis(es) (1) Bipolar disorder with current episode depressed Current Visit: Yes Status: Acute Priority: High (2) Borderline personality disorder Current Visit: Yes Status: Acute Priority: High (3) Cannabis use disorder Current Visit: Yes Status: Chronic Priority: Medium (4) Nicotine dependence Current Visit: Yes Status: Chronic Priority: Low Hospital Course: Admission HPI: Initial psychiatric interview was completed by Dr. Greene on 02/11/2023 who wrote: "This patient is a , unemployed, 46-year-old female with significant history of bipolar disorder, anxiety, and borderline personality disorder who presented to our hospital on after an intentional overdose on trazodone and Klonopin. HPI: The patient presented to the hospital on 02/08/2023, brought into the hospital by EMS after intentional overdose on trazodone and Klonopin. She was subsequently admitted onto the medical floor for further evaluation and treatment. Psychiatry was consulted to assess the patient for suicidal ideation with an attempt by overdose and resumed patient on Topomax 100 mg BID, Prozac 60 mg daily, Vistaril 50 mg QID PRN and Zyprexa 5 mg qHS. [place] level was 0.4 on 02/09 at 1340. Patient was most recently hospitalized at [facility] psychiatric unit from 10/12/2022 to 10/20/2022. At the time, she was discharged on Prozac 80 mg daily, Zyprexa 10 mg twice a day, Vistaril 50 mg 3 times a day, Klonopin 0.5mg 4 times a day when necessary, trazodone 200 mg at bedtime, and BuSpar 30 mg twice a day. Currently, her home regimen includes Zyprexa 10 mg daily, BuSpar 20 mg twice a day, lithium 300 mg twice a day, Prozac 80 mg daily, Vistaril 50 mg 3 times a day, Klonopin 1 mg 4 times a day as needed, trazodone 300 mg at bedtime, and Topamax 4 mg in the morning and 200 mg at bedtime. Patient states that she typically takes 2 tablets of trazodone 150 mg at bedtime and Klonopin 1 mg at bedtime. She reports stealing money from "my counselor "and says that she has been feeling remorseful and anxious due to this. As a result, while she was staying with her mother overnight, she took 4 tablets of trazodone 150 mg and Klonopin 3 mg. Afterwards, she reports telling her mother who called 911 to get the patient to the hospital. Patient states that the overdose was impulsive and was not planned. She states that when she is feeling distress, overdosing on medications has become a common mechanism of poor coping. She endorses having low mood at baseline and admits to feeling depressed recently. She claims that her last "manic" episode was in November 2022. Currently, she reports trouble sleeping, low energy and anhedonia. She also states she has been feeling extremely anxious due to her actions. She repeatedly requests to be on "something for anxiety ". She states that Ativan does not work for her and requests to be on Klonopin. However, this provider explained that misuse and abuse of Klonopin precludes her from being prescribed this. She claims to understand but requests to be on an "injection of something" instead. Patient currently denies suicidal ideation although she reports feeling distressed due to her prior actions. She admits to scratching herself on her forearms although no visible lesions are currently. She denies homicidal ideation. She denies access to firearms or weapons. She denies auditory and visual hallucinations. She currently denies constellation of symptoms consistent with gustabo." Hospital course: Upon admission to the unit patient was initially endorsing anxiety, restlessness, and intermittent suicidal ideation. Patient was however directable and agreeable to commence treatment. Patient got along well with other patients on the unit and followed unit protocol. Patient was compliant with the medications and denied any side effects throughout hospital course. Patient was started on or homicidal ideation regimen of Topamax for seizures, Zyprexa, BuSpar, and lithium. Prozac was decreased as it appeared to be supratherapeutic in terms of dosing. The patient's BuSpar was increased to address her elevated anxiety. Patient spoke of her stressors and engaged in therapy both group and individual. Patient was also seen by medical team for history and physical exam. Throughout the course of the hospitalization patient gradually improved with regards to her mood, anxiety, and sleep. She became future oriented with improved insight and judgment. On the day of discharge patient denied any suicidal or homicidal ideations intent or plan denied any auditory or visual hallucinations. Patient endorsed wanting to live for his health and family. The patient denied any access to guns or weapons. Patient denied any paranoia and did not endorse any delusions. Patient does have a significant history of substance abuse however was counseled on abstaining from all substances including tobacco, alcohol, marijuana, and illicit drugs. Patient was offered however declined inpatient substance-abuse rehab. However, she does express interest in going to long-term rehab at the suggestion of her mother. She is looking at a 90 day rehab in [place]. Patient was also counseled on the medicatio ns and need for regular compliance and was encouraged to follow-up with their outpatient appointment for mental health and also for primary care. Prior to discharge a family meeting will be arranged by social sciences chair to answer any questions and ensure safety upon discharge. She reports no medical issues or concerns. She denies any chest pain, short of breath, palpitations, involuntary muscle movements, or any other concerns medically. Mental status exam: General Appearance: Patient appears to be stated age is alert, pleasant, and cooperative. Patient is in no acute distress and has fair hygiene and grooming Behavior: Patient is calmly seated without any agitated behavior. Speech: Patient's speech is fluent and nonpressured. Mood/Affect: Patient reports their mood is "much better", affect is congruent and euthymic to bright. Suicidality/Homicidality: Patient denies having any suicidal or homicidal ideation intent or plan. Perceptions: Patient denies any auditory or visual hallucinations. Though content/process: There is no evidence of any delusional thought content and thought process is linear and goal-directed. She is future oriented. Memory and concentration: AOX3, grossly intact for the purposes of this session. Can spell "WORLD" backwards correctly. Judgment and insight: Improved with guarded prognosis Impression: Bipolar 2 Disorder, depressive episode Borderline personality disorder Cannabis use disorder Nicotine dependence Plan: -Continue with discharge today as patient has improved and stabilized psychiatrically and is not currently an imminent threat to herself and/or others. Patient remains at chronically elevated risk due to her poor ego integrity, impulsivity, and prior attempts at overdose. -Continue medications: [place] 300 mg by mouth twice a day for mood stabilization Zyprexa 10 mg daily at bedtime for mood stabilization BuSpar 20 mg by mouth 3 times a day for anxiety Prozac 60 mg by mouth daily for depression/anxiety -Patient was counseled on the need for medication compliance and appropriate follow-up at mental health and also primary care for medical issues. Patient verbalized understanding and agreed. -Social work to arrange for and conduct family meeting to ensure safety upon discharge and answer any questions/concerns. Social work also to arrange for patients follow up appointments with [facility] in [place] for psychiatric care along with follow up with primary care provider. -Patient counseled on abstaining from recreational drugs and marijuana and alcohol. Was informed/educated on the adverse effects on their physical and mental health. Patient verbally agreed and understood. Patient was offered substance abuse treatment however declined at this time.] -Patient was instructed to return to the hospital or seek immediate medical care if their psychiatric or medical symptoms do worsen or reoccur. -Psychoeducation and supportive therapy provided to patient. Risks and benefits of pharmacological treatment versus the risks and benefits of nontreatment weight and discussed. Informed consent discussion held. Common side effects of psychotropics discussed such as, but not limited to headache, GI disturbance, sexual dysfunction, movement disorders, sedation, and orthostatic hypotension. Life threatening and blackbox warnings of prescribed medications also discussed. Potential risks of operating a vehicle or heavy machinery discussed with patient at length. Advised on importance of compliance and a reliable and responsible manner. Patient advised to review FDA consumer labeling of all med ications prior to taking. Patient verbalized understanding of potential risks, and agrees with current treatment plan. Patient advised to medically contact physician/emergency personnel if any acute changes in condition occur. Vital Signs Temp 98.2 F 02/13/23 06:38 Pulse 56 L 02/13/23 06:38 Resp 16 02/13/23 06:38 BP 100/59 02/13/23 06:38 Pulse Ox 95 02/13/23 06:38 FiO2 Allergies Allergy/AdvReac Type Severity Reaction Status Date / Time No Known Allergies Allergy Verified 02/10/23 19:08 Patient Condition at Discharge: Stable Plan - Discharge Summary Discharge Rx Participant: No New Discharge Prescriptions: New [place] Carbonate 300 mg PO BID 15 Days #30 cap OLANZapine [ZyPREXA] 10 mg PO HS 15 Days #15 tab busPIRone HCl [Buspar] 20 mg PO TID 15 Days #45 tab FLUoxetine HCL [PROzac] 60 mg PO DAILY 15 Days #45 cap Continue Topiramate [Topamax] 200 mg PO HS Topiramate [Topamax] 400 mg PO DAILY Fluticasone/Umeclidin/Vilanter [Trelegy Ellipta 100-62.5-25] 1 puff INHA LATION RT-DAILY Famotidine [Pepcid] 40 mg PO DAILY Valtoco 1 dose NASAL DIRECTED PRN PRN Reason: Seizures Albuterol Inhaler [Ventolin Hfa Inhaler] 2 puff INHALATION RT-QID PRN PRN Reason: Shortness Of Breath Discontinued hydrOXYzine pamoate 50 mg PO TID 14 Days #14 cap Magnesium Oxide [Mag-Ox] 500 mg PO DAILY traZODone HCL 300 mg PO HS OLANZapine [ZyPREXA] 10 mg PO HS FLUoxetine HCL [PROzac] 80 mg PO DAILY [place] Carbonate 300 mg PO BID 14 Days #28 cap clonazePAM [KlonoPIN] 1 mg PO QID PRN PRN Reason: Anxiety busPIRone HCl [Buspar] 20 mg PO BID Discharge Medication List Topiramate [Topamax] 200 mg PO HS 05/06/14 [History] Topiramate [Topamax] 400 mg PO DAILY 06/24/20 [History] Albuterol Inhaler [Ventolin Hfa Inhaler] 2 puff INHALATION RT-QID PRN 10/11/22 [History] Fluticasone/Umeclidin/Vilanter [Trelegy Ellipta 100-62.5-25] 1 puff INHALATION RT-DAILY 10/11/22 [History] Famotidine [Pepcid] 40 mg PO DAILY 02/09/23 [History] Valtoco 1 dose NASAL DIRECTED PRN 02/09/23 [History] FLUoxetine HCL [PROzac] 60 mg PO DAILY 15 Days #45 cap 02/13/23 [Rx] [place] Carbonate 300 mg PO BID 15 Days #30 cap 02/13/23 [Rx] OLANZapine [ZyPREXA] 10 mg PO HS 15 Days #15 tab 02/13/23 [Rx] busPIRone HCl [Buspar] 20 mg PO TID 15 Days #45 tab 02/13/23 [Rx] Follow up Appointment(s)/Referral(s): Raj Thomas [Outside] - 02/14/23 8:00 am (with Hakeem) [facility] [NON-STAFF] - 1 Week Patient Instructions/Handouts: How to Stop Smoking (DC), Depression (DC) Activity/Diet/Wound Care/Special Instructions: Avoid the use of street drugs and alcohol. Take all medications as prescribed. When you are in need of refills on your medications, please contact your medical provider and/or outpatient psychiatrist to have this done. Please go to scheduled outpatient appointments for aftercare treatment. If symptoms return or become worse, call the crisis line at and/or go to the nearest emergency room for evaluation. [facility] outpatient skilled nursing case manager, Susannah [phone]. [facility] 24 hour line, . Discharge Disposition: HOME SELF-CARE
== END 2023-02-13 12:27 | disposition home or self-care (01) | DRG 885 ==
LOC: 3MHU 16:19
PROVIDERS: ADMIT Psychiatry & Neurology Psychiatry; ATTEND Psychiatry & Neurology Psychiatry
DX: F31.81 Bipolar II disorder (principal); F41.9 Anxiety disorder, unspecified; F60.3 Borderline personality disorder; G40.909 Epilepsy, unspecified, not intractable, without status epilepticus; G62.9 Polyneuropathy, unspecified; H91.90 Unspecified hearing loss, unspecified ear; T43.212A Poisoning by selective serotonin and norepinephrine reuptake inhibitors, intentional self-harm, initial encounter; F12.10 Cannabis abuse, uncomplicated; F17.210 Nicotine dependence, cigarettes, uncomplicated; Z79.899 Other long term (current) drug therapy; F43.10 Post-traumatic stress disorder, unspecified; K21.9 Gastro-esophageal reflux disease without esophagitis

== ENCOUNTER 2024-07-12 12:39 | Emergency (ER) | payer BC, OTHER ==
[2024-07-12 12:51] VITALS: TEMP 97.9
[2024-07-12] MEDS: SODIUM CHLORIDE 0.9% 500 ML 500 ML IV ONE (12:55)
[2024-07-12 12:59] LABS: Glucose,Whole Blood 101 mg/dL (70-110)
--- NOTE | 2024-07-12 13:08 | ED ---
General Adult HPI - General Chief complaint: Altered Mental Status Stated complaint: AMS Time Seen by Provider: 07/12/24 12:41 Source: patient, RN notes reviewed, old records reviewed Mode of arrival: EMS Limitations: no limitations - History of Present Illness Initial comments: 48-year-old female presenting with altered mental status. Patient apparently had smoked marijuana just prior to becoming altered. She does use marijuana frequently but this was a new type or strain of marijuana. Patient is able to answer simple questions. She had stable vitals during transport. No reported focal deficits, no trauma reported. - Related Data Home Medications Medication Instructions Recorded Confirmed Topiramate [Topamax] 400 mg PO HS 06/24/20 07/12/24 Albuterol Inhaler [Ventolin Hfa 2 puff INHALATION RT-QID PRN 10/11/22 07/12/24 Inhaler] Fluticasone/Umeclidin/Vilanter 1 puff INHALATION RT-DAILY 10/11/22 07/12/24 [Trelegy Ellipta 100-62.5-25] Brimonidine Tartrate [Alphagan P 1 drops BOTH EYES BID 07/12/24 07/12/24 0.2% Ophth Soln] Dorzolamide 2% [Trusopt 2%] 1 drops BOTH EYES TID 07/12/24 07/12/24 FLUoxetine HCL [PROzac] 40 mg PO DAILY 07/12/24 07/12/24 Magnesium Oxide [Magnesium] 500 mg PO DAILY 07/12/24 07/12/24 clonazePAM [KlonoPIN] 1 mg PO BID 07/12/24 07/12/24 diazePAM [Valtoco] 1 dose NASAL DIRECTED PRN 07/12/24 07/12/24 haloperidoL [Haldol] 5 mg PO DAILY 07/12/24 07/12/24 hydrOXYzine pamoate [Vistaril] 50 mg PO TID 07/12/24 07/12/24 traZODone HCL [Desyrel] 200 mg PO HS 07/12/24 07/12/24 Previous Rx's Medication Instructions Recorded [place] Carbonate 300 mg PO BID 15 Days #30 cap 02/13/23 busPIRone HCl [Buspar] 20 mg PO TID 15 Days #45 tab 02/13/23 Allergies Allergy/AdvReac Type Severity Reaction Status Date / Time No Known Allergies Allergy Verified 07/12/24 13:57 Review of Systems ROS Statement: Those systems with pertinent positive or pertinent negative responses have been documented in the HPI. ROS Other: All systems not noted in ROS Statement are negative. Past Medical History Past Medical History: GERD/Reflux, Hearing Disorder / Deafness, Neurologic Disorder, Seizure Disorder Additional Past Medical History / Comment(s): having nausea and diarrhea, EPILEPSY, LAST SEIZURE 12/02/2018, Neuropathy arms & hands, memory issues History of Any Multi-Drug Resistant Organisms: None Reported Past Surgical History: Appendectomy, Hysterectomy, Orthopedic Surgery Additional Past Surgical History / Comment(s): RADIAL NERVE SURG [place]. Past Anesthesia/Blood Transfusion Reactions: No Reported Reaction Past Psychological History: Anxiety, Bipolar, Depression Smoking Status: Current every day smoker Past Drug Use History: Marijuana - Past Family History Father Family Medical History: Coronary Artery Disease (CAD) Additional Family Medical History / Comment(s): quadruple cabg, bipolar, ptsd Sister(s) Additional Family Medical History / Comment(s): ETOH bipolar General Exam Limitations: no limitations General appearance: in no apparent distress, appears intoxicated, lethargic Head exam: Present: atraumatic, normocephalic Eye exam: Present: normal appearance, PERRL, EOMI Respiratory exam: Present: normal lung sounds bilaterally. Absent: respiratory distress Cardiovascular Exam: Present: regular rate, normal rhythm GI/Abdominal exam: Present: soft. Absent: distended, tenderness Extremities exam: Present: normal inspection, normal capillary refill Neurological exam: Present: oriented X3, CN II-XII intact. Absent: motor sensory deficit Skin exam: Present: warm, dry, intact Course Vital Signs 07/12/24 07/12/24 07/12/24 12:40 13:34 14:06 Temperature 97.9 F Pulse Rate 60 57 L 64 Respiratory 14 14 16 Rate Blood Pressure 115/69 107/65 107/61 O2 Sat by Pulse 96 95 94 L Oximetry Medical Decision Making - Medical Decision Making Was pt. sent in by a medical professional or institution (, PA, CERTIFIED MASTER SAFECRACKER, urgent care, hospital, or care home...) When possible be specific @ -No Did you speak to anyone other than the patient for history (EMS, parent, family, police, friend...)? What history was obtained from this source @ -No Did you review nursing and triage notes (agree or disagree)? Why? @ -I reviewed and agree with nursing and triage notes Were old charts reviewed (outside hosp., previous admission, EMS record, old EKG, old radiological studies, urgent care reports/EKG's, care home records)? Report findings @ -No old charts were reviewed Differential Altered Mental Status: Hypoglycemia, DKA, hypercapnia, ETOH, overdose, CO poisoning, trauma, myxedema coma, HTN encephalopathy, infection, encephalitis, psychosis, intercranial hemo rrhage, hepatic encephalopathy, meningitis, CVA, this is not meant to be an all- inclusive list EKG interpreted by me (3pts min.). @ -Sinus bradycardia rate of 59, [place] interval 172, QRS duration 96, QTc [address] segment changes X-rays interpreted by me (1pt min.). @ -None done CT interpreted by me (1pt min.). @CT brain negative for intracranial hemorrhage or mass effect U/S interpreted by me (1pt. min.). @ -None done What testing was considered but not performed or refused? (CT, X-rays, U/S, labs)? Why? @ -None What meds were considered but not given or refused? Why? @ -None Did you discuss the management of the patient with other professionals (professionals i.e. , PA, CERTIFIED MASTER SAFECRACKER, lab, RT, psych nurse, social services technician, environmental tech, teacher, placement officer, manager of case)? Give summary @ -No Was smoking cessation discussed for >3mins.? @ -No Was critical care preformed (if so, how long)? @ -No Were there social determinants of health that impacted care today? How? (Homelessness, low income, unemployed, alcoholism, drug addiction, transportation, low edu. Level, literacy, decrease access to med. care, usp, rehab)? @ -No Was there de-escalation of care discussed even if they declined (Discuss DNR or withdrawal of care, Hospice)? DNR status @ -No What co-morbidities impacted this encounter? (DM, HTN, Smoking, COPD, CAD, Cancer, CVA, ARF, Chemo, Hep., AIDS, mental health diagnosis, sleep apnea, morbid obesity)? @ -None Was patient admitted / discharged? Hospital course, mention meds given and route, prescriptions, significant lab abnormalities, going to OR and other pertinent info. @ -[48-year-old female presenting with altered mental status after smoking marijuana. Patient is able to answer simple questions and follow commands. She has stable vitals and a nonfocal neurologic exam. I did obtain laboratory testing, EKG, head CT. Workup in the emergency department is unremarkable. Patient observed until she had returned to baseline. Stable for discharge at this time. Undiagnosed new problem with uncertain prognosis? @ -No Drug Therapy requiring intensive monitoring for toxicity (Heparin, Nitro, Insulin, Cardizem)? @ -No Were any procedures done? @ -No Diagnosis/symptom? @ -Altered mental status secondary to marijuana Acute, or Chronic, or Acute on Chronic? @ -Acute Uncomplicated (without systemic symptoms) or Complicated (systemic symptoms)? @ -Default Side effects of treatment? @ -No Exacerbation, Progression, or Severe Exacerbation? @ -No Poses a threat to life or bodily function? How? (Chest pain, [place], ND, pneumonia, PE, COPD, DKA, ARF, appy, cholecystitis, CVA, Diverticulitis, Homicidal, Suicidal, threat to staff... and all critical care pts) @ -Low risk at this time - Lab Data Result diagrams: 07/12/24 12:58 07/12/24 12:58 Lab Results 07/12/24 07/12/24 07/12/24 Range/Units 12:58 12:58 12:58 WBC 7.8 (3.8-10.6) k/uL RBC 4.19 (3.80-5.40) m/uL Hgb 13.2 (11.4-16.0) gm/dL Hct 42.5 (34.0-46.0) % MCV 101.3 H (80.0-100.0) fL MCH 31.5 (25.0-35.0) pg MCHC 31.1 (31.0-37.0) g/dL RDW 13.2 (11.5-15.5) % Plt Count 274 (150-450) k/uL MPV 7.3 Neutrophils % 67 % Lymphocytes % 27 % Monocytes % 4 % Eosinophils % 0 % Basophils % 0 % Neutrophils # 5.3 (1.3-7.7) k/uL Lymphocytes # 2.1 (1.0-4.8) k/uL Monocytes # 0.3 (0-1.0) k/uL Eosinophils # 0.0 (0-0.7) k/uL Basophils # 0.0 (0-0.2) k/uL Hypochromasia Marked Macrocytosis Slight PT 10.6 (10.0-12.5) sec INR 1.0 (<1.2) APTT 24.5 (22.0-30.0) sec VBG pH (7.31-7.41) VBG pCO2 (37-51) mmHg VBG HCO3 (24-28) mmol/L Sodium 138 (137-145) mmol/L Potassium 4.7 (3.5-5.1) mmol/L Chloride 114 H (98-107) mmol/L Carbon Dioxide 22 (22-30) mmol/L Anion Gap 2 mmol/L BUN 14 (7-17) mg/dL Creatinine 0.74 (0.52-1.04) mg/dL Est GFR (CKD-EPI)AfAm >90 (>60 ml/min/1.73 sqM) Est GFR (CKD-EPI)NonAf >90 (>60 ml/min/1.73 sqM) Glucose 102 H (74-99) mg/dL POC Glucose (mg/dL) (70-110) mg/dL POC Glu Toll Line Repairer ID Calcium 9.3 (8.4-10.2) mg/dL Total Bilirubin 0.4 (0.2-1.3) mg/dL AST 19 (14-36) U/L ALT 7 (4-34) U/L Alkaline Phosphatase 75 (38-126) U/L Ammonia (<30) umol/L Total Protein 6.8 (6.3-8.2) g/dL Albumin 3.8 (3.5-5.0) g/dL Serum Alcohol <10 mg/dL 07/12/24 07/12/24 07/12/24 Range/Units 12:58 12:58 12:58 WBC (3.8-10.6) k/uL RBC (3.80-5.40) m/uL Hgb (11.4-16.0) gm/dL Hct (34.0-46.0) % MCV (80.0-100.0) fL MCH (25.0-35.0) pg MCHC (31.0-37.0) g/dL RDW (11.5-15.5) % Plt Count (150-450) k/uL MPV Neutrophils % % Lymphocytes % % Monocytes % % Eosinophils % % Basophils % % Neutrophils # (1.3-7.7) k/uL Lymphocytes # (1.0-4.8) k/uL Monocytes # (0-1.0) k/uL Eosinophils # (0-0.7) k/uL Basophils # (0-0.2) k/uL Hypochromasia Macrocytosis PT (10.0-12.5) sec INR (<1.2) APTT (22.0-30.0) sec VBG pH 7.35 (7.31-7.41) VBG pCO2 41 (37-51) mmHg VBG HCO3 23 L (24-28) mmol/L Sodium (137-145) mmol/L Potassium (3.5-5.1) mmol/L Chloride (98-107) mmol/L Carbon Dioxide (22-30) mmol/L Anion Gap mmol/L BUN (7-17) mg/dL Creatinine (0.52-1.04) mg/dL Est GFR (CKD-EPI)AfAm (>60 ml/min/1.73 sqM) Est GFR (CKD-EPI)NonAf (>60 ml/min/1.73 sqM) Glucose (74-99) mg/dL POC Glucose (mg/dL) 101 (70-110) mg/dL POC Glu Toll Line Repairer ID [facility] Calcium (8.4-10.2) mg/dL Total Bilirubin (0.2-1.3) mg/dL AST (14-36) U/L ALT (4-34) U/L Alkaline Phosphatase (38-126) U/L Ammonia 18 (<30) umol/L Total Protein (6.3-8.2) g/dL Albumin (3.5-5.0) g/dL Serum Alcohol mg/dL Disposition Clinical Impression: Cannabis use disorder, Altered mental status Disposition: HOME SELF-CARE Condition: Fair Instructions (If sedation given, give patient instructions): Altered Mental S tatus (ED) Additional Instructions: Please abstain from using drugs including marijuana. Is patient prescribed a controlled substance at d/c from ED?: No Referrals: Starr Singh MD [Primary Care Provider] - 1-2 days Time of Disposition: 14:17
[2024-07-12 13:16] LABS: VBG PH 7.35 (7.31-7.41)
[2024-07-12 13:18] LABS: Basophils % (A) 0 %; Eosinophils % (A) 0 %; HCT 42.5 % (34.0-46.0); HGB 13.2 gm/dL (11.4-16.0); Hypochromasia Marked; Lymphocytes # (A) 2.1 k/uL (1.0-4.8); Lymphocytes % (A) 27 %; MCH 31.5 pg (25.0-35.0); MCHC 31.1 g/dL (31.0-37.0); MCV 101.3 fL (80.0-100.0); Macrocytosis Slight; Mean Platelet Volume 7.3; Monocytes # (A) 0.3 k/uL (0-1.0); Monocytes % (A) 4 %; Neutrophils # (A) 5.3 k/uL (1.3-7.7); Neutrophils % (A) 67 %; Platelet Count 274 k/uL (150-450); RBC 4.19 m/uL (3.80-5.40); RDW 13.2 % (11.5-15.5); WBC 7.8 k/uL (3.8-10.6)
[2024-07-12 13:30] LABS: Partial Thromboplastin Time 24.5 sec (22.0-30.0); Prothrombin Time 10.6 sec (10.0-12.5)
[2024-07-12 13:31] LABS: ALT 7 U/L (4-34); AST 19 U/L (14-36); African American GFR (CKD) >90 (>60 ml/min/1.73 sqM); Albumin 3.8 g/dL (3.5-5.0); Alcohol <10 mg/dL; Alkaline Phosphatase 75 U/L (38-126); Anion Gap 2 mmol/L; Blood Urea Nitrogen 14 mg/dL (7-17); Calcium 9.3 mg/dL (8.4-10.2); Carbon Dioxide 22 mmol/L (22-30); Chloride 114 mmol/L (98-107); Glucose 102 mg/dL (74-99); Non-African American GFR(CKD) >90 (>60 ml/min/1.73 sqM); Potassium 4.7 mmol/L (3.5-5.1); Sodium 138 mmol/L (137-145); Total Bilirubin 0.4 mg/dL (0.2-1.3); Total Protein 6.8 g/dL (6.3-8.2)
--- NOTE | 2024-07-12 14:05 | CT ---
EXAMINATION TYPE: CT brain wo con DATE OF EXAM: 07/12/2024 COMPARISON: 02/08/2023 INDICATION: Acute mental status changes DLP: 1139.4 mGycm, Automated exposure control for dose reduction was used. CONTRAST: None CT of the brain is performed utilizing 3 mm thick sections through the posterior fossa and 3 mm thick sections through the remaining calvarium. Study is performed within 24 hours of arrival to the hosp [place]. No abnormal hyperdensity is present to suggest an acute intracranial hemorrhage. No mass lesion is evident. No acute infarcts are evident. Ventricles and sulci are appropriate for the patient age. Calcification is seen in the left maxillary sinus. Remaining paranasal sinuses and mastoid air cells are clear. IMPRESSION: 1. No acute intracranial process. Follow up MRI can be performed as clinically indicated. [facility], Workstation: [facility], 07/12/2024 2:02 PM
[2024-07-12] MEDS: SODIUM CHLORIDE 0.9% 1,000 ML IV STA (16:59)
[2024-07-12] MEDS: SODIUM CHLORIDE 0.9% 500 ML IV STA (17:08)
[2024-07-12 17:42] VITALS: BP 140/74; PULSE 68; RESP 16
== END 2024-07-12 17:46 | disposition home or self-care (01) ==
LOC: EC 12:39
CPT/HCPCS: 36415; 70450; 80053; 80320; 82140; 82803; 85025; 85610; 85730; 93005; 96360; 96361; 99285

== ENCOUNTER 2024-10-16 17:04 | Inpatient (IN) | payer BC, OTHER ==
--- NOTE | 2024-10-16 18:12 | ED ---
Neuro HPI - General Chief Complaint: Neuro Symptoms/Deficit Stated Complaint: COVID Time Seen by Provider: 10/16/24 17:20 Source: patient, family, RN notes reviewed Mode of arrival: ambulatory Limitations: no limitations - History of Present Illness Is the patient presenting with stroke symptoms?: Yes Last Known Well Date: 10/16/24 Last Known Well Time: 09:30 Onset/Timin -: hour(s) Initial Comments: This is a 48-year-old female current smoker with history of epilepsy and COPD presenting with mother for dizziness, balance issues and headache since 0 930 this morning. Patient states she began not feeling well last night with associated chills. States she went to [facility] where she was diagnosed with COVID before being referred to the ER for further evaluation. Mother states patient has also become more forgetful recently. Denies fever, chest pain, dyspnea, abdominal pain, N/V/D, urinary symptoms. Last Observed Normal: 09:30 Location: speech, dysarthria, ataxia History of same: No Place: home Quality: weak On Anticoagulants: No Associated Symptoms: confusion, headaches, weakness Treatments Prior to Arrival: none - Related Data Home Medications: Home Medications Medication Instructions Recorded Confirmed Topiramate [Topamax] 400 mg PO HS 06/24/20 07/12/24 Albuterol Inhaler [Ventolin Hfa 2 puff INHALATION RT-QID PRN 10/11/22 07/12/24 Inhaler] Fluticasone/Umeclidin/Vilanter 1 puff INHALATION RT-DAILY 10/11/22 07/12/24 [Trelejustin Ellipta 100-62.5-25] Brimonidine Tartrate [Alphagan P 1 drops BOTH EYES BID 07/12/24 07/12/24 0.2% Ophth Soln] Dorzolamide 2% [Trusopt 2%] 1 drops BOTH EYES TID 07/12/24 07/12/24 FLUoxetine HCL [PROzac] 40 mg PO DAILY 07/12/24 07/12/24 Magnesium Oxide [Magnesium] 500 mg PO DAILY 07/12/24 07/12/24 clonazePAM [KlonoPIN] 1 mg PO BID 07/12/24 07/12/24 diazePAM [Valtoco] 1 dose NASAL DIRECTED PRN 07/12/24 07/12/24 haloperidoL [Haldol] 5 mg PO DAILY 07/12/24 07/12/24 hydrOXYzine pamoate [Vistaril] 50 mg PO TID 07/12/24 07/12/24 traZODone HCL [Desyrel] 200 mg PO HS 07/12/24 07/12/24 Previous Rx's Medication Instructions Recorded [place] Carbonate 300 mg PO BID 15 Days #30 cap 02/13/23 busPIRone HCl [Buspar] 20 mg PO TID 15 Days #45 tab 02/13/23 Azithromycin [Zithromax Z Pack] 1 tab PO DIRECTED 4 Days #4 tab 10/16/24 Allergies/Adverse Reactions: Allergies Allergy/AdvReac Type Severity Reaction Status Date / Time No Known Allergies Allergy Verified 10/16/24 17:10 Review of Systems ROS Statement: Those systems with pertinent positive or pertinent negative responses have been documented in the HPI. ROS Other: All systems not noted in ROS Statement are negative. General Exam Limitations: no limitations General appearance: in no apparent distress, lethargic Head exam: Present: atraumatic, normocephalic, normal inspection Eye exam: Present: normal appearance, PERRL, EOMI. Absent: scleral icterus, conjunctival injection, periorbital swelling Pupils: Present: normal accommodation ENT exam: Present: normal exam, mucous membranes moist, TM's normal bilaterally Neck exam: Present: normal inspection. Absent: tenderness, meningismus, lymphadenopathy Respiratory exam: Present: wheezes, rhonchi, decreased breath sounds, prolonged expiratory. Absent: respiratory distress, rales, stridor Cardiovascular Exam: Present: regular rate, normal rhythm, normal heart sounds. Absent: systolic murmur, diastolic murmur, rubs, gallop, clicks GI/Abdominal exam: Present: soft, normal bowel sounds. Absent: distended, tenderness, guarding, rebound, rigid Extremities exam: Present: normal inspection, full ROM, normal capillary refill. Absent: tenderness, pedal edema, joint swelling, calf tenderness Back exam: Present: normal inspection Neurological exam: Present: alert, oriented X3, CN II-XII intact, abnormal gait, other (Lldtqu-km-nudk test and dxxe-ph-maxq normal. Abnormal rapid alternating movement. [place] stroke: minor LUE pronation. No unilateral facial palsy) Psychiatric exam: Present: normal mood, flat affect Skin exam: Present: warm, dry, intact, normal color. Absent: rash Stroke MDM - Lab Data Result diagrams: 10/16/24 18:30 10/16/24 18:30 Lab Results 10/16/24 10/16/24 10/16/24 Range/Units 18:30 18:30 18:30 WBC 9.5 (3.8-10.6) k/uL RBC 4.05 (3.80-5.40) m/uL Hgb 12.8 (11.4-16.0) gm/dL Hct 39.7 (34.0-46.0) % MCV 97.9 (80.0-100.0) fL MCH 31.7 (25.0-35.0) pg MCHC 32.4 (31.0-37.0) g/dL RDW 13.8 (11.5-15.5) % Plt Count 214 (150-450) k/uL MPV 8.1 Neutrophils % 80 % Lymphocytes % 10 % Monocytes % 8 % Eosinophils % 0 % Basophils % 0 % Neutrophils # 7.6 (1.3-7.7) k/uL Lymphocytes # 0.9 L (1.0-4.8) k/uL Monocytes # 0.7 (0-1.0) k/uL Eosinophils # 0.0 (0-0.7) k/uL Basophils # 0.0 (0-0.2) k/uL PT 11.6 (10.0-12.5) sec INR 1.1 (<1.2) APTT 23.7 (22.0-30.0) sec VBG pH (7.31-7.41) VBG pCO2 (37-51) mmHg VBG HCO3 (24-28) mmol/L Sodium 133 L (137-145) mmol/L Potassium 4.4 (3.5-5.1) mmol/L Chloride 106 (98-107) mmol/L Carbon Dioxide 19 L (22-30) mmol/L Anion Gap 8 mmol/L BUN 10 (7-17) mg/dL Creatinine 0.77 (0.52-1.04) mg/dL Est GFR (CKD-EPI)AfAm >90 (>60 ml/min/1.73 sqM) Est GFR (CKD-EPI)NonAf >90 (>60 ml/min/1.73 sqM) Glucose 90 (74-99) mg/dL Plasma Lactic Acid Pollo (0.7-2.0) mmol/L Calcium 8.5 (8.4-10.2) mg/dL Total Bilirubin 0.5 (0.2-1.3) mg/dL AST 28 (14-36) U/L ALT 11 (4-34) U/L Alkaline Phosphatase 59 (38-126) U/L Troponin I (0.000-0.034) ng/mL Total Protein 6.7 (6.3-8.2) g/dL Albumin 3.7 (3.5-5.0) g/dL Urine Color Urine Appearance (Clear) Urine pH (5.0-8.0) Ur Specific [place] (1.001-1.035) Urine Protein (Negative) Urine Glucose (UA) (Negative) Urine Ketones (Negative) Urine Blood (Negative) Urine Nitrite (Negative) Urine Bilirubin (Negative) Urine Urobilinogen (<2.0) mg/dL Ur Leukocyte Esterase (Negative) Influenza Type A (PCR) (Not Detectd) Influenza Type B (PCR) (Not Detectd) RSV (PCR) (Not Detectd) SARS-CoV-2 (PCR) (Not Detectd) 10/16/24 10/16/24 10/16/24 Range/Units 18:30 18:30 18:30 WBC (3.8-10.6) k/uL RBC (3.80-5.40) m/uL Hgb (11.4-16.0) gm/dL Hct (34.0-46.0) % MCV (80.0-100.0) fL MCH (25.0-35.0) pg MCHC (31.0-37.0) g/dL RDW (11.5-15.5) % Plt Count (150-450) k/uL MPV Neutrophils % % Lymphocytes % % Monocytes % % Eosinophils % % Basophils % % Neutrophils # (1.3-7.7) k/uL Lymphocytes # (1.0-4.8) k/uL Monocytes # (0-1.0) k/uL Eosinophils # (0-0.7) k/uL Basophils # (0-0.2) k/uL PT (10.0-12.5) sec INR (<1.2) APTT (22.0-30.0) sec VBG pH (7.31-7.41) VBG pCO2 (37-51) mmHg VBG HCO3 (24-28) mmol/L Sodium (137-145) mmol/L Potassium (3.5-5.1) mmol/L Chloride (98-107) mmol/L Carbon Dioxide (22-30) mmol/L Anion Gap mmol/L BUN (7-17) mg/dL Creatinine (0.52-1.04) mg/dL Est GFR (CKD-EPI)AfAm (>60 ml/min/1.73 sqM) Est GFR (CKD-EPI)NonAf (>60 ml/min/1.73 sqM) Glucose (74-99) mg/dL Plasma Lactic Acid Pollo 0.7 (0.7-2.0) mmol/L Calcium (8.4-10.2) mg/dL Total Bilirubin (0.2-1.3) mg/dL AST (14-36) U/L ALT (4-34) U/L Alkaline Phosphatase (38-126) U/L Troponin I <0.012 (0.000-0.034) ng/mL Total Protein (6.3-8.2) g/dL Albumin (3.5-5.0) g/dL Urine Color Urine Appearance (Clear) Urine pH (5.0-8.0) Ur Specific [place] (1.001-1.035) Urine Protein (Negative) Urine Glucose (UA) (Negative) Urine Ketones (Negative) Urine Blood (Negative) Urine Nitrite (Negative) Urine Bilirubin (Negative) Urine Urobilinogen (<2.0) mg/dL Ur Leukocyte Esterase (Negative) Influenza Type A (PCR) Not Detected (Not Detectd) Influenza Type B (PCR) Not Detected (Not Detectd) RSV (PCR) Not Detected (Not Detectd) SARS-CoV-2 (PCR) Detected A (Not Detectd) 10/16/24 10/16/24 Range/Units 18:30 23:00 WBC (3.8-10.6) k/uL RBC (3.80-5.40) m/uL Hgb (11.4-16.0) gm/dL Hct (34.0-46.0) % MCV (80.0-100.0) fL MCH (25.0-35.0) pg MCHC (31.0-37.0) g/dL RDW (11.5-15.5) % Plt Count (150-450) k/uL MPV Neutrophils % % Lymphocytes % % Monocytes % % Eosinophils % % Basophils % % Neutrophils # (1.3-7.7) k/uL Lymphocytes # (1.0-4.8) k/uL Monocytes # (0-1.0) k/uL Eosinophils # (0-0.7) k/uL Basophils # (0-0.2) k/uL PT (10.0-12.5) sec INR (<1.2) APTT (22.0-30.0) sec VBG pH 7.37 (7.31-7.41) VBG pCO2 32 L (37-51) mmHg VBG HCO3 18 L (24-28) mmol/L Sodium (137-145) mmol/L Potassium (3.5-5.1) mmol/L Chloride (98-107) mmol/L Carbon Dioxide (22-30) mmol/L Anion Gap mmol/L BUN (7-17) mg/dL Creatinine (0.52-1.04) mg/dL Est GFR (CKD-EPI)AfAm (>60 ml/min/1.73 sqM) Est GFR (CKD-EPI)NonAf (>60 ml/min/1.73 sqM) Glucose (74-99) mg/dL Plasma Lactic Acid Pollo (0.7-2.0) mmol/L Calcium (8.4-10.2) mg/dL Total Bilirubin (0.2-1.3) mg/dL AST (14-36) U/L ALT (4-34) U/L Alkaline Phosphatase (38-126) U/L Troponin I (0.000-0.034) ng/mL Total Protein (6.3-8.2) g/dL Albumin (3.5-5.0) g/dL Urine Color Colorless Urine Appearance Clear (Clear) Urine pH 6.5 (5.0-8.0) Ur Specific [place] 1.008 (1.001-1.035) Urine Protein Negative (Negative) Urine Glucose (UA) Negative (Negative) Urine Ketones Negative (Negative) Urine Blood Negative (Negative) Urine Nitrite Negative (Negative) Urine Bilirubin Negative (Negative) Urine Urobilinogen <2.0 (<2.0) mg/dL Ur Leukocyte Esterase Negative (Negative) Influenza Type A (PCR) (Not Detectd) Influenza Type B (PCR) (Not Detectd) RSV (PCR) (Not Detectd) SARS-CoV-2 (PCR) (Not Detectd) - NIH Stroke Scale 1a. Level of Consciousness: (1) not alert, arousable 1b. LOC Questions: (0) answers correctly 1c. LOC Commands: (0) performs tasks correctly 2. Best Gaze: (0) normal 3. Visual: (0) no visual loss 4. Facial Palsy: (0) normal symmetrical movement 5a. Motor Arm Left: (1) drift 5b. Motor Arm Right: (0) no drift 6a. Motor Leg Left: (0) no drift 6b. Motor Leg Right: (0) no drift 7. Limb Ataxia: (0) absent 8. Sensory: (0) normal 9. Best Language: (0) no aphasia 10. Dysarthria: (0) normal 11. Extinction/Inattention: (1) visual/tactile inattention - Thrombolytic Inclusion/Exclusion Thrombolytic Exclusion Criteria: Symptom Onset > 4.5 Hours - Medical Decision Making Was pt. sent in by a medical professional or institution (DANE Tillman, TRAM DRIVER, urgent care, hospital, or longterm...) When possible be specific @ -No Did you speak to anyone other than the patient for history (EMS, parent, family, police, friend...)? What history was obtained from this source @ -Patient's mother provided majority of present medical history Did you review nursing and triage notes (agree or disagree)? Why? @ -I reviewed and agree with nursing and triage notes Were old charts reviewed (outside hosp., previous admission, EMS record, old EKG, old radiological studies, urgent care reports/EKG's, longterm records)? Report findings @ -No old charts were reviewed Differential Diagnosis (chest pain, altered mental status, abdominal pain women, abdominal pain men, vaginal bleeding, weakness, fever, dyspnea, syncope, headache, dizziness, GI bleed, back pain, seizure, CVA, palpatations, mental health, musculoskeletal)? @ -Differential Weakness: Hypoglycemia, shock, sepsis, hyponatremia, anemia, infection, [place], ETOH, adverse medicine reaction, overdose, stroke, this is not meant to be an all-inclusive list. Differential Headache: Migraine, tension, cluster, carbon monoxide, central venous thrombosis, pension karma temporal arteritis, acute closure glaucoma, intercranial hemorrhage, m astoiditis, sinusitis, head injury, this is not meant to be an all-inclusive list. EKG interpreted by me (3pts min.). @ -Sinus rhythm without ST changes or T wave inversion. Ventricular rate 74 bpm, SOL 164 ms, QRS duration 90 ms, QTc 390 ms. X-rays interpreted by me (1pt min.). @ -CXR shows no acute cardiopulmonary process. CT interpreted by me (1pt min.). @ -Brain CT shows no acute intracranial process. Angiographic CT shows no acute intracranial, carotid or vertebral artery dissection, stenosis, aneurysm. Scattered interstitial opacities and lymphadenopathy throughout mediastinum of the lungs indicate atypical pneumonia. U/S interpreted by me (1pt. min.). @ -None done What testing was considered but not performed or refused? (CT, X-rays, U/S, labs)? Why? @ -None What meds were considered but not given or refused? Why? @ -None Did you discuss the management of the patient with other professionals (professionals i.e. , PA, TRAM DRIVER, lab, RT, psych nurse, family welfare social work professor, director of sports medicine, teacher, radio electronics officer, director of casework department)? Give summary @ -Spoke to Dr. Villa who agreed to patient admission Was smoking cessation discussed for >3mins.? @ -No Was critical care preformed (if so, how long)? @ -No Were there social determinants of health that impacted care today? How? (Homelessness, low income, unemployed, alcoholism, drug addiction, transportat ion, low edu. Level, literacy, decrease access to med. care, care home, rehab)? @ -No Was there de-escalation of care discussed even if they declined (Discuss DNR or withdrawal of care, Hospice)? DNR status @ -No What co-morbidities impacted this encounter? (DM, HTN, Smoking, COPD, CAD, Cancer, CVA, ARF, Chemo, Hep., AIDS, mental health diagnosis, sleep apnea, morbid obesity)? @ -Smoking, epilepsy Was patient admitted / discharged? Hospital course, mention meds given and route, prescriptions, significant lab abnormalities, going to OR and other pertinent info. @ -Lab work shows decreased carbon dioxide and bicarbonate. Cepheid test positive for COVID-19. Otherwise unremarkable including negative troponin and lactic acid. CXR shows no acute cardiopulmonary process. Brain CT shows no acute intracranial process. Angiographic CT shows no acute intracranial, carotid or vertebral artery dissection, stenosis, aneurysm. Scattered interstitial opacities and lymphadenopathy throughout mediastinum of the lungs indicate atypical pneumonia. Patient initially provided DuoNeb and Solu-Medrol. Rocephin and azithromycin provided upon discovery of pneumonia. Patient provided Toradol and normal saline for headache and Tylenol for fever that later manifested. Straight catheterization ordered due to patient being unable to urinate to produce urine sample for UA. Spoke to Dr. Villa who agreed to admit patient. Discussed patient with Dr. Anderson Undiagnosed new problem with uncertain prognosis? @ -Pneumonia Drug Therapy requiring intensive monitoring for toxicity (Heparin, Nitro, Insulin, Cardizem)? @ -No Were any procedures done? @ -Urinary straight cath by RN Diagnosis/symptom? @ -Pneumonia, COVID-19 Acute, or Chronic, or Acute on Chronic? @ -Acute Uncomplicated (without systemic symptoms) or Complicated (systemic symptoms)? @ -Complicated Side effects of treatment? @ -No Exacerbation, Progression, or Severe Exacerbation? @ -No Poses a threat to life or bodily function? How? (Chest pain, [place], MN, pneumonia, PE, COPD, DKA, ARF, appy, cholecystitis, CVA, Diverticulitis, Homicidal, Suicidal, threat to staff... and all critical care pts) @ -Pneumonia, respiratory failure Past Medical History Past Medical History: GERD/Reflux, Hearing Disorder / Deafness, Neurologic Disorder, Seizure Disorder Additional Past Medical History / Comment(s): having nausea and diarrhea, EPILEPSY, LAST SEIZURE 12/02/2018, Neuropathy arms & hands, memory issues History of Any Multi-Drug Resistant Organisms: None Reported Past Surgical History: Appendectomy, Hysterectomy, Orthopedic Surgery Additional Past Surgical History / Comment(s): RADIAL NERVE SURG [place]. Past Anesthesia/Blood Transfusion Reactions: No Reported Reaction Past Psychological History: Anxiety, Bipolar, Depression Smoking Status: Current every day smoker Past Alcohol Use History: None Reported Past Drug Use History: Marijuana - Past Family History Father Family Medical History: Coronary Artery Disease (CAD) Additional Family Medical History / Comment(s): quadruple cabg, bipolar, ptsd Sister(s) Additional Family Medical History / Comment(s): ETOH bipolar Course Vital Signs 10/16/24 10/16/24 10/16/24 17:10 18:07 22:15 Temperature 99.4 F 101.0 F H Pulse Rate 82 79 Respiratory 20 20 18 Rate Blood Pressure 132/79 115/66 O2 Sat by Pulse 95 89 L Oximetry 10/16/24 23:37 Temperature 97.8 F Pulse Rate 77 Respiratory 18 Rate Blood Pressure 107/56 O2 Sat by Pulse 91 L Oximetry Disposition Clinical Impression: Pneumonia, COVID-19 Disposition: ADMITTED IP TO THIS HOSP Condition: Fair Prescriptions: Azithromycin [Zithromax Z Pack] 1 tab PO DIRECTED 4 Days #4 tab Is patient prescribed a controlled substance at d/c from ED?: No Referrals: Starr Singh MD [Primary Care Provider] - 1-2 days Time of Disposition: 00:21 Decision Date: 10/17/24 Decision Time: 00:21
--- NOTE | 2024-10-16 18:42 | XR ---
EXAMINATION TYPE: XR chest 2V DATE OF EXAM: 10/16/2024 6:21 PM COMPARISON: Chest radiographs from 05/24/2020 CLINICAL INDICATION: Female, 48 years old with history of altered mental status; [facility] TECHNIQUE: XR chest 2V Frontal and lateral views of the chest. FINDINGS: Lungs/Pleura: There is no evidence of pleural effusion, focal consolidation, or pneumothorax. Pulmonary vascularity: Unremarkable. Heart/mediastinum: Cardiomediastinal silhouette is unremarkable. Musculoskeletal: No acute osseous pathology. IMPRESSION: No acute cardiopulmonary disease/process. [facility], , 10/16/2024 6:39 PM
[2024-10-16] MEDS: methylPREDNISolone SOD SUCCI 125 MG/2 ML VIAL IV STA (19:02)
--- NOTE | 2024-10-16 19:02 | CT ---
EXAMINATION TYPE: CT brain wo con DATE OF EXAM: 10/16/2024 6:40 PM COMPARISON: 07/12/2024. CLINICAL INDICATION: Female, 48 years old with history of Neuro deficit, acute, stroke suspected, Hea dache, slurred speech, and dizziness x today TECHNIQUE: Brain: Axial CT images of the brain were obtained with coronal and sagittal reformats created and rev iewed. Contrast used: None. Oral contrast used: None. CT DLP: 1508.1 mGycm, Automated exposure control for dose reduction was used. FINDINGS: Brain: Extra-axial spaces: No abnormal extra-axial fluid collections. Ventricular system: Within normal limits Cerebral parenchyma: No acute intraparenchymal hemorrhage or mass effect. The villegas-white junction is well differentiated. Cerebellum: Unremarkable. Mass effect: No evidence of midline shift. Intracranial vasculature: unremarkable Soft tissues: Normal. Calvarium/osseous structures: No depressed skull fracture. Paranasal sinuses and mastoid air cells: Mild scattered paranasal sinus disease. Visualized orbits: Orbital contents are intact. IMPRESSION: No acute intracranial process. [facility], , 10/16/2024 7:00 PM
[2024-10-16 19:04] LABS: Basophils % (A) 0 %; Eosinophils % (A) 0 %; HCT 39.7 % (34.0-46.0); HGB 12.8 gm/dL (11.4-16.0); Lymphocytes # (A) 0.9 k/uL (1.0-4.8); Lymphocytes % (A) 10 %; MCH 31.7 pg (25.0-35.0); MCHC 32.4 g/dL (31.0-37.0); MCV 97.9 fL (80.0-100.0); Mean Platelet Volume 8.1; Monocytes # (A) 0.7 k/uL (0-1.0); Monocytes % (A) 8 %; Neutrophils # (A) 7.6 k/uL (1.3-7.7); Neutrophils % (A) 80 %; Platelet Count 214 k/uL (150-450); RBC 4.05 m/uL (3.80-5.40); RDW 13.8 % (11.5-15.5); VBG PH 7.37 (7.31-7.41); WBC 9.5 k/uL (3.8-10.6)
[2024-10-16 19:18] LABS: ALT 11 U/L (4-34); African American GFR (CKD) >90 (>60 ml/min/1.73 sqM); Anion Gap 8 mmol/L; Blood Urea Nitrogen 10 mg/dL (7-17); Calcium 8.5 mg/dL (8.4-10.2); Carbon Dioxide 19 mmol/L (22-30); Chloride 106 mmol/L (98-107); Glucose 90 mg/dL (74-99); Non-African American GFR(CKD) >90 (>60 ml/min/1.73 sqM); Sodium 133 mmol/L (137-145); Total Bilirubin 0.5 mg/dL (0.2-1.3)
--- NOTE | 2024-10-16 19:18 | CT ---
EXAMINATION TYPE: CT angio head neck DATE OF EXAM: 10/16/2024 6:51 PM COMPARISON: 10/16/2024. CLINICAL INDICATION: Female, 48 years old with history of Neuro deficit, acute, stroke suspected, Hea dache, slurred speech, and dizziness x today TECHNIQUE: Axially acquired helical CT angiogram of the head and neck was obtained with contrast. Axi al images are supplemented with 3D reconstructions and MIP images which were post-processed at an in dependent workstation. NASCET criteria used. Contrast used:65 mL of Isovue 370 without and with IV Contrast, Oral contrast used: None. CT DLP: 1508.1 mGycm, Automated exposure control for dose reduction was used. FINDINGS: CTA HEAD: No evidence of acute intracranial hemorrhage, mass effect, or midline shift. The ventricles, sulci, a nd cisterns are unremarkable. Vertebral arteries: The vertebral arteries are patent. Vertebral artery dominance: Codominant Basilar artery: The basilar artery is intact. The basilar artery bifurcation is normal. Internal Carotid arteries: The cervical, petrous, cavernous and supraclinoid segments are normal. ANDRES: Patent with no evidence of aneurysm. ACOM: Present without evidence of aneurysm. MCA: Patent with no evidence of aneurysm. MEDICAL LAB TECHNOLOGIST: Patent with no evidence of aneurysm. PCOM: Hypoplastic bilaterally. Dural sinuses: Patent. CTA NECK: Right Carotid System: The common carotid artery and external carotid artery are patent. The carotid bifurcation demonstrate s no evidence of hemodynamically significant stenosis. The remaining portions of the internal carotid artery demonstrate normal size without significant narrowing. Left Carotid System: The common carotid artery and external carotid artery are patent. The carotid bifurcation demonstrate s no evidence of hemodynamically significant stenosis. The remaining portions of the internal carotid artery demonstrate normal size without significant narrowing. Vertebral arteries are patent without evidence hemodynamically significant stenosis. There is a three-vessel aortic arch. The origins of the great vessels are patent. No evidence of hemo dynamically significant stenosis. Upper thorax: Scattered interstitial groundglass opacities throughout the lungs.r there is enlarged l ymph nodes in the mediastinum including AP window 12 mm and right low paratracheal measuring up to 10 mm. IMPRESSION: 1. No evidence of dissection of the cervical internal carotid arteries or vertebral arteries. 2. No any evidence of significant stenosis at the carotid bifurcations. 3. No evidence of intracranial high-grade stenosis or intracranial aneurysm. 4. Lymphadenopathy throughout the mediastinum with Scattered interstitial opacities correlate for un derlying atypical pneumonia. Further workup of the chest should be considered. [facility], , 10/16/2024 7:16 PM
[2024-10-16 19:25] LABS: AST 28 U/L (14-36); Albumin 3.7 g/dL (3.5-5.0); Alkaline Phosphatase 59 U/L (38-126); Potassium 4.4 mmol/L (3.5-5.1); Total Protein 6.7 g/dL (6.3-8.2)
[2024-10-16 19:48] LABS: INR 1.1 (<1.2); Partial Thromboplastin Time 23.7 sec (22.0-30.0); Prothrombin Time 11.6 sec (10.0-12.5)
[2024-10-16] MEDS: AZITHROMYCIN 500 MG TAB PO STA (20:34)
[2024-10-16] MEDS: SODIUM CHLORIDE 0.9% 1,000 ML IV STA (22:05)
[2024-10-16] MEDS: KETOROLAC 15 MG/ML 1 ML VIAL IVP STA (22:06)
[2024-10-16] MEDS: IPRATROPIUM-ALBUTEROL 3 ML NEB INHALATION STA (22:09)
[2024-10-16] MEDS: ACETAMINOPHEN TAB 325 MG TAB PO STA (22:35)
[2024-10-16 23:47] LABS: Appearance,Urine Clear (Clear); Bilirubin,Urine Negative (Negative); Blood,Urine Negative (Negative); Color,Urine Colorless; Glucose,Urine (UA) Negative (Negative); Ketones,Urine Negative (Negative); Leukocyte Esterase,Urine Negative (Negative); Nitrite,Urine Negative (Negative); PH, Urine 6.5 (5.0-8.0); Protein,Urine Negative (Negative); Specific Gravity,Urine 1.008 (1.001-1.035); Urobilinogen,Urine <2.0 mg/dL (<2.0)
[2024-10-17] MEDS ORDERED: ALBUTEROL HFA INHALER INHALATION SCH
[2024-10-17] MEDS ORDERED: NALOXONE 0.4 MG/ML 1 ML VIAL IV PRN (00:28)
[2024-10-17] MEDS ORDERED: ALBUTEROL HFA INHALER INHALATION PRN (00:31)
[2024-10-17] MEDS: SODIUM CHLORIDE 0.9% 1,000 ML IV STA (01:06)
[2024-10-17] MEDS: methylPREDNISolone SOD SUCCI 40 MG/ML 1 ML VIAL IV SCH ×2 (01:06→08:11)
[2024-10-17 01:16] LABS: VBG PH 7.26 (7.31-7.41)
[2024-10-17] MEDS ORDERED: guaiFENesin-DM 100-10MG/5ML 10 ML CUP PO PRN (03:27)
--- NOTE | 2024-10-17 03:32 | P.CNPUL ---
History of Present Illness Consult date: 10/17/24 Requesting physician: Ramon Anderson Reason for consult: COPD Chief complaint: Generalized weakness, lethargy, cough History of present illness: Patient is a 48-year-old female with past medical history significant for COPD, cognitive impairment, bipolar disorder, epilepsy, and chronic ongoing tobacco dependence. Her primary care provider is Dr. Singh. She does follow in the pul [facility] office for her moderate COPD. She has an FEV1 65% of predicted. She uses combination of Trelegy inhaler, albuterol nebs, and as need albuterol inhaler. She continues to smoke approximately 1-1.5 and half packs per day Patient lives with her mother, she reportedly has cognitive deficit/impairment acquired at . She also has history of epilepsy, but has not had a seizure in over 1-1/2 years. Patient's mother is at bedside and offers information. Starting approximately 1-1/2 weeks ago patient's mom noted upper respiratory- like infection type symptoms. Later her daughter developed similar symptoms and they both went to an urgent care center yesterday and were notably positive for COVID. The were referred to the ED. Patient's symptoms include shortness of breath, wheezing, cough with minimal sputum production again, headache. Did have a elevated temperature of 102 F at home. Has been noted to be more lethargic and generally weak at home with poor balance. Her appetite has been poor and she is complaining of some diarrhea. While in the ED, patient was noted to be again positive for COVID. Chest x-ray showing chronic COPD like changes with flattening of the diaphragm and hyperinflation. Coarsened interstitium, consider COVID-pneumonia. No focal infiltrates or dense consolidations. CBC unremarkable, no leukocytosis. CMP: Sodium 133, potassium 4.4, chloride 106, serum bicarb 19, BUN 10, creatinine 0.77, glucose 98. Lactic was 0.7. LFTs unremarkable. Troponin less than 0.012. Urinalysis unremarkable for infection. VBG done earlier showing a pCO2 of 42 and pH of 7.26. Patient being evaluated in the ED, she is tired and lethargic. She does arouse and answer questioning and then falls back asleep. Lung sounds are coarse with wheezing. Did have an elevated temperature with a Tmax of 101 F previously in the ED. She has been started on empiric antibiotics in the ED in the form of azithromycin and Rocephin. Also started on albuterol inhaler with Symbicort inhaler and IV Solu- Medrol. Normal saline infusing at 100 ml/hr. Current vital signs: Temperature 97.8 F, heart rate 77 bpm, blood pressure 107/56 mmHg, SpO2 is 89% on 2 L/min nasal cannula. Review of Systems Constitutional: Reports chills, Reports fever, Reports lethargy, Reports poor appetite, Reports sweats, Reports weakness Ears, nose, mouth and throat: Reports headache, Reports nasal congestion, Reports nasal discharge, Denies post-nasal drip, Denies sinus pain, Denies sinus pressure, Denies sore throat Cardiovascular: Denies chest pain, Denies edema, Denies leg edema, Denies lightheadedness, Denies orthopnea, Denies palpitations, Denies paroxysmal nocturnal dyspnea, Denies syncope Respiratory: Reports congestion, Reports cough, Reports dyspnea, Reports respiratory infections, Reports wheezing, Denies cough with sputum, Denies excessive sputum, Denies home oxygen Gastrointestinal: Reports diarrhea, Denies abdominal pain, Denies constipation, Denies nausea, Denies vomiting Genitourinary: Denies dysuria Musculoskeletal: Denies limitation of motion Integumentary: Denies rash Neurological: Reports balance difficulties, Reports paresthesias, Reports seizures, Reports weakness, Denies confusion, Denies numbness, Denies paralysis, Denies syncope, Denies visual changes Psychiatric: Reports anxiety, Reports depression, Denies suicidal ideation Past Medical History Past Medical History: GERD/Reflux, Hearing Disorder / Deafness, Neurologic Disorder, Seizure Disorder Additional Past Medical History / Comment(s): having nausea and diarrhea, EPILEPSY, LAST SEIZURE 12/02/2018, Neuropathy arms & hands, memory issues History of Any Multi-Drug Resistant Organisms: None Reported Past Surgical History: Appendectomy, Hysterectomy, Orthopedic Surgery Additional Past Surgical History / Comment(s): RADIAL NERVE SURG [place]WICK. Past Anesthesia/Blood Transfusion Reactions: No Reported Reaction Past Psychological History: Anxiety, Bipolar, Depression Smoking Status: Current every day smoker Past Alcohol Use History: None Reported Past Drug Use History: Marijuana - Past Family History Father Family Medical History: Coronary Artery Disease (CAD) Additional Family Medical History / Comment(s): quadruple cabg, bipolar, ptsd Sister(s) Additional Family Medical History / Comment(s): ETOH bipolar Medications and Allergies Home Medications Medication Instructions Recorded Confirmed Type Topiramate [Topamax] 200 mg PO BID 06/24/20 10/17/24 History Albuterol Inhaler [Ventolin Hfa 2 puff INHALATION RT-QID PRN 10/11/22 10/17/24 History Inhaler] Fluticasone/Umeclidin/Vilanter 1 puff INHALATION RT-HS 10/11/22 10/17/24 History [Trelegy Ellipta 100-62.5-25] [place] Carbonate 300 mg PO BID 15 Days #30 cap 02/13/23 10/17/24 Rx busPIRone HCl [Buspar] 20 mg PO TID 15 Days #45 tab 02/13/23 10/17/24 Rx FLUoxetine HCL [PROzac] 40 mg PO DAILY 07/12/24 10/17/24 History clonazePAM [KlonoPIN] 1 mg PO BID 07/12/24 10/17/24 History diazePAM [Valtoco] 1 dose NASAL DIRECTED PRN 07/12/24 10/17/24 History haloperidoL [Haldol] 5 mg PO BID 07/12/24 10/17/24 History hydrOXYzine pamoate [Vistaril] 50 mg PO DAILY 07/12/24 10/17/24 History traZODone HCL [Desyrel] 200 mg PO HS 07/12/24 10/17/24 History Azithromycin [Zithromax Z Pack] 1 tab PO DIRECTED 4 Days #4 tab 10/16/24 Rx Magnesium Oxide [Trotter] 500 mg PO HS 10/17/24 10/17/24 History hydrOXYzine pamoate [Vistaril] 100 mg PO HS 10/17/24 10/17/24 History Allergies Allergy/AdvReac Type Severity Reaction Status Date / Time No Known Allergies Allergy Verified 10/17/24 08:00 Physical Exam Vitals: Vital Signs Temp Pulse Resp BP Pulse Ox 10/16/24 23:37 97.8 F 77 18 107/56 91 L 10/16/24 22:15 101.0 F H 79 18 115/66 89 L 10/16/24 18:07 20 10/16/24 17:10 99.4 F 82 20 132/79 95 Intake and Output 10/16/24 10/16/24 10/17/24 14:59 22:59 06:59 Output Total 650 Balance -650 Output: Urine 650 Straight 650 Other: Weight 72.121 kg GENERAL EXAM: Lethargic, 48-year-old female, awakens to verbal questioning and then quickly falls back to sleep without continuous stimulus HEAD: Normocephalic and atraumatic EYES: Normal reaction of pupils, equal size. NOSE: Clear with pink turbinates. THROAT: No erythema or exudates. Dry mucous membranes no nystagmus. Nonicteric sclera NECK: No masses, no JVD. CHEST: No chest wall deformity. LUNGS: Equal air entry with coarse lung sounds bilaterally throughout with expiratory wheezing. On 2 L/min nasal cannula. No conversational dyspnea or accessory muscle use.. CVS: S1 and S2 normal with no audible murmur, regular rhythm. No extra heart sounds ABDOMEN: No hepatosplenomegaly, active bowel sounds, no guarding or rigidity. SPINE: No scoliosis or deformity SKIN: No rashes CENTRAL NERVOUS SYSTEM: No focal deficits, tone is normal in all 4 extremities. EXTREMITIES: There is no peripheral edema, clubbing, or cyanosis. Peripheral pulses are intact. Results - Laboratory Findings CBC and BMP: 10/16/24 18:30 10/16/24 18:30 PT/INR, D-dimer PT 11.6 sec (10.0-12.5) 10/16/24 18:30 INR 1.1 (<1.2) 10/16/24 18:30 Abnormal lab findings: Abnormal Labs 10/16/24 10/16/24 10/16/24 18:30 18:30 18:30 Lymphocytes # 0.9 L VBG pH VBG pCO2 VBG HCO3 Sodium 133 L Carbon Dioxide 19 L SARS-CoV-2 (PCR) Detected A 10/16/24 10/17/24 18:30 00:53 Lymphocytes # VBG pH 7.26 L VBG pCO2 32 L VBG HCO3 18 L 19 L Sodium Carbon Dioxide SARS-CoV-2 (PCR) - Diagnostic Findings Chest x-ray: image reviewed Assessment and Plan Assessment: Acute hypoxemic respiratory failure, currently on 2 L/min nasal cannula, secondary to acute COVID-19 infection. Chest x-ray showing coarsened interstitium without focal infiltrates, consider COVID viral pneumonia. Moderate chronic obstructive pulmonary disease, with FEV1 65% of predicted, normally maintained on Trelegy inhaler, albuterol nebs [id number], and as needed albuterol HFA inhaler. Non-anion gap metabolic acidosis Current ongoing tobacco dependence, smokes approximately 1-1.5 and half packs per day. Chronic marijuana user History of cognitive deficit/impairment and epilepsy, last reported seizure was approximately 1-1/2 years ago History of bipolar disorder, major depression, and previous suicide attempt Plan: Patient's medications, labs, chest x-ray. No focal infiltrates. Coarsened interstitium. COVID-19 positive. Continue supplemental oxygen maintain oxygen saturation of 92% or greater Continue supportive care Combination of bronchodilators, Symbicort inhaler, and IV Solu-Medrol. May substitute Trelegy inhaler if made available As needed Tylenol for fevers Robitussin DM for cough Antibiotics previously started in ED, check procalcitonin, and manage accordingly Smoking cessation counseling performed greater than 3 minutes, nicotine patch offered. We will continue to follow I have personally seen and examined the patient, performed the documentation and the assessment and plan as written. Number of minutes spent on the visit:20 30 minutes. 48-year-old female patient with known history of this is a joint evaluation that was done along with the nurse practitioner. This evaluation was done more than COPD, in addition to cognitive impairment, history of bipolar disorder, epilepsy and history of smoking. The patient presented to the hospital as of lethargy, weakness and increased shortness of breath and cough. Noted her baseline FEV1 is in the order of 65% predicted and the patient has been maintained on Trelegy Ellipta as maintenance for her COPD. In the emergency department, the patient was on oxygen 2 L/min nasal cannula and she was able to maintain an oxygen level saturation above 90%. Chest x-ray was done and showed no acute abnormalities. The patient was febrile with a Tmax of 101. Viral 4 Plex was positive for COVID 19. Based on that, the patient was hospitalized. The patient was started on IV Solu-Medrol for COPD exacerbation 40 mg every 8 hours. The patient is currently on Symbicort and albuterol HFA 4 times a day. Nicotine patch was also applied. The white cell count is not elevated. Coagulation profile is within normal limits. Will check a baseline procalcitonin level. Will check D-dimers. Will monitor progress. Smoking cessation counseling. Nicotine patch. Resume home medications. Robitussin DM for cough and congestion. Time with Patient: Greater than 30
[2024-10-17] MEDS ORDERED: SYMBICORT 80-4.5 MCG INHALER INHALATION SCH (08:00)
[2024-10-17] MEDS: NICOTINE 21MG/24HR PATCH TRANSDERM SCH (08:10)
[2024-10-17] MEDS: AZITHROMYCIN 500 MG TAB PO SCH (08:18)
[2024-10-17] MEDS: clonazePAM 1 MG TAB PO SCH (08:36)
[2024-10-17] MEDS: TIOTROPIUM 2.5 MCG INHALER INHALATION SCH (08:39)
[2024-10-17] MEDS: ALBUTEROL HFA INHALER INHALATION SCH (08:39)
[2024-10-17] MEDS: SYMBICORT 160-4.5 MCG INHALER INHALATION SCH (08:39)
[2024-10-17] MEDS ORDERED: haloperidoL 5 MG TAB PO SCH (09:00)
[2024-10-17] MEDS ORDERED: LITHIUM CARBONATE 300 MG CAP PO SCH (09:00)
[2024-10-17] MEDS ORDERED: FLUoxetine HCL 20 MG CAP PO SCH (09:00)
[2024-10-17] MEDS ORDERED: busPIRone HCl 10 MG TAB PO SCH (09:00)
[2024-10-17] MEDS ORDERED: clonazePAM 1 MG TAB PO SCH (09:00)
[2024-10-17] MEDS ORDERED: hydrOXYzine HCL 25 MG TAB PO SCH (09:00)
[2024-10-17] MEDS ORDERED: MAGNESIUM OXIDE 400 MG TAB PO SCH (09:00)
[2024-10-17] MEDS ORDERED: BRIMONIDINE TARTRATE 0.2% DROPS 5 ML BTL BOTH EYES SCH (09:00)
--- NOTE | 2024-10-17 10:22 | P.HPIM ---
History of Present Illness H&P Date: 10/17/24 Vaishnavi Sanchez is a 48-year-old female patient of Dr. Stevenson who presented with complaints of 48-year-old female patient who presented with complaints of generalized weakness with recent diagnosis of COVID. Patient also noted to have increased forgetfulness. Patient does have a past medical history of epilepsy and COPD. Patient reports that her last seizure was over a year and a half ago. Additional medical history includes GERD, deafness, neuropathy, bipolar and current everyday smoker. Chest x-ray completed showing no acute cardiopulmonary disease or process. CT of the brain completed showing no acute intracranial process. CTA performed showing no evidence of dissection of the cervical internal carotid arteries no evidence of stenosis in the carotids no evidence of intracranial high-grade stenosis and lymphadenopathy throughout the mediastinum with scattered interstitial opacities correlate for underlying atypical pneumonia further workup of the chest should be considered. Lab work completed showing white blood cell 9.5, hemoglobin 12.8, D-dimer 0.56. pH 7.26 pCO2 42, HCO3 19. Patient negative for influenza and RSV. Patient is positive for COVID-19. At this time patient has been admitted patient started on IV Solu- Medrol, Zithromax and Rocephin. Pulmonary and neurology services have been consulted. Current vital signs temp 98.3, heart 61, respiratory rate 16, blood pressure 114/64 with a pulse ox of 92% on 2 L Review of Systems Please refer to HPI otherwise unremarkable Past Medical History Past Medical History: GERD/Reflux, Hearing Disorder / Deafness, Neurologic Disorder, Seizure Disorder Additional Past Medical History / Comment(s): having nausea and diarrhea, E PILEPSY, LAST SEIZURE 12/02/2018, Neuropathy arms & hands, memory issues History of Any Multi-Drug Resistant Organisms: None Reported Past Surgical History: Appendectomy, Hysterectomy, Orthopedic Surgery Additional Past Surgical History / Comment(s): RADIAL NERVE SURG [place]. Past Anesthesia/Blood Transfusion Reactions: No Reported Reaction Past Psychological History: Anxiety, Bipolar, Depression Smoking Status: Current every day smoker Past Alcohol Use History: None Reported Past Drug Use History: Marijuana - Past Family History Father Family Medical History: Coronary Artery Disease (CAD) Additional Family Medical History / Comment(s): quadruple cabg, bipolar, ptsd Sister(s) Additional Family Medical History / Comment(s): ETOH bipolar Medications and Allergies Home Medications Medication Instructions Recorded Confirmed Type Topiramate [Topamax] 200 mg PO BID 06/24/20 10/17/24 History Albuterol Inhaler [Ventolin Hfa 2 puff INHALATION RT-QID PRN 10/11/22 10/17/24 History Inhaler] Fluticasone/Umeclidin/Vilanter 1 puff INHALATION RT-HS 10/11/22 10/17/24 History [Trelegy Ellipta 100-62.5-25] [place] Carbonate 300 mg PO BID 15 Days #30 cap 02/13/23 10/17/24 Rx busPIRone HCl [Buspar] 20 mg PO TID 15 Days #45 tab 02/13/23 10/17/24 Rx FLUoxetine HCL [PROzac] 40 mg PO DAILY 07/12/24 10/17/24 History clonazePAM [KlonoPIN] 1 mg PO BID 07/12/24 10/17/24 History diazePAM [Valtoco] 1 dose NASAL DIRECTED PRN 07/12/24 10/17/24 History haloperidoL [Haldol] 5 mg PO BID 07/12/24 10/17/24 History hydrOXYzine pamoate [Vistaril] 50 mg PO DAILY 07/12/24 10/17/24 History traZODone HCL [Desyrel] 200 mg PO HS 07/12/24 10/17/24 History Azithromycin [Zithromax Z Pack] 1 tab PO DIRECTED 4 Days #4 tab 10/16/24 Rx Magnesium Oxide [Trotter] 500 mg PO HS 10/17/24 10/17/24 History hydrOXYzine pamoate [Vistaril] 100 mg PO HS 10/17/24 10/17/24 History Allergies Allergy/AdvReac Type Severity Reaction Status Date / Time No Known Allergies Allergy Verified 10/17/24 08:00 Physical Exam Vitals: Vital Signs Temp Pulse Resp BP Pulse Ox 10/17/24 08:40 93 L 10/17/24 08:00 98.3 F 61 16 114/64 92 L 10/17/24 06:57 97.8 F 60 18 109/64 92 L 10/16/24 23:37 97.8 F 77 18 107/56 91 L 10/16/24 22:15 101.0 F H 79 18 115/66 89 L 10/16/24 18:07 20 10/16/24 17:10 99.4 F 82 20 132/79 95 Intake and Output 10/16/24 10/17/24 10/17/24 22:59 06:59 14:59 Output Total 650 Balance -650 Output: Urine 650 Straight 650 Other: Weight 72.121 kg Head normocephalic Neck supple Lungs bilaterally Heart regular rate and rhythm S1-S2, no rub or gallop Abdomen is soft nontender nondistended positive bowel sounds no hepatosplenomegaly Extremities no edema Neuro alert and orientated to 3 Results CBC & Chem 7: 10/16/24 18:30 10/16/24 18:30 Labs: Abnormal Lab Results - Last 24 Hours (Table) 10/16/24 10/16/24 10/16/24 Range/Units 18:30 18:30 18:30 Lymphocytes # 0.9 L (1.0-4.8) k/uL VBG pH (7.31-7.41) VBG pCO2 (37-51) mmHg VBG HCO3 (24-28) mmol/L Sodium 133 L (137-145) mmol/L Carbon Dioxide 19 L (22-30) mmol/L SARS-CoV-2 (PCR) Detected A (Not Detectd) 10/16/24 10/17/24 Range/Units 18:30 00:53 Lymphocytes # (1.0-4.8) k/uL VBG pH 7.26 L (7.31-7.41) VBG pCO2 32 L (37-51) mmHg VBG HCO3 18 L 19 L (24-28) mmol/L Sodium (137-145) mmol/L Carbon Dioxide (22-30) mmol/L SARS-CoV-2 (PCR) (Not Detectd) Assessment and Plan Assessment: 1. Acute COVID-19 infection 2. Acute COVID-19 pneumonia 3. Altered mental status changes. These seem to have resolved neurology services consulted 4. History of ongoing nicotine dependence 5. Chronic marijuana use 6. History of epilepsy 7. History of bipolar disorder and depression with previous suicide attempt DVT prophylaxis Lovenox. GI prophylaxis Pepcid pulmonary and neurology services consulted Patient started on IV Solu-Medrol and IV antibiotics Repeat labs ordered Time with Patient: Greater than 30 (Greater than 60% of the total time spent in counseling and coordination of care)
[2024-10-17] MEDS ORDERED: traZODone HCL 100 MG TAB PO SCH (21:00)
[2024-10-17] MEDS ORDERED: TOPIRAMATE 100 MG TAB PO SCH (21:00)
[2024-10-17] MEDS: traZODone HCL 100 MG TAB PO SCH (22:51)
[2024-10-17] MEDS: TOPIRAMATE 100 MG TAB PO SCH (22:51)
[2024-10-18] MEDS: FAMOTIDINE 20 MG TAB PO SCH (08:30)
[2024-10-18] MEDS: ENOXAPARIN 40 MG/0.4 ML SYRINGE SQ SCH (08:30)
[2024-10-18 09:23] LABS: Basophils # (A) 0.02 X 10*3/uL (0.00-0.10); Basophils % (A) 0.2 %; Eosinophils # (A) 0 X 10*3/uL (0.04-0.35); Eosinophils % (A) 0 %; HGB 13.4 g/dL (12.0-15.0); Lymphocytes # (A) 1.52 X 10*3/uL (0.90-5.00); Lymphocytes % (A) 12.4 %; MCH 31.4 pg (27.0-32.0); MCHC 31.9 g/dL (32.0-37.0); MCV 98.4 FL (80.0-97.0); Mean Platelet Volume 10.6 FL (9.5-12.2); Monocytes % (A) 2.5 %; NRBC Per 100 WBC 0 X 10*3/uL (0.00-0.01); Neutrophils # (A) 10.36 X 10*3/uL (1.80-7.70); Neutrophils % (A) 84.6 %; Platelet Count 259 X 10*3/uL (140-440); RBC 4.27 X 10*6/uL (4.10-5.20); WBC 12.24 X 10*3/uL (4.50-10.00)
--- NOTE | 2024-10-18 10:06 | P.CNNES ---
History of Present Illness Consult date: 10/17/24 Requesting physician: Fernando Beltrán Reason for Consult: Lethargy, dizziness, headache History of Present Illness: Patient is a 48-year-old female came to the hospital yesterday at 5:04 PM for acute COVID infection, dizziness, balance disorder and a headache. Patient states she has history of headache for about 1 year, involves bifrontal temporal region and around the eyes. She was seen by monotypist, and was told that her pressure is high, and underwent placing "holes" in both eyes to help with pressure. I asked patient if she has been told about glaucoma, but she does not know. I suspect she may have glaucoma and underwent some eye procedure. She had pressure in the eyes. At present patient has no headache. Patient denies any dizziness at this time. She was just off balance yesterday likely from acute COVID infection and possible some vestibular dysfunction. 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 Vital signs on arrival blood pressure 132/79, pulse 82 temperature 98.4. Tmax 101.0. Blood test shows normal CBC, PT PTT, normal electrolytes with sodium 133. Renal functions, hepatic panel, troponin normal. UA negative. Influenza and RSV negative. SARS-CoV-2 PCR positive. Chest x-ray shows no acute cardiopulmonary disease. CT head showed no acute intracranial process. I personally reviewed CT head, agree with the findings. CTA of head and neck revealed no evidence of dissection of the cervical internal carotid arteries or vertebral arteries. No evidence of significant stenosis at the carotid bifurcation. No evidence of intracranial high-grade stenosis or intracranial aneurysm. Lymphadenopathy throughout the mediastinum with scattered interstitial opacities, correlate for underlying atypical pneumonia. Patient has been seen by myself for mental status change on 06/25/2020 and was found to be related to medication side effect. Patient is on numerous psychoactive medications. Patient had persistent nausea and diarrhea possibly from medication side effect. Patient has seizure disorder, well-controlled on the medication at the time. Patient has smoked 1 pack/day since age 11. She used to drink alcohol. Quit drinking alcohol last year. She has bipolar disorder. Review of Systems All pertinent positive and negative review of systems mentioned in the HPI. Past Medical History Past Medical History: GERD/Reflux, Hearing Disorder / Deafness, Neurologic Disorder, Seizure Disorder Additional Past Medical History / Comment(s): having nausea and diarrhea, EPILEPSY, LAST SEIZURE 12/02/2018, Neuropathy arms & hands, memory issues History of Any Multi-Drug Resistant Organisms: None Reported Past Surgical History: Appendectomy, Hysterectomy, Orthopedic Surgery Additional Past Surgical History / Comment(s): RADIAL NERVE SURG [place]. Past Anesthesia/Blood Transfusion Reactions: No Reported Reaction Past Psychological History: Anxiety, Bipolar, Depression Smoking Status: Current every day smoker Past Alcohol Use History: None Reported Past Drug Use History: Marijuana - Past Family History Father Family Medical History: Coronary Artery Disease (CAD) Additional Family Medical History / Comment(s): quadruple cabg, bipolar, ptsd Sister(s) Additional Family Medical History / Comment(s): ETOH bipolar Medications and Allergies Home Medications Medication Instructions Recorded Confirmed Type Topiramate [Topamax] 200 mg PO BID 06/24/20 10/17/24 History Albuterol Inhaler [Ventolin Hfa 2 puff INHALATION RT-QID PRN 10/11/22 10/17/24 History Inhaler] Fluticasone/Umeclidin/Vilanter 1 puff INHALATION RT-HS 10/11/22 10/17/24 History [Trelegy Ellipta 100-62.5-25] [place] Carbonate 300 mg PO BID 15 Days #30 cap 02/13/23 10/17/24 Rx busPIRone HCl [Buspar] 20 mg PO TID 15 Days #45 tab 02/13/23 10/17/24 Rx FLUoxetine HCL [PROzac] 40 mg PO DAILY 07/12/24 10/17/24 History clonazePAM [KlonoPIN] 1 mg PO BID 07/12/24 10/17/24 History diazePAM [Valtoco] 1 dose NASAL DIRECTED PRN 07/12/24 10/17/24 History haloperidoL [Haldol] 5 mg PO BID 07/12/24 10/17/24 History hydrOXYzine pamoate [Vistaril] 50 mg PO DAILY 07/12/24 10/17/24 History traZODone HCL [Desyrel] 200 mg PO HS 07/12/24 10/17/24 History Azithromycin [Zithromax Z Pack] 1 tab PO DIRECTED 4 Days #4 tab 10/16/24 Rx Magnesium Oxide [Trotter] 500 mg PO HS 10/17/24 10/17/24 History hydrOXYzine pamoate [Vistaril] 100 mg PO HS 10/17/24 10/17/24 History Allergies Allergy/AdvReac Type Severity Reaction Status Date / Time No Known Allergies Allergy Verified 10/17/24 08:00 Physical Examination - Vital Signs Vital Signs: Vital Signs Temp Pulse Resp BP Pulse Ox 10/17/24 20:41 60 18 114/58 95 10/17/24 13:00 75 20 104/58 94 L 10/17/24 10:33 58 L 16 106/57 10/17/24 08:40 93 L 10/17/24 08:00 98.3 F 61 16 114/64 92 L 10/17/24 06:57 97.8 F 60 18 109/64 92 L 10/16/24 23:37 97.8 F 77 18 107/56 91 L 10/16/24 22:15 101.0 F H 79 18 115/66 89 L Intake and Output 10/17/24 10/17/24 10/17/24 06:59 14:59 22:59 Output Total 650 Balance -650 Output: Urine 650 Straight 650 Patient is a middle aged female, no acute distress. Patient is alert awake oriented to time place and person. She knows it is 10/17/2024 and that she is in [facility] in [facility]. Speech and language functions are normal. Patient can name and repeat very well. No aphasia or dysarthria. Attention, concentration and fund of knowledge is adequate. On cranial nerve examination, pupils are equal, round and reacting to light, visual younger are full on confrontation, with no neglect on double simultaneous stimulation. Extraocular muscles are intact with no nystagmus. Face is symmetric, tongue protrudes to the midline. Palatal elevation and sensation normal, hearing and shoulder shrug normal, facial sensation normal. On muscle strength testing, there is no pronator drift and the strength is normal in arms and legs distally and proximally. Deep tendon reflexes are symmetric trace to 1 in the arms and legs and plantars are flat. Sensory to touch is equal with no neglect on double simultaneous stimulation. Cerebellar function showed no ataxia for [id number] testing. No dysdi adochokinesia. No ataxia for [id number] testing on either side. Tone and bulk of muscles normal. Gait deferred.. On general examination, there is no carotid bruit or murmur, S1-S2 audible. Chest is clear on consultation. Abdomen is soft nontender. No organomegaly, bowel sounds present. Peripheral pulses are present. No peripheral edema. Results - Laboratory Findings CBC and BMP: 10/18/24 03:53 10/16/24 18:30 Abnormal Lab Findings: Abnormal Labs 10/16/24 10/16/24 10/16/24 18:30 18:30 18:30 Lymphocytes # 0.9 L VBG pH VBG pCO2 VBG HCO3 Sodium 133 L Carbon Dioxide 19 L SARS-CoV-2 (PCR) Detected A 10/16/24 10/17/24 18:30 00:53 Lymphocytes # VBG pH 7.26 L VBG pCO2 32 L VBG HCO3 18 L 19 L Sodium Carbon Dioxide SARS-CoV-2 (PCR) Assessment and Plan Assessment: * Lethargy, dizziness and headaches, likely due to acute COVID infection with some associated upper respiratory tract congestion leading to above symptoms. All symptoms have resolved at this time. * Acute COVID infection * History of chronic headaches related to "pressure in the eyes", follows up with monotypist. * Tobacco use * Seizure disorder * Bipolar disorder Plan: * Patient's states her headache has resolved. * Patient's dizziness has resolved. * Patient's lethargy has resolved. Patient is fully alert and awake oriented. * Recommend patient follow-up with her monotypist regarding "eye pressure". * Treatment of COVID infection and other respiratory conditions as per IM and pulmonary medicine. * Neurology will sign off. Please reconsult neurology if any concerns. * Thank you for the consult.
[2024-10-18 10:19] LABS: ALT 12 U/L (8-44); AST 24 U/L (13-35); Albumin 3.8 g/dL (3.8-4.9); Albumin/Globulin Ratio 1.31 Ratio (1.60-3.17); Alkaline Phosphatase 79 U/L (41-126); Blood Urea Nitrogen 11.6 mg/dL (9.0-27.0); Carbon Dioxide 17.6 mmol/L (21.6-31.8); Chloride 112 mmol/L (96-109); Globulin 2.9 g/dL (1.6-3.3); Glucose 130 mg/dL (70-110); Potassium 4.9 mmol/L (3.5-5.5); Sodium 141 mmol/L (135-145); Total Bilirubin <0.2 mg/dL (0.3-1.2); Total Protein 6.7 g/dL (6.2-8.2)
--- NOTE | 2024-10-18 12:42 | P.PN ---
Subjective Progress Note Date: 10/18/24 Vaishnavi Sanchez is a 48-year-old female patient of Dr. Stevenson who presented with complaints of 48-year-old female patient who presented with complaints of generalized weakness with recent diagnosis of COVID. Patient also noted to have increased forgetfulness. Patient does have a past medical history of epilepsy and COPD. Patient reports that her last seizure was over a year and a half ago. Additional medical history includes GERD, deafness, neuropathy, bipolar and current everyday smoker. Chest x-ray completed showing no acute cardiopulmonary disease or process. CT of the brain completed showing no acute intracranial process. CTA performed showing no evidence of dissection of the cervical int ernal carotid arteries no evidence of stenosis in the carotids no evidence of intracranial high-grade stenosis and lymphadenopathy throughout the mediastinum with scattered interstitial opacities correlate for underlying atypical pneumonia further workup of the chest should be considered. Lab work completed showing white blood cell 9.5, hemoglobin 12.8, D-dimer 0.56. pH 7.26 pCO2 42, HCO3 19. Patient negative for influenza and RSV. Patient is positive for COVID-19. At this time patient has been admitted patient started on IV Solu- Medrol, Zithromax and Rocephin. Pulmonary and neurology services have been consulted. Current vital signs temp 98.3, heart 61, respiratory rate 16, blood pressure 114/64 with a pulse ox of 92% on 2 L On 10/18/2024 patient was seen and examined on the medical floor she is alert and oriented x 3 she is still complaining of cough and shortness of breath with any activity otherwise she denies any complaints there is no fever or chills no headache or dizziness no chest pain no nausea or vomiting no abdominal pain no diarrhea and no urinary symptoms. Objective - Vital Signs Vital signs: Vital Signs Temp 98.0 F 10/18/24 07:53 Pulse 60 10/18/24 07:53 Resp 18 10/18/24 07:53 BP 113/71 10/18/24 07:53 Pulse Ox 91 L 10/18/24 07:53 FiO2 Intake & Output 10/17/24 10/18/24 10/18/24 18:59 06:59 18:59 Weight 78 kg Other: Voiding Method Toilet # Voids 2 3 - Exam Head normocephalic Neck supple Lungs bilaterally Heart regular rate and rhythm S1-S2, no rub or gallop Abdomen is soft nontender nondistended positive bowel sounds no hepatosplenomegaly Extremities no edema Neuro alert and orientated to 3 - Labs CBC & Chem 7: 10/18/24 03:53 10/18/24 03:53 Labs: Abnormal Lab Results - Last 24 Hours (Table) 10/18/24 10/18/24 Range/Units 03:53 03:53 WBC 12.24 H (4.50-10.00) X 10*3/uL MCV 98.4 H (80.0-97.0) FL MCHC 31.9 L (32.0-37.0) g/dL Neutrophils # 10.36 H (1.80-7.70) X 10*3/uL Eosinophils # 0 L (0.04-0.35) X 10*3/uL Chloride 112 H (96-109) mmol/L Carbon Dioxide 17.6 L (21.6-31.8) mmol/L Creatinine 0.5 L (0.6-1.5) mg/dL BUN/Creatinine Ratio 23.20 H (12.00-20.00) Ratio Glucose 130 H (70-110) mg/dL Total Bilirubin <0.2 L (0.3-1.2) mg/dL Albumin/Globulin Ratio 1.31 L (1.60-3.17) Ratio Microbiology - Last 24 Hours (Table) 10/16/24 20:15 Blood Culture - Preliminary Blood Assessment and Plan Assessment: 1. Acute COVID-19 infection 2. Acute COVID-19 pneumonia 3. Altered mental status changes. These seem to have resolved neurology services consulted 4. History of ongoing nicotine dependence 5. Chronic marijuana use 6. History of epilepsy 7. History of bipolar disorder and depression with previous suicide attempt DVT prophylaxis Lovenox. GI prophylaxis Pepcid pulmonary and neurology services consulted Patient started on IV Solu-Medrol and IV antibiotics Repeat labs ordered
--- NOTE | 2024-10-18 13:42 | P.PN ---
Subjective Progress Note Date: 10/18/24 Patient is a 48-year-old female with past medical history significant for COPD, cognitive impairment, bipolar disorder, epilepsy, and chronic ongoing tobacco dependence. Her primary care provider is Dr. Singh. She does follow in the pulmonary office for her moderate COPD. She has an FEV1 65% of predicted. She uses combination of Trelegy inhaler, albuterol nebs, and as need albuterol inhaler. She continues to smoke approximately 1-1.5 and half packs per day Patient lives with her mother, she reportedly has cognitive deficit/impairment acquired at . She also has history of epilepsy, but has not had a seizure in over 1-1/2 years. Patient's mother is at bedside and offers information. St arting approximately 1-1/2 weeks ago patient's mom noted upper respiratory-like infection type symptoms. Later her daughter developed similar symptoms and they both went to an urgent care center yesterday and were notably positive for COVID. The were referred to the ED. Patient's symptoms include shortness of breath, wheezing, cough with minimal sputum production again, headache. Did have a elevated temperature of 102 F at home. Has been noted to be more lethargic and generally weak at home with poor balance. Her appetite has been poor and she is complaining of some diarrhea. While in the ED, patient was noted to be again positive for COVID. Chest x-ray showing chronic COPD like changes with flattening of the diaphragm and hyperinflation. Coarsened interstitium, consider COVID-pneumonia. No focal infiltrates or dense consolidations. CBC unremarkable, no leukocytosis. CMP: Sodium 133, potassium 4.4, chloride 106, serum bicarb 19, BUN 10, creatinine 0.77, glucose 98. Lactic was 0.7. LFTs unremarkable. Troponin less than 0.012. Urinalysis unremarkable for infection. VBG done earlier showing a pCO2 of 42 and pH of 7.26. Patient being evaluated in the ED, she is tired and lethargic. She does arouse and answer questioning and then falls back asleep. Lung sounds are coarse with wheezing. Did have an elevated temperature with a Tmax of 101 F previously in the ED. She has been started on empiric antibiotics in the ED in the form of azithromycin and Rocephin. Also started on albuterol inhaler with Symbicort inhaler and IV Solu- Medrol. Normal saline infusing at 100 ml/hr. Current vital signs: Temperature 97.8 F, heart rate 77 bpm, blood pressure 107/56 mmHg, SpO2 is 89% on 2 L/min nasal cannula. On 10/18/2024, the patient is doing well. Feeling better compared to yesterday and she is currently on room air oxygen. She remains on Symbicort, Ventolin HFA 4 times a day [id number] and Spiriva 2 puffs once a day. She is on Robitussin for cough and congestion. She remains on IV Solu-Medrol 40 mg every 8 hours. White cell count is at 12 with a hemoglobin 13.4 and platelet count of 259. Sodium is at 141, potassium level is at 4.9, bicarb is at 17, LFTs are essentially within normal limits. Procalcitonin level is at 0.08. Objective - Vital Signs Vital signs: Vital Signs Temp 98.0 F 10/18/24 07:53 Pulse 60 10/18/24 07:53 Resp 18 10/18/24 07:53 BP 113/71 10/18/24 07:53 Pulse Ox 91 L 10/18/24 07:53 FiO2 Intake & Output 10/17/24 10/18/24 10/18/24 18:59 06:59 18:59 Weight 78 kg Other: Voiding Method Toilet # Voids 2 - Exam GENERAL EXAM: Lethargic, 48-year-old female, awakens to verbal questioning and then quickly falls back to sleep without continuous stimulus patient is currently on room air oxygen HEAD: Normocephalic and atraumatic EYES: Normal reaction of pupils, equal size. NOSE: Clear with pink turbinates. THROAT: No erythema or exudates. Dry mucous membranes no nystagmus. Nonicteric sclera NECK: No masses, no JVD. CHEST: No chest wall deformity. LUNGS: Equal air entry with coarse lung sounds bilaterally throughout with expiratory wheezing. No conversational dyspnea or accessory muscle use.. CVS: S1 and S2 normal with no audible murmur, regular rhythm. No extra heart sounds ABDOMEN: No hepatosplenomegaly, active bowel sounds, no guarding or rigidity. SPINE: No scoliosis or deformity SKIN: No rashes CENTRAL NERVOUS SYSTEM: No focal deficits, tone is normal in all 4 extremities. EXTREMITIES: There is no peripheral edema, clubbing, or cyanosis. Peripheral pulses are intact. - Labs CBC & Chem 7: 10/18/24 03:53 10/18/24 03:53 Labs: Abnormal Lab Results - Last 24 Hours (Table) 10/18/24 Range/Units 03:53 WBC 12.24 H (4.50-10.00) X 10*3/uL MCV 98.4 H (80.0-97.0) FL MCHC 31.9 L (32.0-37.0) g/dL Neutrophils # 10.36 H (1.80-7.70) X 10*3/uL Eosinophils # 0 L (0.04-0.35) X 10*3/uL Microbiology - Last 24 Hours (Table) 10/16/24 20:15 Blood Culture - Preliminary Blood Assessment and Plan Assessment: Acute hypoxemic respiratory failure, secondary to COVID-19 infection, currently on room air oxygen. Chest x-ray showing coarsened interstitium without focal infiltrates, consider COVID viral pneumonia. Patient is on IV Solu-Medrol. Acute exacerbation of COPD secondary to above Moderate chronic obstructive pulmonary disease, with FEV1 65% of predicted, normally maintained on Trelegy inhaler, albuterol nebs [id number], and as needed albuterol HFA inhaler. Non-anion gap metabolic acidosis Current ongoing tobacco dependence, smokes approximately 1-1.5 and half packs per day. Chronic marijuana user History of cognitive deficit/impairment and epilepsy, last reported seizure was approximately 1-1/2 years ago History of bipolar disorder, major depression, and previous suicide attempt Plan: Clinically stable Currently on room air oxygen Chest x-ray from admission show no focal infiltrates. Coarsened interstitium. COVID-19 positive. Continue supplemental oxygen maintain oxygen saturation of 92% or greater Continue supportive care Combination of bronchodilators, Symbicort inhaler, and IV Solu-Medrol. May substitute Trelegy inhaler if made available As needed Tylenol for fevers Robitussin DM for cough Antibiotics previously started in ED, procalcitonin level is not elevated and antibiotics can be potentially discontinued D-dimer is not elevated and the patient is on Lovenox for DVT prophylaxis Smoking cessation counseling performed greater than 3 minutes, nicotine patch offered. We will continue to follow
[2024-10-18] MEDS: ACETAMINOPHEN TAB 325 MG TAB PO PRN (15:01)
[2024-10-19 09:28] LABS: Basophils # (A) 0.04 X 10*3/uL (0.00-0.10); Basophils % (A) 0.3 %; Eosinophils # (A) 0.01 X 10*3/uL (0.04-0.35); Eosinophils % (A) 0.1 %; HCT 43.2 % (37.2-46.3); HGB 13.4 g/dL (12.0-15.0); Lymphocytes # (A) 3.19 X 10*3/uL (0.90-5.00); Lymphocytes % (A) 23.1 %; MCH 30.2 pg (27.0-32.0); MCV 97.5 FL (80.0-97.0); Mean Platelet Volume 10.6 FL (9.5-12.2); Monocytes # (A) 0.55 X 10*3/uL (0.20-1.00); NRBC Per 100 WBC 0 X 10*3/uL (0.00-0.01); Neutrophils # (A) 9.97 X 10*3/uL (1.80-7.70); Neutrophils % (A) 72.1 %; Platelet Count 270 X 10*3/uL (140-440); RBC 4.43 X 10*6/uL (4.10-5.20); RDW 14.3 % (11.5-14.5); WBC 13.82 X 10*3/uL (4.50-10.00)
[2024-10-19 09:42] LABS: ALT 15 U/L (8-44); AST 24 U/L (13-35); Albumin 3.9 g/dL (3.8-4.9); Albumin/Globulin Ratio 1.39 Ratio (1.60-3.17); Alkaline Phosphatase 80 U/L (41-126); Blood Urea Nitrogen 7.8 mg/dL (9.0-27.0); Carbon Dioxide 18.2 mmol/L (21.6-31.8); Chloride 115 mmol/L (96-109); Globulin 2.8 g/dL (1.6-3.3); Glucose 107 mg/dL (70-110); Potassium 4.2 mmol/L (3.5-5.5); Sodium 144 mmol/L (135-145); Total Bilirubin <0.2 mg/dL (0.3-1.2); Total Protein 6.7 g/dL (6.2-8.2)
--- NOTE | 2024-10-19 10:21 | P.PN ---
Subjective Progress Note Date: 10/19/24 Vaishnavi Sanchez is a 48-year-old female patient of Dr. Stevenson who presented with complaints of 48-year-old female patient who presented with complaints of generalized weakness with recent diagnosis of COVID. Patient also noted to have increased forgetfulness. Patient does have a past medical history of epilepsy and COPD. Patient reports that her last seizure was over a year and a half ago. Additional medical history includes GERD, deafness, neuropathy, bipolar and current everyday smoker. Chest x-ray completed showing no acute cardiopulmonary disease or process. CT of the brain completed showing no acute intracranial process. CTA performed showing no evidence of dissection of the cervical inte rnal carotid arteries no evidence of stenosis in the carotids no evidence of intracranial high-grade stenosis and lymphadenopathy throughout the mediastinum with scattered interstitial opacities correlate for underlying atypical pneumonia further workup of the chest should be considered. Lab work completed showing white blood cell 9.5, hemoglobin 12.8, D-dimer 0.56. pH 7.26 pCO2 42, HCO3 19. Patient negative for influenza and RSV. Patient is positive for COVID-19. At this time patient has been admitted patient started on IV Solu- Medrol, Zithromax and Rocephin. Pulmonary and neurology services have been consulted. Current vital signs temp 98.3, heart 61, respiratory rate 16, blood pressure 114/64 with a pulse ox of 92% on 2 L On 10/18/2024 patient was seen and examined on the medical floor she is alert and oriented x 3 she is still complaining of cough and shortness of breath with any activity otherwise she denies any complaints there is no fever or chills no headache or dizziness no chest pain no nausea or vomiting no abdominal pain no diarrhea and no urinary symptoms. On 10/19/2024 patient is alert and oriented x 3. Patient still complaining of some cough throughout the night. Per neurology no further workup. Patient remains on IV steroids and antibiotic. Awaiting further input from pulmonary services. Patient denies chest pain. Patient denies nausea vomiting or d iarrhea. Patient denies any urinary burning or frequency. Current vital signs temp 98.4, heart rate 59, respiratory rate 16, blood pressure 106/66 with a pulse ox of 95% on room air Objective - Vital Signs Vital signs: Vital Signs Temp 98.4 F 10/19/24 07:38 Pulse 59 L 10/19/24 07:38 Resp 16 10/19/24 07:38 BP 106/66 10/19/24 07:38 Pulse Ox 95 10/19/24 07:38 FiO2 Intake & Output 10/18/24 10/19/24 10/19/24 18:59 06:59 18:59 Other: Voiding Method Toilet # Voids 4 2 # Bowel Movements 1 - Exam Head normocephalic Neck supple Lungs bilaterally Heart regular rate and rhythm S1-S2, no rub or gallop Abdomen is soft nontender nondistended positive bowel sounds no hepatosplenomegaly Extremities no edema Neuro alert and orientated to 3 - Labs CBC & Chem 7: 10/19/24 03:07 10/19/24 03:07 Labs: Abnormal Lab Results - Last 24 Hours (Table) 10/18/24 10/19/24 10/19/24 Range/Units 03:53 03:07 03:07 WBC 13.82 H (4.50-10.00) X 10*3/uL MCV 97.5 H (80.0-97.0) FL MCHC 31.0 L (32.0-37.0) g/dL Immature Gran # 0.06 H (0.00-0.04) X 10*3/uL Neutrophils # 9.97 H (1.80-7.70) X 10*3/uL Eosinophils # 0.01 L (0.04-0.35) X 10*3/uL Chloride 112 H 115 H (96-109) mmol/L Carbon Dioxide 17.6 L 18.2 L (21.6-31.8) mmol/L BUN 7.8 L (9.0-27.0) mg/dL Creatinine 0.5 L (0.6-1.5) mg/dL BUN/Creatinine Ratio 23.20 H (12.00-20.00) Ratio Glucose 130 H (70-110) mg/dL Total Bilirubin <0.2 L <0.2 L (0.3-1.2) mg/dL Albumin/Globulin Ratio 1.31 L 1.39 L (1.60-3.17) Ratio Microbiology - Last 24 Hours (Table) 10/16/24 20:15 Blood Culture - Preliminary Blood Assessment and Plan Assessment: 1. Acute COVID-19 infection 2. Acute COVID-19 pneumonia 3. Altered mental status changes. These seem to have resolved neurology services consulted 4. History of ongoing nicotine dependence 5. Chronic marijuana use 6. History of epilepsy 7. History of bipolar disorder and depression with previous suicide attempt DVT prophylaxis Lovenox. GI prophylaxis Pepcid pulmonary and neurology services consulted Patient started on IV Solu-Medrol and IV antibiotics Repeat labs ordered
--- NOTE | 2024-10-19 13:20 | P.PN ---
Subjective Progress Note Date: 10/19/24 Patient is a 48-year-old female with past medical history significant for COPD, cognitive impairment, bipolar disorder, epilepsy, and chronic ongoing tobacco dependence. Her primary care provider is Dr. Singh. She does follow in the pulmonary office for her moderate COPD. She has an FEV1 65% of predicted. She uses combination of Trelegy inhaler, albuterol nebs, and as need albuterol inhaler. She continues to smoke approximately 1-1.5 and half packs per day Patient lives with her mother, she reportedly has cognitive deficit/impairment acquired at . She also has history of epilepsy, but has not had a seizure in over 1-1/2 years. Patient's mother is at bedside and offers information. St arting approximately 1-1/2 weeks ago patient's mom noted upper respiratory-like infection type symptoms. Later her daughter developed similar symptoms and they both went to an urgent care center yesterday and were notably positive for COVID. The were referred to the ED. Patient's symptoms include shortness of breath, wheezing, cough with minimal sputum production again, headache. Did have a elevated temperature of 102 F at home. Has been noted to be more lethargic and generally weak at home with poor balance. Her appetite has been poor and she is complaining of some diarrhea. While in the ED, patient was noted to be again positive for COVID. Chest x-ray showing chronic COPD like changes with flattening of the diaphragm and hyperinflation. Coarsened interstitium, consider COVID-pneumonia. No focal infiltrates or dense consolidations. CBC unremarkable, no leukocytosis. CMP: Sodium 133, potassium 4.4, chloride 106, serum bicarb 19, BUN 10, creatinine 0.77, glucose 98. Lactic was 0.7. LFTs unremarkable. Troponin less than 0.012. Urinalysis unremarkable for infection. VBG done earlier showing a pCO2 of 42 and pH of 7.26. Patient being evaluated in the ED, she is tired and lethargic. She does arouse and answer questioning and then falls back asleep. Lung sounds are coarse with wheezing. Did have an elevated temperature with a Tmax of 101 F previously in the ED. She has been started on empiric antibiotics in the ED in the form of azithromycin and Rocephin. Also started on albuterol inhaler with Symbicort inhaler and IV Solu- Medrol. Normal saline infusing at 100 ml/hr. Current vital signs: Temperature 97.8 F, heart rate 77 bpm, blood pressure 107/56 mmHg, SpO2 is 89% on 2 L/min nasal cannula. On 10/18/2024, the patient is doing well. Feeling better compared to yesterday and she is currently on room air oxygen. She remains on Symbicort, Ventolin HFA 4 times a day [id number] and Spiriva 2 puffs once a day. She is on Robitussin for cough and congestion. She remains on IV Solu-Medrol 40 mg every 8 hours. White cell count is at 12 with a hemoglobin 13.4 and platelet count of 259. Sodium is at 141, potassium level is at 4.9, bicarb is at 17, LFTs are essentially within normal limits. Procalcitonin level is at 0.08. 10/19/2024, the patient is being seen for a follow-up. She is currently on room air oxygen. Continues to have some limited cough and wheeze. Maintained on Symbicort. Maintained on IV Solu-Medrol 40 mg every 8 hours. She is also on broad-spectrum antibiotics empiric basis. White cell count is at 13 with a hemoglobin of 13.4, bicarb is at 18 with a sodium levels at 144 and a potassium level of 4.2. BUN is at 7.8 and a creatinine 0.6. No altered mentation. Family at the bedside. Objective - Vital Signs Vital signs: Vital Signs Temp 98.4 F 10/19/24 07:38 Pulse 59 L 10/19/24 07:38 Resp 16 10/19/24 07:38 BP 106/66 10/19/24 07:38 Pulse Ox 95 10/19/24 07:38 FiO2 Intake & Output 10/18/24 10/19/24 10/19/24 18:59 06:59 18:59 Other: Voiding Method Toilet # Voids 4 2 # Bowel Movements 1 - Exam GENERAL EXAM: Lethargic, 48-year-old female, awakens to verbal questioning and then quickly falls back to sleep without continuous stimulus patient is currently on room air oxygen HEAD: Normocephalic and atraumatic EYES: Normal reaction of pupils, equal size. NOSE: Clear with pink turbinates. THROAT: No erythema or exudates. Dry mucous membranes no nystagmus. Nonicteric sclera NECK: No masses, no JVD. CHEST: No chest wall deformity. LUNGS: Equal air entry with coarse lung sounds bilaterally throughout with expiratory wheezing. No conversational dyspnea or accessory muscle use.. CVS: S1 and S2 normal with no audible murmur, regular rhythm. No extra heart sounds ABDOMEN: No hepatosplenomegaly, active bowel sounds, no guarding or rigidity. SPINE: No scoliosis or deformity SKIN: No rashes CENTRAL NERVOUS SYSTEM: No focal deficits, tone is normal in all 4 extremities. EXTREMITIES: There is no peripheral edema, clubbing, or cyanosis. Peripheral pulses are intact. - Labs CBC & Chem 7: 10/19/24 03:07 10/19/24 03:07 Labs: Abnormal Lab Results - Last 24 Hours (Table) 10/19/24 10/19/24 Range/Units 03:07 03:07 WBC 13.82 H (4.50-10.00) X 10*3/uL MCV 97.5 H (80.0-97.0) FL MCHC 31.0 L (32.0-37.0) g/dL Immature Gran # 0.06 H (0.00-0.04) X 10*3/uL Neutrophils # 9.97 H (1.80-7.70) X 10*3/uL Eosinophils # 0.01 L (0.04-0.35) X 10*3/uL Chloride 115 H (96-109) mmol/L Carbon Dioxide 18.2 L (21.6-31.8) mmol/L BUN 7.8 L (9.0-27.0) mg/dL Total Bilirubin <0.2 L (0.3-1.2) mg/dL Albumin/Globulin Ratio 1.39 L (1.60-3.17) Ratio Microbiology - Last 24 Hours (Table) 10/16/24 20:15 Blood Culture - Preliminary Blood Assessment and Plan Assessment: Acute hypoxemic respiratory failure, secondary to COVID-19 infection, currently on room air oxygen. Chest x-ray showing coarsened interstitium without focal infiltrates, consider COVID viral pneumonia. Patient is on IV Solu-Medrol. Acute exacerbation of COPD secondary to above Moderate chronic obstructive pulmonary disease, with FEV1 65% of predicted, normally maintained on Trelegy inhaler, albuterol nebs [id number], and as needed albuterol HFA inhaler. Non-anion gap metabolic acidosis Current ongoing tobacco dependence, smokes approximately 1-1.5 and half packs per day. Chronic marijuana user History of cognitive deficit/impairment and epilepsy, last reported seizure was approximately 1-1/2 years ago History of bipolar disorder, major depression, and previous suicide attempt Plan: Clinically stable Currently on room air oxygen Chest x-ray from admission show no focal infiltrates. Coarsened interstitium. COVID-19 positive. Continue supplemental oxygen maintain oxygen saturation of 92% or greater Continue supportive care Combination of bronchodilators, Symbicort inhaler, and IV Solu-Medrol. May substitute Trelegy inhaler if made available As needed Tylenol for fevers Robitussin DM for cough Antibiotics previously started in ED, procalcitonin level is not elevated and antibiotics can be potentially discontinued D-dimer is not elevated and the patient is on Lovenox for DVT prophylaxis Smoking cessation counseling performed greater than 3 minutes, nicotine patch offered. We will continue to follow, possible discharge in a.m.
[2024-10-20 08:56] LABS: ALT 15 U/L (8-44); AST 19 U/L (13-35); Albumin/Globulin Ratio 1.33 Ratio (1.60-3.17); Alkaline Phosphatase 81 U/L (41-126); Blood Urea Nitrogen 5.4 mg/dL (9.0-27.0); Calcium 8.9 mg/dL (8.7-10.3); Carbon Dioxide 18.2 mmol/L (21.6-31.8); Chloride 110 mmol/L (96-109); Glucose 105 mg/dL (70-110); Potassium 3.9 mmol/L (3.5-5.5); Sodium 140 mmol/L (135-145); Total Bilirubin <0.2 mg/dL (0.3-1.2)
[2024-10-20 09:31] LABS: Basophils # (A) 0.02 X 10*3/uL (0.00-0.10); Basophils % (A) 0.2 %; Eosinophils # (A) 0 X 10*3/uL (0.04-0.35); Eosinophils % (A) 0 %; HCT 43.5 % (37.2-46.3); HGB 13.8 g/dL (12.0-15.0); Lymphocytes % (A) 32.4 %; MCH 31.1 pg (27.0-32.0); MCHC 31.7 g/dL (32.0-37.0); Mean Platelet Volume 10.6 FL (9.5-12.2); Monocytes # (A) 0.56 X 10*3/uL (0.20-1.00); Monocytes % (A) 6.5 %; NRBC Per 100 WBC 0 X 10*3/uL (0.00-0.01); Neutrophils # (A) 5.23 X 10*3/uL (1.80-7.70); Neutrophils % (A) 60.7 %; Platelet Count 272 X 10*3/uL (140-440); RBC 4.44 X 10*6/uL (4.10-5.20); WBC 8.63 X 10*3/uL (4.50-10.00)
--- NOTE | 2024-10-20 13:34 | P.PN ---
Subjective Progress Note Date: 10/20/24 Patient is a 48-year-old female with past medical history significant for COPD, cognitive impairment, bipolar disorder, epilepsy, and chronic ongoing tobacco dependence. Her primary care provider is Dr. Singh. She does follow in the pulmonary office for her moderate COPD. She has an FEV1 65% of predicted. She uses combination of Trelegy inhaler, albuterol nebs, and as need albuterol inhaler. She continues to smoke approximately 1-1.5 and half packs per day Patient lives with her mother, she reportedly has cognitive deficit/impairment acquired at . She also has history of epilepsy, but has not had a seizure in over 1-1/2 years. Patient's mother is at bedside and offers information. Starting approximately 1-1/2 weeks ago patient's mom noted upper respiratory- like infection type symptoms. Later her daughter developed similar symptoms and they both went to an urgent care center yesterday and were notably positive for COVID. The were referred to the ED. Patient's symptoms include shortness of breath, wheezing, cough with minimal sputum production again, headache. Did have a elevated temperature of 102 F at home. Has been noted to be more lethargic and generally weak at home with poor balance. Her appetite has been poor and she is complaining of some diarrhea. While in the ED, patient was noted to be again positive for COVID. Chest x-ray showing chronic COPD like changes with flattening of the diaphragm and hyperinflation. Coarsened interstitium, consider COVID-pneumonia. No focal infiltrates or dense consolidations. CBC unremarkable, no leukocytosis. CMP: Sodium 133, potassium 4.4, chloride 106, serum bicarb 19, BUN 10, creatinine 0.77, glucose 98. Lactic was 0.7. LFTs unremarkable. Troponin less than 0.012. Urinalysis unremarkable for infection. VBG done earlier showing a pCO2 of 42 and pH of 7.26. Patient being evaluated in the ED, she is tired and lethargic. She does arouse and answer questioning and then falls back asleep. Lung sounds are coarse with wheezing. Did have an elevated temperature with a Tmax of 101 F previously in the ED. She has been started on empiric antibiotics in the ED in the form of azithromycin and Rocephin. Also started on albuterol inhaler with Symbicort inhaler and IV Solu- Medrol. Normal saline infusing at 100 ml/hr. Current vital signs: Temperature 97.8 F, heart rate 77 bpm, blood pressure 107/56 mmHg, SpO2 is 89% on 2 L/min nasal cannula. On 10/18/2024, the patient is doing well. Feeling better compared to yesterday and she is currently on room air oxygen. She remains on Symbicort, Ventolin HFA 4 times a day [id number] and Spiriva 2 puffs once a day. She is on Robitussin for cough and congestion. She remains on IV Solu-Medrol 40 mg every 8 hours. White cell count is at 12 with a hemoglobin 13.4 and platelet count of 259. Sodium is at 141, potassium level is at 4.9, bicarb is at 17, LFTs are essentially within normal limits. Procalcitonin level is at 0.08. 10/19/2024, the patient is being seen for a follow-up. She is currently on room air oxygen. Continues to have some limited cough and wheeze. Maintained on Symbicort. Maintained on IV Solu-Medrol 40 mg every 8 hours. She is also on broad-spectrum antibiotics empiric basis. White cell count is at 13 with a hemoglobin of 13.4, bicarb is at 18 with a sodium levels at 144 and a potassium level of 4.2. BUN is at 7.8 and a creatinine 0.6. No altered mentation. Family at the bedside. The patient is seen today October 20, 2024 in follow-up on the regular medical floor. She is awake and alert in no acute distress. Maintaining O2 saturations in the 90s on room air. She is continued on Symbicort, Spiriva, albuterol. Remains on Solu-Medrol. Remains on ceftriaxone. Lovenox for DVT prophylaxis. NicoDerm patch in place. Blood culture revealed no growth. White count 8.6. Hemoglobin 13.8. Platelets 272. Sodium 140. Potassium 3.9. Bicarb 18. BUN 5.4. Creatinine 0.6. Glucose 105. Objective - Vital Signs Vital signs: Vital Signs Temp 97.5 F L 10/20/24 07:45 Pulse 62 10/20/24 07:45 Resp 18 10/20/24 07:45 BP 104/66 10/20/24 07:45 Pulse Ox 94 L 10/20/24 07:45 FiO2 Intake & Output 10/19/24 10/20/24 10/20/24 18:59 06:59 18:59 Intake Total 3000 800 Output Total 6 Balance 2994 800 Intake: Oral 3000 Other 800 Output: Urine 6 Other: Voiding Method Toilet - Exam GENERAL EXAM: Awake, alert 48-year-old female, on room air oxygen HEAD: Normocephalic and atraumatic EYES: Normal reaction of pupils, equal size. NOSE: Clear with pink turbinates. THROAT: No erythema or exudates. NECK: No masses, no JVD. CHEST: No chest wall deformity. LUNGS: Equal air entry with coarse lung sounds bilaterally throughout with expiratory wheezing. CVS: S1 and S2 normal with no audible murmur, regular rhythm. No extra heart sounds ABDOMEN: No hepatosplenomegaly, active bowel sounds, no guarding or rigidity. SPINE: No scoliosis or deformity SKIN: No rashes CENTRAL NERVOUS SYSTEM: No focal deficits, tone is normal in all 4 extremities. EXTREMITIES: There is no peripheral edema, clubbing, or cyanosis. Peripheral pulses are intact. - Labs CBC & Chem 7: 10/20/24 03:15 10/20/24 03:15 Labs: Abnormal Lab Results - Last 24 Hours (Table) 10/20/24 10/20/24 Range/Units 03:15 03:15 MCV 98.0 H (80.0-97.0) FL MCHC 31.7 L (32.0-37.0) g/dL Eosinophils # 0 L (0.04-0.35) X 10*3/uL Chloride 110 H (96-109) mmol/L Carbon Dioxide 18.2 L (21.6-31.8) mmol/L BUN 5.4 L (9.0-27.0) mg/dL BUN/Creatinine Ratio 9.00 L (12.00-20.00) Ratio Total Bilirubin <0.2 L (0.3-1.2) mg/dL Albumin/Globulin Ratio 1.33 L (1.60-3.17) Ratio Microbiology - Last 24 Hours (Table) 10/16/24 20:15 Blood Culture - Preliminary Blood Assessment and Plan Assessment: Acute hypoxemic respiratory failure, secondary to COVID-19 infection, currently on room air oxygen. Chest x-ray showing coarsened interstitium without focal infiltrates, consider COVID viral pneumonia. Patient is on IV Solu-Medrol. Acute exacerbation of COPD secondary to above Moderate chronic obstructive pulmonary disease, with FEV1 65% of predicted, normally maintained on Trelegy inhaler, albuterol nebs [id number], and as needed albuterol HFA inhaler. Non-anion gap metabolic acidosis Current ongoing tobacco dependence, smokes approximately 1-1.5 and half packs per day. Chronic marijuana user History of cognitive deficit/impairment and epilepsy, last reported seizure was approximately 1-1/2 years ago History of bipolar disorder, major depression, and previous suicide attempt Plan: The patient was seen and evaluated Labs and medications reviewed Cleared for discharge Stable and on room air Continue home Trelegy, albuterol Complete a prednisone taper Educated regarding smoking cessation Follow-up in our office in 1 week I have personally seen and examined the patient, performed the documentation and the assessment and plan as written. Number of minutes spent on the visit: 10 Dictation was produced using [employer] dictation software. Please excuse any grammatical, word or spelling errors.
[2024-10-20 14:27] VITALS: BP 112/68; PULSE 64; RESP 15; TEMP 98
[2024-10-21] MEDS ORDERED: predniSONE 20 MG TAB PO SCH (09:00)
== END 2024-10-20 17:13 | disposition home health service (06) | DRG 177 ==
LOC: EC 17:04 → 3SCARD 10-17 00:19 → 4SSUR 10-17 20:05
PROVIDERS: ADMIT Internal Medicine; ATTEND Internal Medicine
DX: U07.1 COVID-19 (principal); J12.82 Pneumonia due to coronavirus disease 2019; J96.01 Acute respiratory failure with hypoxia; J44.0 Chronic obstructive pulmonary disease with (acute) lower respiratory infection; J44.1 Chronic obstructive pulmonary disease with (acute) exacerbation; E87.20 Acidosis, unspecified; G40.909 Epilepsy, unspecified, not intractable, without status epilepticus; F17.200 Nicotine dependence, unspecified, uncomplicated; R41.89 Other symptoms and signs involving cognitive functions and awareness; F12.90 Cannabis use, unspecified, uncomplicated; F31.9 Bipolar disorder, unspecified; Z79.899 Other long term (current) drug therapy; Z91.51 Personal history of suicidal behavior; Z79.51 Long term (current) use of inhaled steroids; Z90.710 Acquired absence of both cervix and uterus
CPT/HCPCS: 36415; 70450; 70496; 70498; 71046; 80053; 81003; 82803; 83605; 84145; 84484; 85025; 85379; 85610; 85730; 87040; 87636; 93005; 94640; 96361; 96365; 96366; 96375; 96376; 99285

== ENCOUNTER 2024-12-21 19:47 | Outpatient (CLI) | payer BC, OTHER ==
--- NOTE | 2024-12-23 19:40 | P.PCN ---
Date of Procedure: 12/21/24 Operative Findings: Polysomnography report History 49-year-old female patient with symptoms of excessive hypersomnia with an [place] score of 10. The patient smokes marijuana on a daily basis and she is on a combination of medication that can cause increased drowsiness and sleepiness. The possibility of sleep apnea was also entertained. She does have features to indicate SAMANTHA and the patient has gained weight over the years and she has snoring. Based on that, polysomnography was ordered. Her comorbidities include COPD, bipolar disorder, epilepsy. Pertinent physical findings The weight is 175 pounds with a body mass index of 31 Technical description The patient was studied using a standard complex polysomnography protocol that included recording of the Lead II EKG, Central, occipital and frontal EEG, right and left outer canthus EOG, submental EMG, right and left anterior tibialis EMG, respiratory airflow by thermocouple and or pressure/flow transducer, respiratory efforts by abdominal and thoracic PVDF belts, oxygen saturation by cable oximetry. Position by observation synchronized the PSG. Equipment used: [email or web address]. Sleep characteristics The total recording duration was 385.5 minutes. The total sleep time was 372.5 minutes and overall sleep efficiency was 96.6%. The latency to sleep onset was 3.5 minutes. The latency to REM sleep was 138.5 minutes. The overall sleep architecture was characterized by 0.4% stage I, 58.5% stage II, 13.3% stage III and a 27.8% REM sleep. The wake after sleep onset time was 8.5 minutes. The total arousal index was 1.4/h. Respiratory analysis The respiratory analysis demonstrated a total of 17 obstructive events of which 0 were obstructive apneas, 0 were mixed apneas and 17 were obstructive hypopneas. The resulting AHI was 2.3. No central apneas noted. The respiratory arousal index was 0 Oxygenation analysis The patient's baseline pulse ox oxygen saturation while awake was 88%. Lowest oxygen saturation was 80% and the patient spent approximately 353 minutes of the sleep time below pulse ox of 89% which accounts for 91.7% of the overall recorded time. Sleep continuity The patient had a total of 9 arousals with an arousal index of 1.4 Periodic limb movement events None Cardiac summary Average heart rate was 76 with a minimum heart rate of 74 and a maximum heart rate of 78 Assessment Primary snoring, no evidence of any significant sleep breathing disorder. The patient had an AHI of 2.3 Chronic hypoxemia with evidence of nocturnal oxygen desaturations with a minimum pulse ox of 80% COPD with an FEV1 of 65% of predicted maintained on Trelegy Ellipta on outpatient basis Chronic tobacco smoker Chronic marijuana user History of cognitive deficit/impairment and epilepsy, last reported seizure was approximately 1-1/2 years ago History of bipolar disorder, major depression, and previous suicide attempt Plan Recommend oxygen supplementation 2 L/min during sleep No need for CPAP therapy Optimize COPD Weight loss Will work on adjusting her medication as the patient's chronic hypersomnia is probably related to combination of drugs effect and this will be further discussed in the office.
== END 2024-12-22 06:00 | disposition home or self-care (01) ==
LOC: 3 N SLEEP 19:47
PROVIDERS: ATTEND Internal Medicine Critical Care Medicine
DX: J44.9 Chronic obstructive pulmonary disease, unspecified (principal); R09.02 Hypoxemia; F12.90 Cannabis use, unspecified, uncomplicated; F17.210 Nicotine dependence, cigarettes, uncomplicated; Z86.59 Personal history of other mental and behavioral disorders; Z91.51 Personal history of suicidal behavior; Z86.69 Personal history of other diseases of the nervous system and sense organs
CPT/HCPCS: 95810